=== PATIENT | male | born 1955 | race Caucasian/White ===

== ENCOUNTER 2017-04-13 13:30 | Outpatient (RCR) | payer OTHER, SELFPAY ==
[2017-03-16 01:30] VITALS: BP 126/90; PULSE 105; RESP 18; TEMP 37.1; BMI 24.7
[2017-03-17 09:24] VITALS: BP 142/83; PULSE 69; RESP 18; TEMP 36.8; BMI 24.7
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
[2017-03-19 14:55] VITALS: BP 149/91; PULSE 93; RESP 18; TEMP 36.6; BMI 24.7
[2017-03-24 13:54] VITALS: BP 156/94; PULSE 89; RESP 16; TEMP 37.4; BMI 24.7
[2017-03-30 11:43] VITALS: BP 133/72; PULSE 80; RESP 18; TEMP 36.8; BMI 24.7
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
[2017-04-01 11:43] VITALS: BP 140/84; PULSE 87; RESP 18; TEMP 36.9; BMI 24.7
[2017-04-03 10:06] VITALS: BP 131/81; PULSE 79; TEMP 37; BMI 24.7
[2017-04-06 12:53] VITALS: BP 140/107; PULSE 98; RESP 16; TEMP 37.1; BMI 24.7
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
[2017-04-13 13:57] VITALS: BP 136/89; PULSE 107; RESP 18; TEMP 37.6; BMI 24.7
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
== END 2017-04-15 23:59 ==
LOC: WC 13:30
PROVIDERS: Visit Provider Surgery
DX: T81.30XA Disruption of wound, unspecified, initial encounter (principal); C18.7 Malignant neoplasm of sigmoid colon; Z93.2 Ileostomy status; Z87.891 Personal history of nicotine dependence
CPT/HCPCS: 97605; 97607; 99211; 99212; 99213; G0463

== ENCOUNTER 2017-05-11 15:00 | Outpatient (RCR) | payer OTHER, SELFPAY ==
[2017-04-13 13:57] VITALS: BP 136/89
[2017-04-16 00:50] VITALS: PULSE 107; RESP 18; TEMP 37.6
[2017-04-17 11:30] VITALS: BP 130/80; PULSE 62; RESP 16; TEMP 36.8; BMI 24.7
[2017-04-20 12:32] VITALS: BP 133/87; PULSE 88; RESP 20; TEMP 37.7; BMI 24.7
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
[2017-04-28 08:24] VITALS: BP 126/80; PULSE 106; RESP 18; TEMP 36.7; BMI 24.7
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
[2017-05-01 12:33] VITALS: BP 130/82; PULSE 96; RESP 18; TEMP 35.8; BMI 24.7
[2017-05-04 14:44] VITALS: BP 119/73; PULSE 93; RESP 18; TEMP 37.4; BMI 24.7
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
[2017-05-08 10:28] VITALS: BP 124/92; PULSE 81; RESP 16; TEMP 37.4; BMI 24.7
[2017-05-11 15:13] VITALS: BP 126/76; PULSE 93; RESP 18; TEMP 37; BMI 24.7
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
== END 2017-05-13 23:59 ==
LOC: WC 15:00
PROVIDERS: Visit Provider Surgery
DX: T81.30XA Disruption of wound, unspecified, initial encounter (principal); Y83.8 Other surgical procedures as the cause of abnormal reaction of the patient, or of later complication, without mention of misadventure at the time of the procedure; Z90.49 Acquired absence of other specified parts of digestive tract; Z85.038 Personal history of other malignant neoplasm of large intestine; Z93.2 Ileostomy status; Z87.891 Personal history of nicotine dependence; Z79.899 Other long term (current) drug therapy
CPT/HCPCS: 11042; 97607; 99211; 99212; 99213; G0463

== ENCOUNTER 2017-06-01 13:00 | Outpatient (RCR) | payer OTHER, SELFPAY ==
[2017-05-14 00:40] VITALS: BP 133/87; PULSE 93; RESP 18; TEMP 37; BMI 24.7
[2017-05-18 14:19] VITALS: BP 140/110; PULSE 105; RESP 16; TEMP 37; BMI 24.7
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
[2017-05-25 12:39] VITALS: BP 155/90; PULSE 78; RESP 16; TEMP 36.6; BMI 24.7
[2017-05-28 14:11] VITALS: BP 129/74; PULSE 83; RESP 16; BMI 24.7
[2017-06-01 13:00] VITALS: BP 130/86; PULSE 95; RESP 16; TEMP 37; BMI 24.7
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
[2017-06-08 08:13] VITALS: BP 129/74; PULSE 89; RESP 16; TEMP 37.5; BMI 24.7
== END 2017-06-13 23:59 ==
LOC: WC 13:00
PROVIDERS: Visit Provider Surgery
DX: T81.31XA Disruption of external operation (surgical) wound, not elsewhere classified, initial encounter (principal); Z93.2 Ileostomy status; Z90.49 Acquired absence of other specified parts of digestive tract; Z87.891 Personal history of nicotine dependence; Y83.8 Other surgical procedures as the cause of abnormal reaction of the patient, or of later complication, without mention of misadventure at the time of the procedure; C18.7 Malignant neoplasm of sigmoid colon
CPT/HCPCS: 97607; 99212; 99213; G0463

== ENCOUNTER 2017-07-13 12:30 | Outpatient (RCR) | payer OTHER, SELFPAY ==
[2017-06-14 00:36] VITALS: BP 133/87; PULSE 89; RESP 16; TEMP 37.5; BMI 24.7
[2017-06-16 13:00] VITALS: BP 118/72; PULSE 86; RESP 18; TEMP 36.9; BMI 24.7
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
[2017-06-23 08:08] VITALS: BP 127/59; PULSE 87; RESP 18; TEMP 36.6; BMI 24.7
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
[2017-06-29 14:53] VITALS: BP 126/80; PULSE 93; RESP 18; TEMP 36.7; BMI 24.7
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
[2017-07-06 12:28] VITALS: BP 120/85; PULSE 86; RESP 16; TEMP 36.8; BMI 24.7
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
[2017-07-09 16:49] VITALS: BP 143/96; PULSE 91; RESP 16; TEMP 37.2; BMI 24.7
[2017-07-13 12:31] VITALS: BP 120/80; PULSE 94; RESP 18; TEMP 37.2; BMI 24.7
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
== END 2017-07-13 23:59 ==
LOC: WC 12:30
PROVIDERS: Visit Provider Surgery
DX: T81.31XA Disruption of external operation (surgical) wound, not elsewhere classified, initial encounter (principal); Y83.9 Surgical procedure, unspecified as the cause of abnormal reaction of the patient, or of later complication, without mention of misadventure at the time of the procedure; Z90.49 Acquired absence of other specified parts of digestive tract; Z93.2 Ileostomy status; C18.7 Malignant neoplasm of sigmoid colon; Z87.891 Personal history of nicotine dependence
CPT/HCPCS: 11042; 87070; 87075; 87077; 87186; 87205; 97605; 97607; 99212; 99213; G0463

== ENCOUNTER 2017-08-03 12:30 | Outpatient (RCR) | payer OTHER, SELFPAY ==
[2017-07-14 00:33] VITALS: BP 133/87; PULSE 94; RESP 18; TEMP 37.2; BMI 24.7
[2017-07-27 13:06] VITALS: BP 115/62; PULSE 89; RESP 18; TEMP 37; BMI 24.7
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
[2017-08-03 12:38] VITALS: BP 121/69; PULSE 82; RESP 16; TEMP 37.2; BMI 24.7
--- NOTE | 2017-08-04 09:31 | PN_ITS ---
DATE OF SERVICE: 08/03/2017 The patient presents today in routine followup relative to his abdominal surgical wound dehiscence. He is currently using Collagen Hydrogel topically. He has no new complaints. The size of the patient's surgical wound dehiscence is smaller than that noted previously. The wound dimensions are documented elsewhere, as well as vital signs and other measurements. The appearance of the surgical wound dehiscence is improved. Not only is smaller in size, but the base of the wound is pink and healthy in appearance, with active granulation tissue. There is evidence of peripheral epithelialization. There is no sign of infection or cellulitis. The patient's abdominal stoma is pink and healthy in appearance, and functional. The patient is to continue with the use of collagen Hydrogel topically. All other measures are also to be continued, including enhanced nutritional intake, etc. The patient will be undergoing ____ and chemotherapy this week, and one more course 2 weeks from now. He is scheduled to interact with his oncologist in the near future, and has been encouraged to ask as to the length of effect of his chemotherapy agents, as it is the chemotherapeutic agents, which are thought to be impairing wound healing at this time. The patient will return in 2 weeks for reassessment. The patient is not a smoker. Influenza vaccine was not administered today. The patient weighs 175 pounds. He stands 5 feet 10 inches tall. His BMI is 25.1, which is normal. Jordan Cleveland MD T: NTS JOB: [id number]
--- NOTE | 2017-08-04 09:45 | PN_ITS ---
DATE OF SERVICE: 08/03/2017 The patient's abdominal surgical wound dehiscence was debrided today. Debridement was performed in standard fashion by sterile 5-mm curette. An excisional debridement was performed, through all layers of the dermis and into the subcutaneous tissue. In this manner, the nonviable material and bioburden was removed. A moderate amount of bleeding was encountered, which was easily controlled with manual pressure. The procedure was performed after the application of 4% lidocaine gel. Manual pressure was used to achieve hemostasis. The patient tolerated the procedure well. Jordan Cleveland MD T: NTS JOB: [id number]
== END 2017-08-13 23:59 ==
LOC: WC 12:30
PROVIDERS: Visit Provider Surgery
DX: T81.30XA Disruption of wound, unspecified, initial encounter (principal); S31.109A Unspecified open wound of abdominal wall, unspecified quadrant without penetration into peritoneal cavity, initial encounter; C18.7 Malignant neoplasm of sigmoid colon; Y83.8 Other surgical procedures as the cause of abnormal reaction of the patient, or of later complication, without mention of misadventure at the time of the procedure; K63.2 Fistula of intestine; Z90.49 Acquired absence of other specified parts of digestive tract; Z93.2 Ileostomy status; Z86.19 Personal history of other infectious and parasitic diseases; Z87.891 Personal history of nicotine dependence
CPT/HCPCS: 11042

== ENCOUNTER 2017-09-07 17:10 | Outpatient (RCR) | payer OTHER, SELFPAY ==
[2017-08-14 00:32] VITALS: BP 121/69; PULSE 82; RESP 16; TEMP 37.2; BMI 24.7
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
[2017-09-07 15:01] VITALS: RESP 18; TEMP 37; BMI 24.7
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
== END 2017-09-12 23:59 ==
LOC: WC 17:10
PROVIDERS: Visit Provider Surgery
DX: T81.30XA Disruption of wound, unspecified, initial encounter (principal); Y83.8 Other surgical procedures as the cause of abnormal reaction of the patient, or of later complication, without mention of misadventure at the time of the procedure; C18.7 Malignant neoplasm of sigmoid colon; Z87.891 Personal history of nicotine dependence; Z79.899 Other long term (current) drug therapy
CPT/HCPCS: 11042; 99211; G0463

== ENCOUNTER 2017-10-12 15:15 | Outpatient (RCR) | payer OTHER, SELFPAY ==
[2017-09-13 00:32] VITALS: BP 121/69; PULSE 82; RESP 18; TEMP 37; BMI 24.7
[2017-09-21 13:31] VITALS: BP 125/87; PULSE 79; RESP 18; TEMP 37; BMI 24.7
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
[2017-10-12 15:09] VITALS: BP 145/81; PULSE 80; RESP 20; TEMP 37.5; BMI 24.7
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
== END 2017-10-13 23:59 ==
LOC: WC 15:15
PROVIDERS: Visit Provider Surgery
DX: T81.31XA Disruption of external operation (surgical) wound, not elsewhere classified, initial encounter (principal); C18.7 Malignant neoplasm of sigmoid colon; Y83.8 Other surgical procedures as the cause of abnormal reaction of the patient, or of later complication, without mention of misadventure at the time of the procedure; Z90.49 Acquired absence of other specified parts of digestive tract; Z93.2 Ileostomy status; Z86.19 Personal history of other infectious and parasitic diseases; Z87.891 Personal history of nicotine dependence
CPT/HCPCS: 11042; 99213; G0463

== ENCOUNTER → 2019-06-09 12:56 | Outpatient (CLI) | payer MEDICARE, SELFPAY ==
[2017-10-14 00:35] VITALS: BMI 24.7
[2019-06-09 13:32] LABS: Absolute Lymphocyte Count 2.98 X10^3/uL (0.83-4.51); Basophil# 0.07 X10^3/uL; Basophil% 0.9 % (0-1); Eosinophil# 0.24 X10^3/uL; Eosinophils% 2.9 % (0-5); Hematocrit 45.9 % (40-54); Hemoglobin 15.4 g/dL (13.0-16.5); Lymphocyte # 2.98 X10^3/ul (4.0); Lymphocyte % 36.6 % (19-41); Mean Corp Hgb Conc 33.6 g/dL (32-36); Mean Corpuscular Hgb 31.3 pg (27.0-32.0); Mean Corpuscular Volume 93.3 fL (80-94); Mean Platelet Vol. 9.9 fl (6.2-12.0); Monocyte# 0.84 X10^3/uL; Monocyte% 10.3 % (0-10); NRBC Flagged by Analyzer 0 % (0-5); Neutrophil # 3.99 X10^3/uL (2.7-7.7); Neutrophil % 49.1 % (47-70); Platelet Count 200 K/mm3 (150-450); RBC Distribution Width CV 12.6 % (11.6-14.6); Red Blood Count 4.92 M/mm3 (4.6-6.2); White Blood Count 8.1 K/mm3 (4.4-11.0)
[2019-06-09 13:51] LABS: AST(SGOT) 29 U/L (15-37); Alanine Aminotransfer ALT/SGPT 50 U/L (16-61); Alkaline Phosphatase 78 U/L (45-117); Anion Gap 7 (5-15); BUN 23 mg/dL (7-18); BUN/Creat Ratio 19.3 RATIO (10-20); Chloride 105 mmol/L (98-107); Creatinine, Serum 1.19 mg/dL (0.70-1.30); EST Glomerular Filtration Rate 65 mL/min (>60); Est Glom Filt Rate - Afr Amer 79 mL/min (>60); Globulin 4.1 g/dL (2.2-4.2); Glucose 88 mg/dL (74-106); Potassium 4.2 mmol/L (3.5-5.1); Protein, Total 8.1 g/dL (6.4-8.2); Sodium Level 138 mmol/L (136-145)
[2019-06-10 12:49] LABS: Carcinoembryonic Antigen 4.1 ng/mL (0.0-4.7)
== END ==
DX: Z85.038 Personal history of other malignant neoplasm of large intestine (principal)
CPT/HCPCS: 36415; 80053; 82378; 85025

== ENCOUNTER → 2019-09-14 13:16 | Outpatient (CLI) | payer MEDICARE, SELFPAY ==
[2017-10-14 00:35] VITALS: BMI 24.7
[2019-09-14 13:53] LABS: Absolute Lymphocyte Count 2.35 X10^3/uL (0.83-4.51); Absolute Neutrophil Count 3.7 X10^3/uL (2.0-7.7); Basophil# 0.06 X10^3/uL; Basophil% 0.9 % (0-1); Eosinophils% 1.5 % (0-5); Hematocrit 42.8 % (40-54); Hemoglobin 14.6 g/dL (13.0-16.5); Lymphocyte # 2.35 X10^3/ul (4.0); Lymphocyte % 34.6 % (19-41); Mean Corp Hgb Conc 34.1 g/dL (32-36); Mean Corpuscular Hgb 32.3 pg (27.0-32.0); Mean Corpuscular Volume 94.7 fL (80-94); Mean Platelet Vol. 9.6 fl (6.2-12.0); Monocyte# 0.56 X10^3/uL; Monocyte% 8.2 % (0-10); NRBC Flagged by Analyzer 0 % (0-5); Neutrophil % 54.5 % (47-70); Platelet Count 200 K/mm3 (150-450); RBC Distribution Width CV 12.6 % (11.6-14.6); RBC Distribution Width SD 43.6 fl (35.1-43.9); Red Blood Count 4.52 M/mm3 (4.6-6.2); White Blood Count 6.8 K/mm3 (4.4-11.0)
[2019-09-14 14:10] LABS: ALB/GLOB Ratio 1.1 RATIO (0.9-2.4); AST(SGOT) 28 U/L (15-37); Alanine Aminotransfer ALT/SGPT 45 U/L (16-61); Albumin, Serum 3.9 g/dL (3.2-5.0); Alkaline Phosphatase 64 U/L (45-117); Anion Gap 5 (5-15); BUN 19 mg/dL (7-18); BUN/Creat Ratio 12.8 RATIO (10-20); Calcium,Total 8.8 mg/dL (8.5-10.1); Chloride 109 mmol/L (98-107); Creatinine, Serum 1.48 mg/dL (0.70-1.30); EST Glomerular Filtration Rate 51 mL/min (>60); Est Glom Filt Rate - Afr Amer 61 mL/min (>60); Globulin 3.7 g/dL (2.2-4.2); Glucose 112 mg/dL (74-106); Potassium 3.8 mmol/L (3.5-5.1); Protein, Total 7.6 g/dL (6.4-8.2); Sodium Level 139 mmol/L (136-145)
[2019-09-17 16:10] LABS: Carcinoembryonic Antigen 4.9 ng/mL (0.0-4.7)
== END ==
PROVIDERS: Referring Provider Internal Medicine Medical Oncology; Visit Provider Internal Medicine Medical Oncology
DX: C18.6 Malignant neoplasm of descending colon (principal)
CPT/HCPCS: 36415; 80053; 82378; 85025

== ENCOUNTER 2021-12-07 17:30 | Emergency (ER) | payer MEDICARE, BC, SELFPAY ==
[2021-12-07 17:31] VITALS: BP 139/99; PULSE 89; RESP 16; TEMP 37.4; O2SAT 95; BMI 28.4
[2021-12-07 17:33] VITALS: BP 139/99; PULSE 89; RESP 16; TEMP 37.4; O2SAT 95
--- NOTE | 2021-12-07 18:04 | RAD_ITS ---
STUDY: X-RAY - RIGHT HAND, ATTENTION 3 FINGER REASON FOR EXAM: Male, 66 years old. Injury/Pain -- Right long finger TECHNIQUE: 3 view(s) of the finger were obtained. COMPARISON: None. FINDINGS: Normal metacarpal head. Normal metacarpophalangeal joint. Normal proximal phalanx. Normal middle phalanx. Normal distal phalanx. Normal proximal interphalangeal joint. Normal distal interphalangeal joint. RAD/Finger(s) Min 2 Views IMPRESSION: Normal x-ray examination of the finger. Electronically Signed: Brayden Soliz MD at 18:38 EDT ,
--- NOTE | 2021-12-07 18:33 | EX.ED.UPPERE ---
HPI History of Present Illness Chief Complaint: Wound Detail of Chief Complaint: Pain and swelling radial side right long finger Informant: patient Onset/Context/Timing Onset: Weeks (Wound concern of splinter foreign body right long finger 1 week ago) Context: Sudden Onset Timing: Continuous Quality of Pain: Dull and Aching Location: Soft tissue swelling Current Severity: Mild Maximum Severity: Moderate Worsened by: Pain to palpation Relieved by: Remaining still Associated Symptoms Associated Symptoms: Negative for Parasthesia, Weakness or Loss of Funtion Narrative Tetanus Immunization: 5-10 years Prior similar symptoms: No Recent Illness/Hospitalization: No PFSH PFSH Medical History Colon cancer Home Medications NK 12/07/21 [History Last Taken Unknown] Allergy/AdvReac Type Severity Reaction Status Date / Time No Known Allergies Allergy Verified 01/30/17 19:34 Social History (Updated 12/07/21 @ 18:[address] Adrian Hyman MD) Smoking Status: Former smoker substance use type: does not use ROS ROS ED Constitutional Constitutional ED: Denies chills, fever(s), subjective, sweats or weight loss Eyes Eyes: Denies blurry vision, change in vision or diplopia Integumentary Reports abscess; Denies Abrasions or rash Neurologic Neurologic: Denies paresthesias or weakness Endocrine Endocrinology: Denies cold intolerance or heat intolerance Hematologic/Lymphatic Hematologic/Lymphatic: Denies easy bleeding or easy bruising EXAM Physical Exam Const Vital Signs: 12/07/21 17:31 12/07/21 17:33 12/07/21 17:33 Temperature 99.3 F H 99.3 F H 99.3 F H Temperature Source Temporal Temporal Temporal Pulse Rate 89 89 89 Respiratory Rate 16 16 16 Blood Pressure 139/99 H 139/99 H 139/99 H Blood Pressure Mean 112 112 112 Pulse Ox 95 95 95 Oxygen Delivery Method Room Air Room Air Room Air Positive well nourished and well developed General Appearance ED: well developed and NAD; Negative for cyanotic or diaphoretic HEENT Reports moist mucous membranes normocephalic and atraumatic Eyes PERRL and EOMs intact bilaterally Resp normal respiratory effort and clear to auscultation bilaterally Cardio regular rate, regular rhythm, S1 normal heart sound, S2 normal heart sound and no murmurs Extremity Extremity Narrative: There is tenderness and fluctuance radial side of the right long finger near the cuticle. Wound. Patient states he attempted to open the wound with a knife. Neuro oriented x3 and CN's II-XII intact bilaterally Psych mental status grossly normal Skin General Skin Exam: Negative for petechiae Lesions: No no lesions Rashes: No no rashes Trauma: laceration MDM MDM MDM Narrative Medical decision making narrative: X-ray was obtained. X-ray reveals no foreign body. There is no evidence of osteomyelitis. Plan will be to anesthetize finger and do a formal I&D. Lab Data Attestation: I reviewed the patient's lab results. Radiography Diagnostic Testin views of the right long finger obtained with no evidence of foreign body, osteomyelitis or any bony abnormality. This was interpreted by me at 1837 Procedures Other Procedures Procedure(s): It was Nestabs 5 metacarpal nerve block using 1% lidocaine. Total of 3 cc was infiltrated. After 15 minutes incision was made. There was significant mount of purulent material. There is approximately 2 cc of green thick Material noted. There was no foreign body. Patient was discharged home with appropriate home-going instructions. Discharge Plan Triage Chief Complaint: Wound ED Provider: Adrian Hyman Dx/Rx/DC Orders Clinical Impression: Paronychia of finger Prescriptions: No Action NK Primary Care Provider: Zacarias Madrigal Referrals: Zacarias Madrigal MD [Primary Care Provider] - 3-5 Days if not improving Activity Restrictions/Additional Instructions: Soak your right long finger in warm soapy water 6 times a day for the next 2 to 3 days Disposition Disposition: Home, Self Care
[2021-12-07 19:35] VITALS: BP 127/81; RESP 18
[2021-12-07] MEDS: Lidocaine 1% (20 ml mdv) 20 ML Vial INFILT (19:38)
== END 2021-12-07 20:18 | disposition home or self-care (01) ==
PROVIDERS: Emergency Provider Emergency Medicine; PCP Family Medicine; Visit Provider Emergency Medicine
DX: L03.011 Cellulitis of right finger (principal); Z87.891 Personal history of nicotine dependence
CPT/HCPCS: 26010; 10060; 73140; 99282

== ENCOUNTER → 2022-03-27 | Outpatient (CLI) | payer MEDICARE, BC, SELFPAY | END | disposition home or self-care (01) | LOC: LAB 10:10 | PROVIDERS: PCP Family Medicine; Visit Provider Internal Medicine Medical Oncology | DX: C18.6 Malignant neoplasm of descending colon (principal) | CPT/HCPCS: 36415; 82378 ==

== ENCOUNTER 2023-04-18 10:02 | Emergency (ER) | payer MEDICARE, BC, SELFPAY ==
[2023-04-18 10:03] VITALS: BP 136/78; PULSE 64; RESP 16; TEMP 36.4; O2SAT 97; BMI 26.3
--- NOTE | 2023-04-18 10:20 | CT_ITS ---
EXAM: CT ABDOMEN AND PELVIS WITH INTRAVENOUS CONTRAST CLINICAL INDICATION: postop abd pain/discharge, eval for abscess/seroma TECHNIQUE: Helically acquired images were obtained of the abdomen and pelvis with intravenous contrast. This CT exam was performed using one or more of the following dose reduction techniques: automated exposure control, adjustment of the mA and/or kV according to patient size, and/or use of iterative reconstruction technique. CONTRAST: IV 100mL [id number]-370 COMPARISON: CT Abdomen Pelvis dated 12/27/2016 FINDINGS: LOWER THORAX: Mild centrilobular emphysematous changes of the lung bases again seen. ABDOMEN: LIVER: Normal. Homogeneous. No focal mass. CT/Abdomen/Pelvis W IV Cont ONLY IMPRESSION: 1. Postoperative changes of anterior abdominal wall surgical mesh and near total colectomy. Fluid collections along the incision site which may represent seroma or abscess formation. 2. Cholelithiasis. Electronically Signed: Suresh Grubbs MD at 11:30 EST ,
--- NOTE | 2023-04-18 10:20 | EDS_ITS ---
HPI HPI - GI History of Present Illness Chief Complaint: Wound Informant: patient Narrative Narrative: Patient had a left ventral herniorrhaphy along with colostomy reversal a little less than 1 month ago on 03/24 at [facility]. He states everything has been going very well. He has been eating and having bowel movements normally. He has an open wound that he is packing himself twice daily with moist strip gauze. In the past week, there has been more blood on the gauze than he had initially, occasionally saturating the packing but not the gauze that he puts over top of that. This has been going on for the past week. Discussed with his surgeon who advised that he be evaluated in the ER since it is the weekend. Patient states that there is erythema radiating cranially from that wound that is new in the past week, he states it is a little sore but not extremely painful and he denies any fevers, chills, other systemic symptoms. [facility] Medical History (Updated 04/18/23 @ 12:[address] Curly Guardado MD) Colon cancer Home Medications NK 12/07/21 [History Last Taken Unknown] cephalexin 500 mg capsule 500 mg PO Q6 #40 CAPSULES 04/18/23 [Rx Last Taken Unknown] sulfamethoxazole 800 mg-trimethoprim 160 mg tablet 1 tab PO BID #20 TABLETS 04/18/23 [Rx Last Taken Unknown] Allergy/AdvReac Type Severity Reaction Status Date / Time No Known Allergies Allergy Verified 04/18/23 10:02 Surgical History (Updated 04/18/23 @ 10:[address] Curly Guardado MD) History of colostomy reversal History of hernia repair Social History Smoking Status: Former smoker substance use type: does not use ROS ROS ED Constitutional Constitutional ED: Denies chills or fever(s) Eyes Eyes: Denies change in vision or diplopia ENT ENT ED: Denies rhinorrhea or sore throat Cardiovascular Cardiovascular: Denies chest pain or palpitations Respiratory/Chest Respiratory/Chest: Denies cough or dyspnea Gastrointestinal Gastrointestinal: Denies abdominal pain, diarrhea, nausea or vomiting Genitourinary Genitourinary ED: Denies dysuria or hematuria Musculoskeletal Musculoskeletal: Denies back pain or neck pain Integumentary Reports as per HPI, erythema and wounds; Denies abscess or rash Neurologic Neurologic: Denies headache(s), paresthesias or weakness Psychiatric Psychiatric: Denies anxiety or suicidal thoughts EXAM Physical Exam Const Vital Signs: 04/18/23 10:03 Temperature 97.6 F L Temperature Source Temporal Pulse Rate 64 Respiratory Rate 16 Blood Pressure 136/78 H Blood Pressure Mean 97 Pulse Ox 97 Oxygen Delivery Method Room Air Positive well nourished and well developed Constitutional Narrative: Well-appearing General Appearance ED: well developed and NAD HEENT Reports moist mucous membranes normocephalic and atraumatic Eyes PERRL and EOMs intact bilaterally Neck full ROM and supple Resp normal respiratory effort and clear to auscultation bilaterally Cardio regular rate, regular rhythm and no murmurs GI non-tender and non-distended GI Narrative: Large midline abdominal surgical incision without dehiscence. There is an open wound that is about 2.5-3 cm deep with strip gauze packing in it, there is no active bleeding or discharge. There is a scant amount of serous discharge on the gauze covering this, and in pulling out the packing, there is minimal amount of serosanguineous discharge on it no gross blood, no active bleeding, the inside is basically consistent with mucosa/abdominal wall without signs of necrotic tissue or obvious infection. However there is mildly tender erythema with induration extending from here cranially about 6 cm. There is no fluctuance or palpable abscess and the rest of the abdomen is extremely benign. Auscultation: normoactive bowel sounds Palpation: soft Back/Spine no CVA tenderness General Back: other FROM Extremity normal to inspection General Extremety ED: Negative for edema, pulses abnormal or tenderness General Extremity: Negative for edema or pulses abnormal Neuro oriented x3, CN's II-XII intact bilaterally and no sensory deficits noted Sensorium / Orientation: awake and alert Motor Exam: strength 5/5 throughout Psych mental status grossly normal and thought process normal Skin no rashes or lesions noted and no wounds MDM MDM MDM Narrative Medical decision making narrative: This looks like a relatively mild abdominal wall cellulitis. However since it is emanating from the open wound and he is having more bloody discharge from the wound itself, I think it would be indicated to perform a CT to evaluate for a possible infected seroma or abscess. This was performed I reviewed the images of the CT as well as the result which I agree with, the 1 fluid collection that appears to be easily drainable is directly beneath the erythematous area I was concerned would be cellulitis. See the procedure note, I recommended that we aspirate this area to help differentiate whether it is a seroma or an abscess. After aspirating 9.5 cc of what appears to be purulent thick pus, it clearly is an abscess which correlates with the overlying erythema and swelling. It deflated with aspiration of the contents. There is not appear to be christopher communication with the wound that he has packing, therefore aspiration was indicated. Given that it is pus, MRSA is a consideration, and he has a history of a multidrug-resistant organism infection of some kind, so I am covering him for now with broad-spectrum coverage for MRSA as well as strep and nonresistant staph, with a dose of IV Zosyn as well as placing him on cephalexin and Bactrim going forward. He will follow-up with his surgeon this coming week, I had the CT images sent to the [facility] warrant server and he is directed to sign into the hospital portal so he can access to culture when he follows up. Lab Data Attestation: I reviewed the patient's lab results. Labs: Laboratory Results - last 24 hr 04/18/23 10:28 WBC 8.7 RBC 3.95 L Hgb 11.8 L Hct 35.6 L MCV 90.1 MCH 29.9 MCHC 33.1 RDW Std Deviation 42.5 RDW Coeff of Sofie 12.7 Plt Count 236 MPV 8.4 Immature Gran % (Auto) 0.300 Neut % (Auto) 62.7 Lymph % (Auto) 21.6 [place] % (Auto) 11.8 H Eos % (Auto) 3.0 Baso % (Auto) 0.6 Absolute Neuts (auto) 5.5 Absolute Lymphs (auto) 1.88 Nucleated RBC % 0 Sodium 133 L Potassium 4.2 Chloride 102 Carbon Dioxide 27.0 Anion Gap 4 L BUN 11 Creatinine 1.02 Estim Creat Clear Calc 70.57 Est GFR (MDRD) Af Amer 93 Est GFR (MDRD) Non-Af 77 BUN/Creatinine Ratio 10.8 Glucose 101 Calcium 9.2 Radiography Diagnostic Testing: Clinical Impression(s) from Imaging Studies Abdomen/Pelvis CT 04/18/23 10:20 IMPRESSION: 1. Postoperative changes of anterior abdominal wall surgical mesh and near total colectomy. Fluid collections along the incision site which may represent seroma or abscess formation. 2. Cholelithiasis. Electronically Signed: Suresh Grubbs MD at 11:30 EST , Procedures Other Procedures Procedure(s): Simple abscess incision/drainage: After informed consent, the area of the abdominal wall with overlying erythema that correlates with the abdominal wall abscess on the CT was prepped with isopropanol, subcutaneously locally anesthetized with 1 cc of plain 1% lidocaine, again prepped with Betadine swab, and punctured with an 18-gauge needle on a 10 cc syringe, with gentle redirection of the needle and palpation of the surrounding area I was able to aspirate 9.5 cc of pus. Dressed with gauze subsequently, tolerated well no pain with the procedure, therefore very low likelihood of peritoneum penetration. Discharge Plan Triage Chief Complaint: Wound ED Provider: Curly Guardado Dx/Rx/DC Orders Clinical Impression: Abscess of postoperative wound of abdominal wall Instructions: ED Abscess Incision And Drainage Prescriptions: New sulfamethoxazole-trimethoprim [sulfamethoxazole-trimethoprim] 800-160 mg tablet 1 tab PO BID Qty: 20 0RF cephalexin [cephalexin] 500 mg capsule 500 mg PO Q6 Qty: 40 0RF No Action NK Primary Care Provider: Zacarias Madrigal Referrals: [facility] Surgeon, your [Other] - 3-5 Days Zacarias Madrigal MD [Primary Care Provider] - Activity Restrictions/Additional Instructions: CT was sent to [facility] servers, so your surgeon should be able to view the images which were pre-aspiration of the abscess. We sent a culture of the contents that was aspirated, which should return results within 2 or 3 days, make sure you follow-up as soon as possible so that your antibiotic coverage can be adjusted appropriately. You have a higher chance of having diarrhea and/or C. difficile infection being on 2 antibiotics. To help mitigate this risk, take either a twice daily probiotic or eat yogurt every day while you are on the antibiotics. Disposition Disposition: Home, Self Care
[2023-04-18 10:34] LABS: Absolute Lymphocyte Count 1.88 X10^3/uL (0.83-4.51); Absolute Neutrophil Count 5.5 X10^3/uL (2.0-7.7); Basophil# 0.05 X10^3/uL; Basophil% 0.6 % (0-1); Eosinophil# 0.26 X10^3/uL; Hematocrit 35.6 % (40-54); Hemoglobin 11.8 g/dL (13.0-16.5); Lymphocyte # 1.88 X10^3/ul (0.83-4.51); Lymphocyte % 21.6 % (19-41); Mean Corp Hgb Conc 33.1 g/dL (32-36); Mean Corpuscular Hgb 29.9 pg (27.0-32.0); Mean Corpuscular Volume 90.1 fL (80-94); Mean Platelet Vol. 8.4 fl (6.2-12.0); Monocyte# 1.03 X10^3/uL; Monocyte% 11.8 % (0-10); NRBC Flagged by Analyzer 0 % (0-5); Neutrophil # 5.45 X10^3/uL (2.7-7.7); Neutrophil % 62.7 % (47-70); Platelet Count 236 K/mm3 (150-450); RBC Distribution Width CV 12.7 % (11.6-14.6); RBC Distribution Width SD 42.5 fl (35.1-43.9); Red Blood Count 3.95 M/mm3 (4.6-6.2); White Blood Count 8.7 K/mm3 (4.4-11.0)
[2023-04-18 10:50] LABS: Anion Gap 4 (5-15); BUN 11 mg/dL (7-18); BUN/Creat Ratio 10.8 RATIO (10-20); Calcium,Total 9.2 mg/dL (8.5-10.1); Chloride 102 mmol/L (98-107); Creatinine, Serum 1.02 mg/dL (0.70-1.30); EST Glomerular Filtration Rate 77 mL/min (>60); Est Glom Filt Rate - Afr Amer 93 mL/min (>60); Estimated Creatinine Clearance 70.57 ml/min; Glucose 101 mg/dL (74-106); Potassium 4.2 mmol/L (3.5-5.1); Sodium Level 133 mmol/L (136-145)
--- OUTSIDE RECORDS SUMMARY | 2023-04-18 11:18 | XMS RPT_ITS | CCD ---
Author Name Unknown Address [address] [place] [address] Organization [facility] Care Team Providers Care Tool And Die Technician Name Role Phone Kaylie Madrigal MD Primary Care Provider ALYCIA RICHARDSON Attending Unavailable SUZE TRIPP Referring Unavailable KAYLIE MADRIGAL Primary Care UnavailALYCIA López Referring Unavailable RTICIA MAXWELL Attending Unavailable KAYLIE MADRIGAL Primary Care UnavailSUZE Jones Attending Unavailable KAYLIE MADRIGAL Primary Care KAYLIE Garcia Referring ALYCIA Rodriguez Admitting Unavailable ALYCIA RICHARDSON Attending Unavailable KAYLIE MADRIGAL Primary Care UnavailSUZE Jones Attending Unavailable KAYLIE MADRIGAL Primary Care UnavailKAYLIE Sterling Referring Kaylie Garcia MD Primary Care Provider Matthew COLE, Claritza Unavailable Unavailable Medications Current Medications Medication Drug Class(es) Dates Sig (Normalized) Sig (Original) acetaminophen 325 mg oral tablet (3 sources) Start: 03-31-2023 End: 04-10-2023 take 3 tablets by mouth every eight hours Acetaminophen 325 MG tablet Take 3 tablets by mouth every 8 hours for 10 days. 90 tablet 0 03/31/2023 04/10/2023 Active Completed/Discontinued Medications Medication Drug Class(es) Dates Sig (Normalized) Sig (Original) albuterol 0.833 mg/ml / ipratropium bromide 0.167 mg/ml inhalation solution (3 sources) Anticholinergic, beta2-Adrenergic Agonist Start: 03-26-2023 End: 03-31-2023 take 3 mL by inhalation every six hours Ipratropium-albut rocky (DUONEB) 0.5-2.5 (3) MG/3ML nebulizer solution 3 mL Problems Active Problems Problem Classification Problem Date Documented Da te Episodic/Chronic Abdominal hernia (5 sources) Hernia of anterior abdominal wall; Translations: [Ventral hernia without obstruction or gangrene] Onset: 03-24-2023 10-16-2022 Episodic Cancer of colon (18 sources) Malignant tumor of descending colon; Translations: [Malignant neoplasm of descending colon] Onset: 02-16-2017 Resolved: 03-23-2020 Chronic Cancer of colon (5 sources) History of malignant neoplasm of colon; Translations: [Personal history of other malignant neoplasm of large intestine] Onset: 03-24-2023 09-21-2022 Episodic Other gastrointestinal disorders (5 sources) Ileostomy present; Translations: [Ileostomy status] Onset: 03-24-2023 10-16-2022 Chronic Other gastrointestinal disorders (2 sources) Ileostomy status; Translations: [Ileostomy status] Onset: 03-24-2023 Chronic Respiratory failure; insufficiency; arrest (adult) (1 source) Acute respiratory failure; Translations: [Acute respiratory failure with hypoxia] 03-31-2023 Episodic Past or Other Problems Problem Classification Problem Date Documented Da te Episodic/Chronic Intestinal obstruction without hernia (7 sources) Small bowel obstruction; Translations: [Unspecified intestinal obstruction, unspecified as to partial versus complete obstruction] Onset: 12-31-2016 12-31-2016 Episodic Mood disorders (7 sources) Mood disorders Onset: 05-24-2021 Resolved: 01-07-2022 05-24-2021 Open wounds of head; neck; and trunk (7 sources) Open wound of abdomen; Translations: [Unspecified open wound of abdominal wall, unspecified quadrant without penetration into peritoneal cavity, initial encounter] Onset: 02-05-2017 Resolved: 03-23-2020 03-23-2020 Episodic Other gastrointestinal disorders (7 sources) Disorder of colon; Translations: [Disease of intestine, unspecified] Onset: 01-13-2017 01-13-2017 Episodic Other gastrointestinal disorders (7 sources) Mass of colon; Translations: [Other specified diseases of intestine] Onset: 01-13-2017 Resolved: 03-23-2020 03-23-2020 Episodic Other screening for suspected conditions (not mental disorders or infectious disease) (3 sources) Patient encounter status; Translations: [Encounter for screening for malignant neoplasm of prostate] Onset: 09-19-2022 09-19-2022 Episodic Residual codes; unclassified (3 sources) History of flexible sigmoidoscopy; Translations: [Other specified postprocedural states] Onset: 07-11-2021 10-16-2022 Episodic Results Test Name Value Interpretation Reference Range Facil ity Vital Signs Date Time Vital Sign Value Performing Clinician Alondra de la torre 03-31-2023 13:43-0500 Body temperature 98.1 [degF] Alycia Richardson MD Work Phone: [facility] 03-31-2023 13:43-0500 Diastolic blood pressure 90 mm[Hg] Alycia Richardson MD Work Phone: [facility] 03-31-2023 13:43-0500 Heart rate 94 /min Alycia Richardson MD Work Phone: [facility] 03-31-2023 13:43-0500 Respiratory rate 18 /min Alycia Richardson MD Work Phone: [facility] 03-31-2023 13:43-0500 SaO2% (BldA) [Mass fraction] 93 % Alycia Richardson MD Work Phone: [facility] 03-31-2023 13:43-0500 Systolic blood pressure 147 mm[Hg] Alycia Richardson MD Work Phone: [facility] 03-30-2023 15:40-0500 Body mass index (BMI) [Ratio] 28.9 kg/m2 Alycia Richardson MD Work Phone: [facility] 03-30-2023 15:40-0500 Body weight 91.35 kg Alycia Richardson MD Work Phone: [facility] 03-24-2023 09:05-0500 Body height 177.8 cm Alycia Richardson MD Work Phone: [facility] 11-11-2022 13:11-0400 Body height 175.3 cm Tricia Maxwell MD Work Phone: [facility] 11-11-2022 13:11-0400 Body mass index (BMI) [Ratio] 29.68 kg/m2 Tricia Maxwell MD Work Phone: [facility] 11-11-2022 13:11-0400 Body weight 91.17 kg Tricia Maxwell MD Work Phone: [facility] 11-11-2022 13:11-0400 Diastolic blood pressure 96 mm[Hg] Tricia Maxwell MD Work Phone: [facility] 11-11-2022 13:11-0400 Heart rate 71 /min Tricia Maxwell MD Work Phone: [facility] 11-11-2022 13:11-0400 Systolic blood pressure 133 mm[Hg] Tricia Maxwell MD Work Phone: [facility] 10-16-2022 13:37-0400 Body height 176 cm Alycia Richardson MD Work Phone: [facility] 10-16-2022 13:37-0400 Body mass index (BMI) [Ratio] 29.7 kg/m2 Alycia Richardson MD Work Phone: [facility] 10-16-2022 13:37-0400 Body temperature 97.2 [degF] Alycia Richardson MD Work Phone: [facility] 10-16-2022 13:37-0400 Body weight 91.99 kg Alycia Richardson MD Work Phone: [facility] Encounters Encounter Date Encounter Type Care Provider Facility Start: 03-24-2023 End: 03-31-2023 Evaluation and management of inpatient ALYCIA RICHARDSON Facility:[facility] Procedures Date Procedure Procedure Detail Performing Clinician Start: 03-31-2023 Assay of magnesium Sim Fortune MD Work Phone: Start: 03-30-2023 Oscillating positive expiratory pressure (flutter) physiotherapy Alycia Richardson MD Work Phone: Start: 03-30-2023 Assay of magnesium Sim Fortune MD Work Phone: Start: 03-30-2023 FELIPA AURIS SCREEN BY PCR Marlene Kellogg REMOTE SENSING ADVISOR-BRAND MARKETING COORDINATOR Work Phone: Start: 03-30-2023 Oscillating positive expiratory pressure (flutter) physiotherapy Harry Cruz MD Work Phone: Start: 03-29-2023 Assay of magnesium Sim Fortune MD Work Phone: Start: 03-28-2023 Assay of magnesium Sim Fortune MD Work Phone: Start: 03-28-2023 Oscillating positive expiratory pressure (flutter) physiotherapy Harry Cruz MD Work Phone: Start: 03-28-2023 Physiotherapy of chest Harry Cruz MD Work Phone: Start: 03-27-2023 Radiologic exam ches t single view Harry Cruz MD Work Phone: Start: 03-27-2023 Oscillating positive expiratory pressure (flutter) physiotherapy Harry Cruz MD Work Phone: Start: 03-27-2023 Physiotherapy of chest Harry Cruz MD Work Phone: Start: 03-27-2023 Assay of magnesium Sim Fortune MD Work Phone: Start: 03-26-2023 Radiologic exam ches t single view Sriram Banks REMOTE SENSING ADVISOR-[facility] Work Phone: Start: 03-26-2023 Blood gases any comb ination ph pco2 po2 co2 hco3 Sriram Banks REMOTE SENSING ADVISOR-BRAND MARKETING COORDINATOR Work Phone: Start: 03-26-2023 Assay of magnesium Sim Fortune MD Work Phone: Start: 03-25-2023 Creatinine blood Sourav Tee MD Work Phone: Start: 03-25-2023 Assay of magnesium Sim Fortune MD Work Phone: Start: 03-24-2023 CARDIAC RHYTHM Other Ot her Start: 03-24-2023 Glucose measurement, blood Alycia Richardson MD Work Phone: Start: 03-24-2023 Antibody screen Alycia ventura MD Work Phone: Start: 03-24-2023 End: 03-24-2023 Laps clsr ntrstm lg/sm int w/rescj & anastomosis Alycia Richardson MD Work Phone: Start: 03-24-2023 End: 03-24-2023 Musc myocutaneous/fasciocutaneou s flap trunk Tricia Maxwell MD Work Phone: Start: 03-24-2023 End: 03-24-2023 REPAIR HERNIA ABDOMINAL INITIAL REDUCIBLE GREATER THAN 10 CM LAPAROSCOPIC Tricia Maxwell MD Work Phone: Start: 03-24-2023 Blood typing serologic abo Alycia Richardson MD Work Phone: Start: 03-24-2023 CBC AND ELECTRONIC DIFF Alycia Richardson MD Work Phone: Start: 03-24-2023 Complete blood count with white cell differential, automated Alycia Richardson MD Work Phone: Start: 03-24-2023 Creatinine blood Alycia Richardson MD Work Phone: Start: 09-19-2022 PSA screening ALYCIA SILVERMAN Plan of Treatment Date Care Activity Detail Author Start: 09-20-2023 Prostate specific antigen measurement PROSTATE CANCER SCREENING DISCUSSION [facility] Start: 04-30-2023 End: 04-30-2023 Patient encounter procedure 04/30/2023 2:15 PM EST Office Visit General and Gastrointestinal Surgery [address] [place] [address] Tricia Maxwell MD [address] [place] [address] General and Gastrointestinal Surgery [facility] Start: 04-30-2023 End: 04-30-2023 Patient encounter procedure 04/30/2023 12:15 PM EST Office Visit Division of Colon & Rectal Surgery [address] [place] [address] [place] [address] Alycia Richardson MD [address] [place] [address] Division of Colon & Rectal Surgery Start: 11-14-2022 Influenza vaccination INFLUENZA VACCINE (#1) [facility] Start: 11-11-2022 End: 11-11-2022 Patient encounter procedure 11/11/2022 12:45 PM EDT Office Visit General and Gastrointestinal Surgery [facility] [place] [address] [facility] [address] [place] [address] Tricia Maxwell MD [address] [place] [address] [address] [place] [address] General and Gastrointestinal Surgery [facility] [place] Start: 01-07-2022 End: 01-07-2022 Telemedicine consultation with patient 01/07/2022 Telemedicine Oncology Suze Tripp MD [address] [place] [address] Division of Medical Oncology Start: 01-06-2022 End: 11-22-2022 CEA CEA Lab Routine Malignant neoplasm of descending colon Expected: 01/06/2022, Expires: 11/22/2022 [facility] Immunizations Immunization Date Immunization Notes Care Provider Fa cility 12-06-2018 influenza virus vaccine, unspecified formulation Suze Tripp MD Work Phone: [facility] 10-04-2018 zoster vaccine, unspecified formulation Kristofer Guerra REMOTE SENSING ADVISOR-BRAND MARKETING COORDINATOR Work Phone: [facility] Payers Date Payer Category Payer Medicare MEDICARE MEDICAR E A AND B [id number] 2018-Present [address] [place] [address] [id number] 2018 Medicare [id number] 2018 Medicare [id number] 2018 Unknown GENERIC PAYOR ME DICARE SUPPLEMENT [id number] 2018-Present [phone] [address] [place] [address] [id number] 1953 Unknown [id number] 1953 Unknown [id number] 1953 Unknown [id number] 1953 Unknown [id number] 1953 Unknown [id number] Social History Date Type Detail Facility Start: 01-01-2017 End: 10-16-2022 Tobacco smoking status NHIS Ex-smoker [facility] End: 03-16-1986 History of tobacco use Current smoker [facility] End: 03-16-1986 History of tobacco use Cigarette Smoker [facility] Start: 01-01-2017 End: 01-07-2022 Cigarettes smoked current (pack per day) - Reported 1 [facility] Start: 01-01-2017 End: 10-16-2022 Tobacco use and exposure Smokeless tobacco non-user [facility] Start: 11-15-2021 End: 03-26-2023 Alcohol intake Current drinker of alcohol (finding) [facility] Start: 01-01-2017 History SDOH Alcohol Comment limited, social only [facility] Start: 1955 Sex Assigned At Not on file O WILLIS [facility] Start: 01-07-2022 End: 09-19-2022 Tobacco use panel [facility] Adolescent depressio n screening assessment 0 [facility] Start: 12-31-2016 Gender identity Identifies as male gender (finding) [facility] Has the electric, [facility], oil, or water company threatened to shut off services in your home in past 12Mo No [facility] How often to you hav e a drink containing alcohol? 2-3 time sa week [facility] How many standard drinks containing alcohol do you have on a typical day? 1 or 2 [facility] How often do you hav e 6 or more drinks on 1 occasion? Never [facility] (I/We) worried wheth er (my/our) food would run out before (I/we) got money to buy more. Never true [facility] Medical Equipment Procedure Code Equipment Code Equipment Origin al Text Equipment Identifier Dates Mesh [id number] Fla t Vicryl Knit Woven Surgical Hernia Repair - [id number] Start: 03-24-2023 Clinical Notes 11-22-2021 to 03-31-2023 Nursing Notes - Karma Perales RN - 03/31/2023 2:24 PM ESTNursing Notes - Karma Perales RN - 03/31/2023 2:24 PM ESTPlan of Care - GRETEL Suárez - 03/31/2023 10:04 AM ESTMedications Note Date & Type Note Facility 03-31-2023 Nurse Note Patient discharged. After visit summary reviewed with patient. All questions answered and addressed. Wound care and dressing change instructions and supplies provided. Patient verbalized understanding. VS stable, IV removed. [facility] 03-31-2023 Miscellaneous Notes Patient discharged. After visit summary reviewed with patient. All questions answered and addressed. Wound care and dressing change instructions and supplies provided. Patient verbalized understanding. VS stable, IV removed. Problem: OT - Balance Goal: Balance - Standing - Patient will perform 10+ minutes of functional task in standing with independence and good balance to promote safety and improved balance required for self-care activities. Outcome: Ongoing Problem: OT - Other Goal: Energy Conservation with ADL's - Patient will independently utilize 2-3 energy conservation/pacing strategies during ADL completion to promote success and safety during daily routine. Outcome: Ongoing This RN completed a walk test on this patient per request from Veronika Echavarria RN. This RN completed walk test at 1000. Pt oxygen saturation at rest on room air is: 88% Placed 2L oxygen via nasal cannula on patient at rest. Oxygen saturation improved to: 92% Pt oxygen saturation with exertion on 2L of oxygen dropped to: 87% Increased oxygen to 5L oxygen via nasal cannula on patient during exertion. Oxygen saturation improved to: 89%. Problem: Patient Care Overview Goal: Plan of Care Review Outcome: Ongoing Waldemar rested well overnight in between care and denied having pain. He is ambulating with minimal assistance while wearing the non-slip socks. He is using the incentive spirometer with encouragement and practices coughing and deep breathing. He is tolerating a regular diet and is free of nausea and vomiting. He is voiding spontaneously and had two bowel movements overnight. He was turned frequently to prevent skin breakdown. Incisions are c/d/I and his old ostomy site is a daily WTD dressing change. He is still requiring 2L NC at this time with rest and ambulation. Pt ambulated in the geiger beginning at 2L/NC, O2 sat-87%, increased oxygen to 3L/NC, O2 sat-91%. Ambulation on room air, O2 sat-84%, replaced 3L/NC, pt recovered to 88% while ambulating. Problem: Patient Care Overview Goal: Plan of Care Review Outcome: Ongoing Waldemar rested well overnight in between care and denied having pain. He is ambulating with minimal assistance while wearing the non-slip socks. He is using the incentive spirometer with encouragement and practices coughing and deep breathing. He is tolerating a regular diet and is free of nausea and vomiting. He is voiding spontaneously and had multiple loose bowel movements overnight. He was turned frequently to prevent skin breakdown. Incisions are c/d/I and his old ostomy site is a once a daily WTD packing. He is currently weaned to 2L NC while sleeping. Pt ambulated on room air, O2 sat 78%, place oxygen 4L/NC, pt recovered to 92% while walking, recovered to 95% on 4L at rest. Patient doing well this shift. O2 sats currently 95% on 6L NC. Denies CP/SOB. Encouraged deep breathing. BP stable. Minimal c/o pain at surgical site managed with scheduled meds and rest. Patient educated to use call light when needing assistance ambulating. Refusing gait belt despite encouragement. RN will continue to monitor. Problem: Patient Care Overview Goal: Plan of Care Review Outcome: Ongoing Goal: Individualization & Mutuality Outcome: Ongoing Goal: Discharge Needs Assessment Outcome: Ongoing Goal: Interdisciplinary Rounds/Family Conf Outcome: Ongoing Blood pressure 161/112, prn hydralazine given at this time. Will continue to monitor. Paged international affairs vice president MD Yahaira Barber [phone] Waldemar Jensen does not have any PRN pain meds. got scheduled Tylenol and gabapentin. pt. asks for PRN med for abd pain at incision at this time. thanks. Alycia COLE [phone] call box wirer MD Hudson made aware of patient's VS this shift and elevated BPs. NNO at this time. Patient resting in bed comfortably respirations even unlabored Denies CP/SOB. RN will continue to monitor O2 sats WNL on 6L NC currently. Denies SOB/CP. PEP at bedside. Encouraged deep breathing. Problem: Breathing Pattern Ineffective (Adult) Goal: Identify Related Risk Factors and Signs and Symptoms Description: Related risk factors and signs and symptoms are identified upon initiation of Human Response Clinical Practice Guideline (CPG) Outcome: Ongoing Goal: Effective Oxygenation/Ventilation Description: Patient will demonstrate the desired outcomes by discharge/transition of care. Outcome: Ongoing 03/27/23 1303 Referral Information Arrived From operating room Final Discharge Planning Discharge Disposition Home Services at Discharge DME Final DME Oxygen (currently requiring oxygen) CM/SW AVS Portion Completed Yes Plan Plan Home once oxygenation improved, having bowel function and toleration of diet adequate Patient/Family In Agreement With Plan yes Transport Request Mode of Transfer Private Vehicle [facility] Discharge Note Patient discussed in medical rounds for discharge to home, unlikely this weekend due to respiratory issues. Ideally, team would like patient off oxygen prior to discharge. Services for Discharge Discussed [facility] services with patient, however he declined. He does live alone but his sister lives next door and nephew can provide assistance as well. Consults with Final Discharge Recommendations Gen Surg (Dr. Maxwell)- follow up made per her request Lines/Tubes/Drains/Wounds/Supplie s Old ostomy site- small packing, per team will not need additional supplies. Bedside RN to send out with kerlix, abd pad and tape. Ventral Hernia- wearing abdominal binder Medications No barriers anticipated in obtaining discharge medications. No prior authorizations anticipated. Reconciliation of medications to be completed by the medical team. Per team, no lovenox at discharge. Durable Medical Equipment Bedside RN to send patient out with wound packing supplies. Currently weaning off oxygen; want to make sure respiratory status is more stable prior to discharge. Choice Was Patient Choice Provided: N/A Transportation [facility] will [facility] by [facility]. Education Discharge education provided by the medical team and updated in the After Visit Summary. Follow Up(s) Any follow up requested by the medical team arranged. Appointments in the After Visit Summary. Future Appointments Provider Department [place] 04/30/2023 12:15 PM Alycia Richardson Division of Colon & Rectal Surgery Arrive at: Arrive to [facility] First Floor Registration MUSE 04/30/2023 2:15 PM Tricia Maxwell General and Gastrointestinal Surgery [facility] Arrive at: Arrive to 1st Floor Lobby Registration Desk [facility] Was Ambulatory PCRM added to the Care Team? Yes- Handoff criteria met Was a handoff made to an Ambulatory PCRM? Yes Referral completed and sent to Claritza Castro [phone]. The PCRM has updated the patient's nurse regarding the final discharge plan. Risk of Readmission: 2 Category Reference: Low: 0% - 5% Medium - Low: 5.1% - 10% Medium - High: 10.1% - 16% High: 16.1% - 100% Readmission Risk Interventions Documented: Yes No other discharge needs have been identified at this time. This plan was developed in collaboration with the patient and caregiver/preferred decision maker. Patient and family are in agreement with final discharge plan. Please refer to AVS and medical record for additional information. Patient instructed to call with questions. PCRM will continue to follow with medical team for any additional discharge planning needs. HERMINIO Gallagher [phone] If any changes to this individualized plan of care during evening and weekend hours and assistance is needed, please page the international affairs vice president PCRM at [phone]. Problem: Nutrition, Imbalanced: Inadequate Oral Intake (Adult) Goal: Identify Related Risk Factors and Signs and Symptoms Description: Related risk factors and signs and symptoms are identified upon initiation of Human Response Clinical Practice Guideline (CPG) Outcome: Ongoing Nutrition Recommendations and Plan of Care: 1. Advance diet as medically able per team 2. Oral Nutrition Supplements: While on CLD, will provide Ensure Clear or Boost Breeze TID (provides 240-250 kcal, 8-9 g pro per serv) Once advanced to FLD/reg diet, Will provide chocolate Ensure Plus BID (provides 350 kcal, 16 g pro per serv) 3. Monitor PO intake, weights, labs, GI function 4. Nutrition to follow Problem: OT - Balance Goal: Balance - Standing - Patient will perform 10+ minutes of functional task in standing with independence and good balance to promote safety and improved balance required for self-care activities. Outcome: Ongoing Problem: OT - Endurance Goal: Endurance Functional Mobility - Patient will complete distance needed for common household mobility with no greater than 1 rest break for improved tolerance to safely complete I/ADL's Outcome: Ongoing Problem: OT - Other Goal: Energy Conservation with ADL's - Patient will independently utilize 2-3 energy conservation/pacing strategies during ADL completion to promote success and safety during daily routine. Outcome: Ongoing international affairs vice president Gricel Veliz made aware of pt. Continued need for oxygen highflow NC 6-7 liters to keep sats WNL. Some dyspnea upon exertion noted after activity. Deep breathing encouraged patient uses spirometer at bedside. Denies CP/SOB. HOB elevated. aware . RN will continue to monitor. BP 183/98 MAP 132 Pulse 99 call box wirer Gricel Veliz MD notified via page. PRN labetalol given as ordered made aware.. Patient asymptomatic S/p digital associate media director VS obtained. BP improved 144/97 MAP 116 HR 89. Paged international affairs vice president [phone] Gricel Veliz [facility] bp 167/102 [id number] pulse 102 after ambulating to bed. asymptomatic. does not meet parameters for PRN labetalol at this time. bp has been running higher but just wanted to make you aware. thanks Alycia [phone] Images from the original note were not included. [facility] Attending Addendum: I saw and examined the patient today. I discussed the patient with the resident team and agree with their history, examination, and medical decision making. In addition: Pain well controlled; denies nausea. Having some shortness of breath/respiratory restriction. Vitals: 03/26/23 1833 BP: (!) 150/95 Pulse: 101 Resp: (!) 27 Temp: SpO2: 90% Abdomen soft, appropriately tender, c/d/I Assessment/Plan: POD#2 after VHR at time of stoma takedown Shortness of breath - Some component of this is the expected respiratory restriction after repair of a large incisional hernia. This may take 2-3 weeks to improve. Continue binder use-doesn't have to be very tight. Will defer to primary team regarding workup for other etiologies. Diet per CRS. Aldo Lee MD Patient with worsened respiratory requirement to 6L this afternoon Appears somewhat uncomfortable due to acid reflux States he is not having any nausea, having BM, passed gas. Abdomen soft, incision CDI with minimal bruising on inferior aspect I did not take down old ostomy site as this was changed by CRS team this AM -Recommend aggressive pulmonary toilet (PEP, scheduled nebs which primary team is doing) -CXR reviewed, read pending, no obvious aspiration, PNA, effusion on my read. Some pulmonary edema present. Will FU read. -Recommend pepcid and protonix for reflux which are bothering patient (already ordered) -If any nausea, can consider backing down diet (Will defer to CRS) -Gen GI will continue to follow patient closely Harry Cruz MD Patient c/o dyspnea upon ambulation to bathroom. Respiration rate 32, expiratory wheezing heard. Oxygen increased to 5L. Respiratory gave treatment. Patient stated helped. Patient resting comfortably in chair, RR 26. Colorectal team updated. Will continue to monitor. 1320-Patient still c/o shortness of breath at rest. Pt increased to 6L o2, RR 28-30. ABG's and EKG ordered per Colorectal service. Patient has met the majority of his post op milestones he ambulated 4 times he passed gas with small BM and has tolerated regular diet. The area that he has strugled is repiratory. He has been unable to wean off his oxygen and even requiring 6 liters during ambulation to maintain his saturation. Patient continues to use his IS up to 1000 and has been coughing, breathing treatments were added and positioning but still requiring oxygen at rest he needs 1 liter to stay above 90%. Pain has been controlled with 5 of oxy 03/25/23 1106 Referral Information Arrived From operating room Readmission Information Was patient readmitted within 30 Days? No Information Source Information Source patient ;review of medical record Information Source Name Waldemar Jensen Information Source Number see demographic sheet Outpatient Providers Outpatient Providers Updated In [facility] Yes Contact Information Molder Offbearer/SW Added to Care Team Yes This Business Process Analyst is Primary Molder Offbearer/SW Yes Molder Offbearer Name Nya Pena Molder Offbearer's Social Work Contact Name Alicia Kelly Stamp Pad Maker's Living Environment Lives With alone (1 story house; has sister that lives next door and nephew close by) Living Arrangements house Provides Primary Care For no one Primary Care Provided By self Support System Immediate family Able to Return to Prior Arrangements yes Functional Status Patient's Functional Status Prior To This Admission? Independent Are There Status Changes This Admission? Yes Changes Observed Since Admission? Physical Concerns With Patient Being Able To Care For Themselves At Discharge? Has Assistance (Friend, Family, Skilled Provider) Who Is Patient's Primary Contact For Discharge Planning, Education And Care For Discharge? Sister and nephew, friends Can Support Person Meet The Care Needs Of The Patient? Yes Employment/Financial Employed? 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 Employment/Financial Concerns no Source Of Income salary/wages;social security Financial Concerns none Insurance Medical Insurance Verified Yes Prescription Coverage Yes Pharmacy updated in [facility] Yes Initial Discharge Planning Home Care Services (BOILER CONTROL ROOM OPERATOR) No Home Therapies (BOILER CONTROL ROOM OPERATOR) None DME (BOILER CONTROL ROOM OPERATOR) None Medical Supplies (BOILER CONTROL ROOM OPERATOR) Ostomy Supplies (was ordering through [employer]) Patient Goal for Discharge Get better Anticipated discharge disposition Home Anticipated Services at Discharge Wound/drain/line/ostomy-supplies; Half-Way Anticipated Changes Related to Illness inability to care for self Current Discharge Risk high risk diagnoses (i.e., CHF, Stroke, DM, chronic pain, abdominal pain, nausea and vomiting);>65 years of age;lives alone Transportation Available car;family or friend will provide Assessment/Concerns to be Addressed Concerns To Be Addressed denies needs/concerns at this time PCRM Initial Assessment Met with patient to complete the initial assessment. Explained role and function of PCRM in multidisciplinary team. Contact number provided for questions. Demographic information reviewed with patient/family and confirmed as correct. Reason for Admission: s/p ex lap, JESSENIA, ileostomy reversal with primary ileorectal anastomosis (Bruno) and ventral hernia repair (Hans) on 03/24/23 Estimated length of stay: 2-3 days Advanced directives Patient does not have Advanced Directives on File Lines/Drains/Tubes Talley- due to CHELO and accurate I&O Old ostomy site- wet to dry wound packing Dermabond over incisions Currently wearing oxygen, hx of COPD/emphysema; attempting to wean. Did not wear oxygen at home prior Initial PCRM Discharge Planning Pt was ordering his ostomy supplies through [employer]. Will check with team about need for ordering wet to dry wound care supplies (pending wound size). Pt was agreeable to DME supplier for this if needed. Shared OT recs for [facility], pt declined. Pt has sister who lives next door available for support. Final plan will be determined closer to discharge, pending therapy and medical team recommendations. Patient/family verbalized understanding and agreement with the plan of care. Patient/family have no questions at this time. PCRM will continue to follow patient with multidisciplinary team for ongoing assessment of needs and for discharge planning. Medical team updated. HERMINIO Gallagher [phone] Problem: PT - General Goals Goal: Standing Endurance/Balance - Patient will perform standing balance tasks for 10 min with independence and without an assistive device while maintaining an RPE of less than 3/10 and maintain SpO2 > 90% to improve endurance and safety with standing tasks. Outcome: Progressing Toward Goal Goal: Ambulation - Patient will ambulate 300 feet with supervision and without an assistive device and maintain SpO2 >90% to improve ability to safely navigate home and community. Outcome: Progressing Toward Goal Problem: PT - Outcome Measure Goals Goal: [facility] - Patient will demonstrate an improvement in AM-PAC Inpatient Mobility Short Form of at least 4.5 points (MDC), in order to demonstrate an improvement in functional mobility. Outcome: Progressing Toward Goal Silke Esquivel PT, DPT [place] License #[id number] Problem: OT - ADLs Goal: Bathing - Patient will perform full body bathing routine with independence while seated/standing for improved ability to complete self-care activities Outcome: Ongoing Problem: OT - Balance Goal: Balance - Standing - Patient will perform 10+ minutes of functional task in standing with independence and good balance to promote safety and improved balance required for self-care activities. Outcome: Ongoing Problem: OT - Endurance Goal: Endurance Functional Mobility - Patient will complete distance needed for common household mobility with no greater than 1 rest break for improved tolerance to safely complete I/ADL's Outcome: Ongoing Problem: OT - Other Goal: Energy Conservation with ADL's - Patient will independently utilize 2-3 energy conservation/pacing strategies during ADL completion to promote success and safety during daily routine. Outcome: Ongoing Surgery Post-Op Check Note Agustin Jensen is a 67 y.o. yr old male, who is now POD#0 s/p exploratory laparotomy, JESSENIA, ileostomy takedown with ileorectal anastomosis (Dr. Richardson) and ventral hernia repair (Dr. Maxwell). There were no complications to the procedure, and the patient tolerated it well. Arrived to the floor in stable condition. Subjective: Resting in bed. Patient reports he is feeling great. Tolerating liquids without nausea. Pain is controlled. Talley in place. Tachycardic on monitor, reports feeling a little anxious in relation to the surgery but otherwise asymptomatic. No questions or concerns at this time. Exam: BP (!) 134/98 (BP Location: Left arm, BP Position: Lying) Pulse 123 Temp 98.6 F (37 C) (Infrared) Resp 19 Ht 1.778 m (5' 10 ) Wt 92.5 kg (204 lb) SpO2 90% BMI 29.27 kg/m Smoking Status Former GEN: NAD, laying comfortably in bed CV: RRR, HDS Pulm: No respiratory distress Abd: Soft, appropriately tender, mildly-distended. Incision clean, dry, and intact with dermabond. Old ostomy site packed with telfa gauze. Abdominal binder in place. Talley in place. Ext: No LE swelling/edema Neuro: No focal deficits Assessment: 67 y.o. yr old male now POD 0 s/p exploratory laparotomy, JESSENIA, ileostomy takedown with ileorectal anastomosis (Dr. Richardson) and ventral hernia repair (Dr. Maxwell). Currently stable on the floor. Plan: - DIET CLEAR LIQUID - Pain control: multimodal - Talley: continue overnight - CTM HR and UOP, may need additional fluid resuscitation - Patient advised to call with any concerns - Will continue to monitor Gricel Veliz MD General Surgery Pager [phone] Patient arrived to unit via cart. Patient oriented to room and provided call light. Pt denied any pain or nausea. Assessment and vitals complete. Patient has placed on continuous pulse oximetry. Educated about Falls Prevention Plan. On admission to [facility], from PACU a dual RN initial assessment of skin condition was performed by Tre Mcdowell RN and Suzi Van RN. Skin Assessment: Skin within defined limits:Yes Joe Score: 20 LDA Added:No Agustin Jensen ([id number]) PRE OPERATIVE DIAGNOSIS History of colon cancer [Z85.038] Ileostomy in place [Z93.2] Ventral hernia without obstruction or gangrene [K43.9] POST OPERATIVE DIAGNOSIS Post-Op Diagnosis Codes: * History of colon cancer [Z85.038] * Ileostomy in place [Z93.2] * Ventral hernia without obstruction or gangrene [K43.9] PROCEDURE PERFORMED REPAIR HERNIA ABDOMINAL INITIAL REDUCIBLE GREATER THAN 10 CM PRIMARY CLOSURE Yes INTRAOPERATIVE FINDINGS Large ventral hernia primarily closed. Hernia sac and excess skin excised prior to skin closure. Ileostomy takedown site immediately lateral to right of midline incision, packed with Telfa gauze. SURGEON Surgeon(s) and Role: Panel 1: * Alycia Richardson MD - Primary Panel 2: * Tricia Maxwell MD - Primary ANESTHESIOLOGIST Anesthesiologist: Yefri Rosa MD; Seun Delgado MD; Juan M Orozco III, MD; Thu Cosme DO ACCOUNT MANAGER SALES REPRESENTATIVE: Tres Pinto APRN-ACCOUNT MANAGER SALES REPRESENTATIVE Hospitality Host: LAQUITA Cooper; LAQUITA Pritchett Local Owner Operator Truck Driver Assisting: Macario Lyles DO SURGICAL STAFF Sql Dba: Danielle Mario RN; Billie Shannon RN; Yolie Matson RN Relief Sql Dba: Beverly Guerra RN Relief Scrub: Mansi Fraire Scrub Person: Blaise Aguilar Resident Assisting: Catherine Pastor MD; Donna Redding MD Fellow: Luana Fortune MD COMPLICATIONS None ESTIMATED BLOOD LOSS Minimal SPECIMENS ID Type Source Tests Collected by Time Destination 1 : Ileostomy Permanent SURG PATH SURG PATH REQUEST Alycia Richardson MD 03/24/2023 1308 Catherine Pastor MD March 24, 2023 5:29 PM Colorectal Surgery Operative Report Date: 03/24/23 Preoperative Diagnosis: Ileostomy present Postoperative Diagnosis: History of ileostomy Procedure: Exploratory laparotomy Lysis of adhesions 45min Ileostomy reversal with primary ileorectal anastomosis On-table fexible endoscopy for evaluation of anastomosis Surgeon: Alycia Richardson MD Personalized Living Manager: Luana Fortune MD (Fellow) Donna Redding MD (R3) Clinical Note: 67 y.o. man with history of obstructing sigmoid colon cancer, prior open total colectomy and end ileostomy. He developed a large ventral hernia at his incision site. After completion of recovery and adjuvant therapy, he presents for ileostomy reversal. Findings: Ileostomy and small bowel healthy Long rectal stump, healthy Large ventral hernia with skin overlying hernia sac Procedure Note: After verification of consent in preop, the patient was taken to the OR and moved to the operating table. Anesthesia w GETA was induced, the patient positioned in low lithotomy with all pressure points padded, and a surgical time out completed. A talley catheter was placed and IV antibiotics administered prior to incision. The abdomen was prepped and draped in the usual sterile fashion. We entered the abdomen via a long midline laparotomy incision, to one side of the hernia sac. We lysed anterior abdominal adhesions, then mobilized the bowel away from the anterior abdominal wall bilaterally, with a combination of sharp and protected electrocautery dissection. The ileostomy was taken down at the mucocutaneous junction using electrocautery and freed from the surrounding subcutaneous tissue with a combination of sharp dissection and protected electrocautery dissection, until it was free from the skin and fascia. The end of the ileum was stapled off to close it with a MARY stapler, then the ileum returned to the abdomen; the old ileostomy bowel was handed off the table for Pathology. The bowel was completely freed and mobile from any intraabdominal adhesions. We lysed adhesions between the rectal stump and pelvic fat, and noted the bowel to be healthy and straight. The anvil of a 28mm EEA stapler was inserted into the ileum through an enterotomy, then the end of the bowel stapled off. The anvil spike was exteriorized at the antimesenteric border then the anvil purse-stringed with 3-0 silk. EEA sizers were inserted transanally to size the rectal stump. The EEA stapler handle was then advanced to the tip of the stump and a stapled side-to-end ileorectal anastomosis created in the standard fashion with return of two healthy rings of tissue. Flexible endoscopy and underwater insufflation demonstrated a healthy circular anastomosis without air leak. One small area of serosal tearing on the anterior surface of the rectum was oversewn with 4 Lembert sutures of 3-0 silk. The entire anastomosis was oversewn in a Lembert fashion with 3-0 silk. The procedure was handed over to the care of Dr. Maxwell and her team for abdominal closure. Cavity search was performed and an instrument and sponge count were correct at the time of team change. Blood Loss: Minimal Complications: None Specimens: ID Type Source Tests Collected by Time Destination 1 : Ileostomy Permanent SURG PATH SURG PATH REQUEST Alycia Richardson MD 03/24/2023 1308 Agustin Mikey ([id number]) PRE OPERATIVE DIAGNOSIS History of colon cancer [Z85.038] Ileostomy in place [Z93.2] Ventral hernia without obstruction or gangrene [K43.9] POST OPERATIVE DIAGNOSIS Post-Op Diagnosis Codes: * History of colon cancer [Z85.038] * Ileostomy in place [Z93.2] * Ventral hernia without obstruction or gangrene [K43.9] Procedure: Exploratory laparotomy JESSENIA Takedown ileostomy Ileorectal anastomosis PRIMARY CLOSURE Yes INTRAOPERATIVE FINDINGS Anastomosis without leak, no twisting, patent on endoscopy SURGEON Surgeon(s) and Role: Panel 1: * Alycia Richardson MD - Primary Panel 2: * Tricia Maxwell MD - Primary ANESTHESIOLOGIST Anesthesiologist: Yefri Rosa MD; Seun Delgado MD; Thu Cosme DO ACCOUNT MANAGER SALES REPRESENTATIVE: Tres Pinto APRN-ACCOUNT MANAGER SALES REPRESENTATIVE Hospitality Host: LAQUITA Pritchett Local Owner Operator Truck Driver Assisting: Macario Lyles DO SURGICAL STAFF Sql Dba: Danielle Mario RN; Billie Shannon RN Relief Sql Dba: Beverly Guerra RN Relief Scrub: Mansi Fraire Scrub Person: Blaise Aguilar Resident Assisting: Catherine Pastor MD; Donna Redding MD Fellow: Luana Fortune MD COMPLICATIONS None ESTIMATED BLOOD LOSS Minimal ID Type Source Tests Collected by Time Destination 1 : Ileostomy Permanent SURG PATH SURG PATH REQUEST Alycia Richardson MD 03/24/2023 1308 Luana oFrtune MD March 24, 2023 2:04 PM [facility] Post-Op Note/Post-Procedure Note Patient: Agustin Jensen : 1955 Sex: male Operation/Procedure Date: 03/24/2023 Surgeon(s) and Role: Panel 1: * Alycia Richardson MD - Primary Panel 2: * Tricia Maxwell MD - Primary Pre-operative Diagnoses: Recurrent ventral hernia Postoperative Diagnoses: Same Procedure performed: 1. Incisional hernia repair using primary closure buttressed by intraperitoneal sublay mesh. 2. Enterolysis. Anesthesia: General Indications: Agustin Jensen is a 67 y.o. year old male who presents with a larger ventral hernia in the setting of an ileostomy. The patient presents for ileostomy reversal and our assistance was requested for abdominal closure. Preoperatively, I discussed in detail the risks, benefits, alternatives, and potential complications. The patient understands and requests to proceed. Operative Findings: Incisional hernia with fascial defect of 25 cm (craniocaudal) x 16 cm (transverse) Technique: The patient was positively identified and was taken to the operating room and placed supine on the operating room table. After successful induction of general endotracheal anesthesia, a time out was performed confirming correct patient and procedure. The arms were tucked and padded. We also confirmed initiation of deep venous thrombosis prophylaxis and wound prophylaxis. A talley catheter and orogastric tube were placed. We took over the case after the ileostomy reversal. We then performed enterolysis, these structures from the anterior abdominal wall. This was done using a combination of sharp dissection and judicious use of electrosurgical current. The midline fascial defect measured 16 cm x 25 cm in total extent by EHS criteria. We confirmed hemostasis within the abdominal cavity. The rectus was very retracted and there was concern that we may not be able to successfully close it meaning he may need a heavyweight bridge. Even if we were able to close the entirety of the incision he would likely need a heavyweight mesh which we would not be able to place in the setting of a stoma reversal. We decided to repair the hernia primarily and buttress it with an intraperitoneal sublay mesh. A piece of 30 cm x 30 cm vicryl mesh was placed as an intraperitoneal sublay and fixated to the anterior abdominal wall using running 0 PDS Halsted suture. We ensured no gaps existed for bowel to intervene between the mesh and the anterior abdominal wall. The fascia was closed with #1 Stratafix in a running fashion. The closure was tested with multiple valsalva maneuvers by anesthesia and appeared intact. Additionally the patient's peak pressures did not change. We irrigated the subcutaneous tissues with saline and confirmed hemostasis. The skin was closed using monocryl. The ileostomy site was packed. The patient tolerated the procedure well. All sponge, needle, and instrument counts were reported correct at the end of the case. I was present for the entire duration of the case. Estimated Blood Loss: * No blood loss amount entered * Specimens: ID Type Source Tests Collected by Time Destination 1 : Ileostomy Permanent SURG PATH SURG PATH REQUEST Alycia Richardson MD 03/24/2023 1308 Implants: Implant Name Type Inv. Item Serial No. Retail Sales Professional Lot No. LRB No. Used Action MESH [id number] FLAT VICRYL KNIT WOVEN SURGICAL HERNIA REPAIR - [id number] MESH [id number] FLAT VICRYL KNIT WOVEN SURGICAL HERNIA REPAIR CirilodJ/ETHICON ENDO [id number] N/A 1 Implanted Drains: None. Complications: * No complications entered in OR log * Condition of the patient: Good, extubated Disposition: PACU Tricia Maxwell MD MS Anesthesia notified of blood sugar 69, pt asymptomatic Block completed Dr Maxwell here to see patient, Block team at beside to start procedure documented in this encounter [facility] 03-31-2023 History of Presen t illness Narrative Agustin Jensen's POC discussed this morning in multidisciplinary rounds. Patient is medically stable for discharge to home today. With new oxygen requirement, 2L at rest, 5L with exertion. PCRM met with patient at the bedside to discuss. Per patient choice, oxygen will be provided by [facility]. Aware that tank will need brought to the bedside and instructed on need to call them once he arrives home to get his home oxygen equipment delivered. Patient interested in pulse oximeter for home. CERTIFIED PROFESSIONAL MIDWIFE provided prescription to local [facility]. PCRM called local pharmacy and spoke with Abdullahi, who stated they received 6 prescriptions, but do not have any insurance information on file. Per Abdullahi, discount cards were able to be applied to his prescriptions (aside from the pulse oximeter, which is $29.99 over the counter), bringing the total (including the pulse oximeter) to $107.78. PCRM met with patient at the bedside to discuss. Patient confirmed he doesn't have prescription drug covered and was agreeable to pay the $107. Pharmacy aware of hospital discharge today. No additional needs identified at this time. Patient declined need for any additional therapy (HHC or outpatient) and also declined need for recommended two wheeled walker. No other DME needs identified. Sandra Napoles to pick patient up this afternoon. RN Devi to provide patient with extra dressing supplies for old ostomy site. Patient reports he has had thorough education and is comfortable doing his dressing changes at home on his own. Please refer to final discharge note completed by Nya Colin, primary PCRM on 03/27/2023 for additional discharge details. PCRM will continue to follow and provide support. Veronika DAVIS, RN, PCR Phone #: [phone] For evening and weekend discharge assistance please page the international affairs vice president PCRM at [phone]. Addendum at 1250: Oxygen approved by insurance. Per jaden Mueller delivered to the bedside. Acute Occupational Therapy Treatment Prior to Admission AM-PAC Score: PRIOR LEVEL AM-PAC Activity Raw Score: 24 Current AM-PAC score(s): CURRENT AM-PAC Activity Raw Score: 21 Based on the above AM-PAC score(s), and OT clinical judgment, discharge destination recommendation is: Home with Outpatient Rehab Services (vs home with home health) Mobility equipment available at home: grab bars ADL equipment available at home: grab bars, shower chair, hand held shower hose Equipment recommendations for discharge: 2 wheeled walker Current therapy frequency recommendation(s) in acute: 3 times a week Activity Recommendations for outside of rehab session: up with supervision 03/31 Precautions and Weightbearing Status: OT Existing Precautions/Restrictions: abdominal, supplemental oxygen Telemetry Patient Safety Communication Prior to Visit: Nursing Subjective: Pt upright in armchair and agreeable to therapy with no complaints of pain this date Pain: General Pain Documentation (Adult, OB, Peds) Presence of Pain: denies pain/discomfort Presence of Pain Score (Auto-calculated): 0 Objective/Observation: Vitals/Vitals Responses to Treatment: Pt with stable vitals throughout session. Pt OOB upon arrival. O2 Device: nasal cannula Flow (L/min): 2 (increased to 5 with activity) Cognition Overall Cognitive Status: Within Functional Limits Arousal/Alertness: Appropriate responses to stimuli Orientation Level: Oriented X4 Following Commands: Follows all commands and directions without difficulty ADL Assessment/Intervention: ADLs: Eating Assistance: Grooming Assistance: Bathing Assistance: UE Dressing Assistance: LE Dressing Assistance: Modified independent LE Dressing Location: seated in chair LE Dressing Intervention/Details: pt stating he is still having difficulty with LB dressing tasks. Pt educated with demonstrations and receiving air traffic control equipment repairer, long handled shoe horn, long handled bath sponge and sock aid. pt with good understanding Toilet Assistance: Extremity Assessments: See OT Evaluation flowsheet for Extremity Measurement updates. Balance: Sitting Balance Static Sitting-Level of Assistance: Independent Dynamic Sitting-Level of Assistance: Independent Standing Balance Static Standing-Level of Assistance: Supervision Dynamic Standing-Level of Assistance: Supervision Skin and Edema: Edema Edema: none noted Mobility Assessment/Intervention: Transfer Assessment/Intervention: Sit to Stand Transfer [place] Level: Sit->Stand: supervision Assistive Device: Sit->Stand: armed chair Skilled Rationale: Cues for increased safety Skilled Intervention/Details: Sit->Stand: x1 from chair Stand to Sit Transfer [place] Level: Stand->Sit: supervision Assistive Device: Stand->Sit: armed chair Skilled Rationale: Cues for increased safety Skilled Intervention/Details: Stand->Sit: x1 to chair Functional Mobility: Functional Mobility [place] Level: Functional Mobility/Gait: supervision Functional Mobility Distance: Distance needed for common household mobility Functional Mobility Deficits: Shortness of breath Functional Mobility Skilled Rationale: Energy conservation, Breathing strategies Skilled Intervention/Details - Functional Mobility/Gait: pt cues on return to home strategies for SOB and use of his home O2 with activity. Outcome Score(s): CURRENT [facility] Daily Activity Inpatient Short Form Putting on/Taking Off Lower Body Clothin - A Little Assistance Bathin - A Little Assistance Toiletin - A Little Assistance Putting on/Taking Off Upper Body Clothin - No Assistance Groomin - No Assistance Eatin - No Assistance CURRENT [facility] Activity Raw Score: 21 CURRENT [facility] Activity Functional Limitation/Modifier: 32.79% Currently Impaired in Daily Activity - CJ Interventions: Assessment & Plan: Pt demonstrates progress towards goals of standing endurance and energy conservation . Pt would continue to benefit from OT services due to decreased strength and endurance to reduce the risk of falls and injury and return to prior level of (I). Patient Instruction/Education this session: Min to occasional verbal cues for technique to increase (I) and safety during ADL's, functional transfers and functional mobility Energy conservation and work simplification techniques education with Saving Energy and Making Work Simple handout with good understanding. Adaptive equipment training for activities of daily living tasks a Plan for next session: Continue OT services per OT plan of care, continuing to advance to set goals with focus on increased (I) with activities of daily living tasks and energy conservation Acute OT Goals Plan of Care by GRETEL Suárez at 03/31/2023 10:04 AM Version 1 of 1 Problem: OT - Balance Goal: Balance - Standing - Patient will perform 10+ minutes of functional task in standing with independence and good balance to promote safety and improved balance required for self-care activities. Outcome: Ongoing Problem: OT - Other Goal: Energy Conservation with ADL's - Patient will independently utilize 2-3 energy conservation/pacing strategies during ADL completion to promote success and safety during daily routine. Outcome: Ongoing OT treatment consisted of the following to work and progress towards the above goal(s): OT Evaluation and Treatment Time Self Care/Home Management (ADLs) Time Entry: 24 Treating Therapist: GRETEL Suárez Additional Details: OT Co-Eval/Treatment Information Co-evaluation/co-treatment performed?: No simultaneous skilled care performed PPE used during patient interaction: facemask, gloves Patient location at end of session: chair Alarms on at end of session: RN aware, none altered Needs in reach. Time In: 1004 Time Out: 1028 Total Visit Time: 24 minutes Total Treatment Time (skilled, billable minutes): 24 minutes Upon discontinuation of Acute Care Occupational Therapy Services or patient discharge from the hospital this note represents the current Occupational Therapy Discharge Summary. Colorectal Surgery Daily Progress Note Attending: Alycia Richardson MD Length of Stay: 7 Surgery: Exploratory laparotomy, JESSENIA, Ileostomy reversal with primary ileorectal anastomosis (Bruno) ventral hernia repair (Hans) 03/24/23 Team: Anabela (Solomon Richardson Traugott) Pager: Shahid [phone] Subjective/Interval events: no acute events. Continues to have oxygen requirements. Breathing becoming slightly easier. Eating is going ok but slow. Having bowel movements and passing stools. Denies incontinence. O:BP 131/89 (BP Location: Right arm, BP Position: Lying) Pulse 88 Temp 97.9 F (36.6 C) (Oral) Resp 16 Ht 1.778 m (5' 10 ) Wt 91.4 kg (201 lb 6.4 oz) SpO2 92% BMI 28.90 kg/m Smoking Status Former 03/30 0700 - 03/31 0659 In: 757 [P.O.:757] Out: 300 [Urine:300] PE: General: NAD, lying in bed Pulm: Respirations shallow breathing, little labored Abd: Soft, non distended, approprietly tender, midline incision cd/I with liquid adhesive, mild ecchymosis to superior portion of incision, just right of midline old stoma site packed with guaze, ABD replaced Labs: WBC/Hgb/Hct/Plts: 7.57/12.2/36.6/249 (03/31 341) Bun/Creat/Cl/CO2/Glucose: 20/0.87/102/27/109 (03/31 341) Na/K+/Phos/Mg/Ca: 138/3.6/3.4/1.8/8.2 (03/31 341) A/P: Agustin Jensen is a 67 y.o. 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 I expect that this will improve with oxygen therapy. This patient is mobile within the home. Patient's oxygen saturation at rest on room air is 88% Pt oxygen saturation at rest on room air is: 88% Placed 2L oxygen via nasal cannula on patient at rest. Oxygen saturation improved to: 92% Pt oxygen saturation with exertion on 2L of oxygen dropped to: 87% Increased oxygen to 5L oxygen via nasal cannula on patient during exertion. Oxygen saturation improved to: 89%. CHELO (Resolved) Baseline appears to be ~ .99 Acute pain Continue multimodal pain regimen. Ibuprofen stopped due to CHELO Oxycodone prn At moderate risk for DVT Daily SQH. Ambulate daily, SCD's. Health Education Plan of care discussed with patient. Answered questions, agrees with plan of care Complexity. Any conditions listed below are present on admission unless otherwise specified. . Emphysema -denies being on any inhalers, prn albuterol. Not a current smoker. Seen on CT Chest. RT consulted, continue breathing treatments. Diet: DIET REGULAR Oral Supplement; No Carbonated Beverages DVT prophylaxis: Lovenox Talley: No Lines: PIV Code status: Full Level of care: Med Surg Planned Discharge date: dc today pending oxygen set-up Dispo- inpatient Patient seen with colorectal team, plan of care discussed, and they are in agreement. VIKRAM Cordon 03/30/23 9666 Assessment Type ## Assessment-Evaluation re-evaluation RT Intervention Assessment-Evaluation Assessment Type RT eval program Reason for Assessment RT Protocol Scoring Tool and Orders for Airway Clearance Therapy Plan of Care: Based on the patient's score of 5, pep therapy will be ordered with a frequency of kenneth. Patient will be reassessed every 24 hours to determine score and if any changes to therapy and/or frequency are required. Asad Henriquez RCP 03/30/2023 4:24 PM 0 1 2 3 4 Points Pulmonary Status no smoking/pulmonary history smoking - < 1pk/day pulmonary disease (stable) and/or Smoking - ? 1pk/day or > 15 PY mild exacerbation moderate/severe exacerbation 2 Surgery (this admission) no surgery surgery of extremities lower abdominal thoracic or upper abdominal thoracic w/ history of pulmonary disease 2 Chest x-ray (within 24 hours of assessment) clear/not indicated/not available chronic changes or x-ray pending infiltrates, atelectasis, or pleural effusions infiltrates in more than 1 lobe infiltrate + atelectasis and/or plueral effusion 0 Respiratory Pattern eupneic increased dyspnea w/ exertion use of accessory muscles, prolonged expiration severe SOB, use of accessory muscles 0 RR 8-20 RR 21-25 RR 26-30 RR > 30 RR > 40 Mental Status alert, oriented, and cooperative alert and following commands but disoriented confused and not following commands obtunded/lethargic comatose 0 Breath Sounds clear diminished unilaterally Diminished bilaterally crackles in bases wheezing and/or rhonchi 0 Cough Effectiveness strong, spontaneous, non-productive strong, productive weak, productive weak, non-productive w/ rhonchi no spontaneous cough and/or requires suction 0 Level of Activity ambulatory ambulatory w/ assistance not ambulatory, transfer w/ assist bed rest, able to position self bed rest, unable to position self 0 O2 for sats ? 88% no oxygen 1 - 3 Lpm 4 - 6 Lpm 35-50% > 50% 1 TOTAL 5 Points Therapy Frequency 0 - 7 PEP DC or KENNETH 8 - 16 VIBRATORY PEP TID 17 - 24 METANEB, VEST, IPV, PDP Q6 25 - 32 METANEB, VEST, IPV, PDP Q4 >32 NOTIFY TEAM NOTIFY TEAM 03/30/23 5433 Assessment Type ## Assessment-Evaluation re-evaluation RT Intervention Assessment-Evaluation Assessment Type RT eval program Reason for Assessment RT Protocol Vitals, Reports, and Results Pulse (Heart Rate) 93 RT Acuity Assessment Tool RT Protocol Assessment 24 hour reassessment mMRC Dyspnea Score 0 RT Modified Cristal Score 1 Combined Dyspnea Score 1 RT Acuity Level 4 Surgery Progress Note S: No acute events. Looks well. Oxygen requirement down to 2L NC overnight. Patient curious about being discharged with an inhaler. . Otherwise afvss. Tolerating a regular diet. O: Blood pressure 133/86, pulse 91, temperature 97.8 F (36.6 C), temperature source Oral, resp. rate 18, height 1.778 m (5' 10 ), weight 92.5 kg (204 lb), SpO2 92 %. I/O last 3 completed shifts: In: 1150 [P.O.:1150] Out: 1110 [Urine:1110] PE: General: Awake, alert, in NAD. Resting comfortably in bed. Cardiovascular: Hemodynamically stable. Regular rate as evaluated by palpation of pulse. Pulmonary: Normal respiratory effort. Equal chest rise. Abdomen: Soft, appropriately tender, non-distended, surgical incision is c/d/I with minimal drainage on abdominal binder. Extremities: Warm and well perfused with gross sensation and motor intact Labs: WBC/Hgb/Hct/Plts: 9.06/13.8/42.7/284 (03/30 215) Na/K+/Phos/Mg/Ca: 138/3.9/3.2/2.0/9.0 (03/30 215) Bun/Creat/Cl/CO2/Glucose: 22/0.84/101/26/89 (03/30 215) A/P: 67 yo M with hx of CRC s/p TAC EI now s/p ex lap, ileostomy takedown and ileorectal anastomosis (Bruno) and primary closure of large ventral hernia (Hans) on 03/24. -Respiratory issues likely a restrictive process from the hernia repair -Continue aggressive pulmonary toilet, IS, walking around -Wean O2 as able -Will reach out to respiratory about possible inhaler -OK to keep abdominal binder loose for comfort -Regular diet -Would consider starting to work on home oxygen as patient may need at discharge if unable to wean off John Thompson MD Surgery Resident, PGY-1 03/30/23, 8:54 AM Pager # [phone] Colorectal Surgery Daily Progress Note Attending: Alycia Richardson MD Length of Stay: 6 Surgery: Exploratory laparotomy, JESSENIA, Ileostomy reversal with primary ileorectal anastomosis (Bruno) ventral hernia repair (Hans) 03/24/23 Team: Anabela (Solomon Richardson Traugott) Pager: Shahid [phone] Subjective/Interval events: On 2L from 6L O2, still having difficulty breathing but states it is improving, Denies n/v, tolerated regular diet, +BM, +FLATUS. States he is still having very loose BM and multiple. O:BP 133/86 (BP Location: Right arm, BP Position: Sitting) Pulse 91 Temp 97.8 F (36.6 C) (Oral) Resp 18 Ht 1.778 m (5' 10 ) Wt 92.5 kg (204 lb) SpO2 92% BMI 29.27 kg/m Smoking Status Former 03/29 0700 - 03/30 0659 In: 1150 [P.O.:1150] Out: 1110 [Urine:1110] PE: General: NAD, lying in bed Pulm: Respirations shallow breathing, little labored Abd: Soft, non distended, approprietly tender, midline incision cd/I with liquid adhesive, mild ecchymosis to superior portion of incision, just right of midline old stoma site packed with guaze, ABD replaced Labs: WBC/Hgb/Hct/Plts: 9.06/13.8/42.7/284 (03/30 215) Bun/Creat/Cl/CO2/Glucose: 22/0.84/101/26/89 (03/30 215) Na/K+/Phos/Mg/Ca: 138/3.9/3.2/2.0/9.0 (03/30 215) A/P: Agustin Jensen is a 67 y.o. 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 Ibuprofen stopped due to CHELO Oxycodone prn At moderate risk for DVT Daily SQH. Ambulate daily, SCD's. Health Education Plan of care discussed with patient. Answered questions, agrees with plan of care Complexity. Any conditions listed below are present on admission unless otherwise specified. . Emphysema -denies being on any inhalers, prn albuterol. Not a current smoker. Seen on CT Chest. RT consulted, continue breathing treatments. Diet: DIET REGULAR Oral Supplement; No Carbonated Beverages DVT prophylaxis: Lovenox Talley: No Lines: PIV Code status: Full Level of care: Med Surg Planned Discharge date: pending surgical recovery Dispo- inpatient Patient seen with colorectal team, plan of care discussed, and they are in agreement. Yahaira Barber MD Scoring Tool and Orders for Airway Clearance Therapy Plan of Care: Based on the patient's score of 11, PEP therapy will be ordered with a frequency of TID. Patient will be reassessed every 24 hours to determine score and if any changes to therapy and/or frequency are required. Raul Gillis RCP 03/29/2023 3:00 PM 0 1 2 3 4 Points Pulmonary Status no smoking/pulmonary history smoking - < 1pk/day pulmonary disease (stable) and/or Smoking - ? 1pk/day or > 15 PY mild exacerbation moderate/severe exacerbation 2 Surgery (this admission) no surgery surgery of extremities lower abdominal thoracic or upper abdominal thoracic w/ history of pulmonary disease 2 Chest x-ray (within 24 hours of assessment) clear/not indicated/not available chronic changes or x-ray pending infiltrates, atelectasis, or pleural effusions infiltrates in more than 1 lobe infiltrate + atelectasis and/or plueral effusion 2 Respiratory Pattern eupneic increased dyspnea w/ exertion use of accessory muscles, prolonged expiration severe SOB, use of accessory muscles 1 RR 8-20 RR 21-25 RR 26-30 RR > 30 RR > 40 Mental Status alert, oriented, and cooperative alert and following commands but disoriented confused and not following commands obtunded/lethargic comatose 0 Breath Sounds clear diminished unilaterally Diminished bilaterally crackles in bases wheezing and/or rhonchi 2 Cough Effectiveness strong, spontaneous, non-productive strong, productive weak, productive weak, non-productive w/ rhonchi no spontaneous cough and/or requires suction 0 Level of Activity ambulatory ambulatory w/ assistance not ambulatory, transfer w/ assist bed rest, able to position self bed rest, unable to position self 0 O2 for sats ? 88% no oxygen 1 - 3 Lpm 4 - 6 Lpm 35-50% > 50% 2 TOTAL 11 Points Therapy Frequency 0 - 7 PEP DC or KENNETH 8 - 16 VIBRATORY PEP TID 17 - 24 METANEB, VEST, IPV, PDP Q6 25 - 32 METANEB, VEST, IPV, PDP Q4 >32 NOTIFY TEAM NOTIFY TEAM Current Orders: Duoneb Q4 Tx Indication: Per Respiratory Therapy Directed Asthma and COPD Inhaler Protocol: acuity level 4 Respiratory Plan of Care: Patient has been on Q4 for 24hrs. Patient is diminished bilaterally, but not SOB unless exerting himself. Change patient to Duonebs Q6 with PEP TID. Patient states he's been doing PEP on his own more often then TID and will continue to do so. The patient's respiratory plan of care was updated by Raul Gillis RCP 03/29/2023 3:03 PM Surgery Progress Note S: No acute events. Looks well. Subjectively less SOB, still on 6L. Otherwise afvss Having some heart burn No N/V Tolerating some PO but hoping to eat more today Having bms Labs stable O: Blood pressure 133/89, pulse 96, temperature 97.7 F (36.5 C), resp. rate 20, height 1.778 m (5' 10 ), weight 92.5 kg (204 lb), SpO2 91 %. I/O last 3 completed shifts: In: 745.5 [P.O.:685; IV Piggyback:60.5] Out: 1375 [Urine:1375] PE: Gen: Does have some sob with talking Lungs: slightly decreased WOB, on 6L NC Abd: soft, appropriately tender, ND, incision is c/d/I. Ext: warm, no edema Labs: WBC/Hgb/Hct/Plts: 9.40/12.9/40.2/254 (03/29 139) Na/K+/Phos/Mg/Ca: 139/3.9/3.7/2.1/9.0 (03/29 139) Bun/Creat/Cl/CO2/Glucose: 24/0.92/103/25/93 (03/29 139) A/P: 67 yo M with hx of CRC s/p TAC EI now s/p ex lap, ileostomy takedown and ileorectal anastomosis (Bruno) and primary closure of large ventral hernia (Hans) on 03/24. -Respiratory issues likely a restrictive process from the hernia repair -Continue aggressive pulmonary toilet, IS, walking around -Wean O2 as able -OK to keep abdominal binder loose for comfort -Regular diet -Would consider starting to work on home oxygen as patient may need at discharge if unable to wean off Harry Cruz MD Associated attestation - Tania Carter MD - 03/29/2023 9:56 AM EST I saw and independently examined Agustin Jensen today. I discussed my findings and the therapeutic plan with the resident. I agree with the resident's history, physical examination, and medical decisions as outlined. Recovering appropriately without complaint with exception of continued oxygen requirement though subjectively less sob today. Planning to discharge with O2 for continued weaning at home. Tania Carter MD Minimally Invasive Surgery/ Bariatric Fellow Clinical Instructor, General Surgery Colorectal Surgery Daily Progress Note Attending: Alycia Richardson MD Length of Stay: 5 Surgery: Exploratory laparotomy, JESSENIA, Ileostomy reversal with primary ileorectal anastomosis (Bruno) ventral hernia repair (Hans) 03/24/23 Team: Anabela (Solomon Richardson Traugott) Pager: Shahid [phone] Subjective/Interval events: On 6L from 8L O2, still having difficulty breathing, Denies n/v, tolerated regular diet, +BM, +FLATUS. States he has multiple BM and states its loose. Encouraged protein intake. O:BP (!) 145/95 (BP Location: Left arm, BP Position: Lying) Pulse 88 Temp 98.2 F (36.8 C) (Oral) Resp 20 Ht 1.778 m (5' 10 ) Wt 92.5 kg (204 lb) SpO2 94% BMI 29.27 kg/m Smoking Status Former 03/28 0700 - 03/29 0659 In: 745.5 [P.O.:685] Out: 1175 [Urine:1175] PE: General: NAD, lying in bed Pulm: Respirations shallow breathing, little labored Abd: Soft, non distended, approprietly tender, midline incision cd/I with liquid adhesive, mild ecchymosis to superior portion of incision, just right of midline old stoma site packed with guaze, ABD replaced Labs: WBC/Hgb/Hct/Plts: 9.40/12.9/40.2/254 (03/29 139) Bun/Creat/Cl/CO2/Glucose: 24/0.92/103/25/93 (03/29 139) Na/K+/Phos/Mg/Ca: 139/3.9/3.7/2.1/9.0 (03/29 139) A/P: Agustin Jensen is a 67 y.o. 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 Ibuprofen stopped due to CHELO Oxycodone prn At moderate risk for DVT Daily SQH. Ambulate daily, SCD's. Health Education Plan of care discussed with patient. Answered questions, agrees with plan of care Complexity. Any conditions listed below are present on admission unless otherwise specified. . Emphysema -denies being on any inhalers, prn albuterol. Not a current smoker. Seen on CT Chest. RT consulted, continue breathing treatments. Diet: DIET REGULAR Oral Supplement; No Carbonated Beverages DVT prophylaxis: Lovenox Talley: No Lines: PIV Code status: Full Level of care: Med Surg Planned Discharge date: pending surgical recovery Dispo- inpatient Patient seen with colorectal team, plan of care discussed, and they are in agreement. Yahaira Barber MD Colorectal Surgery Daily Progress Note Attending: Alycia Richardson MD Length of Stay: 4 Surgery: Exploratory laparotomy, JESSENIA, Ileostomy reversal with primary ileorectal anastomosis (Bruno) ventral hernia repair (Hans) 03/24/23 Team: Anabela (Solomon Richardson Traugott) Pager: Hcpof [phone] Subjective/Interval events: On 8L O2, reports lying in best is when he feels the most SOB. The breathing treatments are helpful. Denies nausea or vomiting, states has bad pain when coughing. +BM, +FLATUS O:BP (!) 148/102 (BP Location: Right arm, BP Position: Lying) Pulse 92 Temp 97.6 F (36.4 C) (Oral) Resp 20 Ht 1.778 m (5' 10 ) Wt 92.5 kg (204 lb) SpO2 91% BMI 29.27 kg/m Smoking Status Former 03/27 0700 - 03/28 0659 In: 711 [P.O.:540] Out: 300 [Urine:300] PE: General: NAD, lying in bed Pulm: Respirations shallow breathing, little labored Abd: Soft, non distended, approprietly tender, midline incision cd/I with liquid adhesive, mild ecchymosis to superior portion of incision, just right of midline old stoma site packed with guaze, ABD replaced Labs: WBC/Hgb/Hct/Plts: 11.79/12.5/39.5/228 (01/13 0155) Bun/Creat/Cl/CO2/Glucose: 20/0.83/101/28/98 (03/28 154) Na/K+/Phos/Mg/Ca: 139/4.2/2.5/2.1/9.2 (03/28 154) A/P: Agustin Jensen is a 67 y.o. 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 Ibuprofen stopped due to CHELO Oxycodone prn At moderate risk for DVT Daily SQH. Ambulate daily, SCD's. Health Education Plan of care discussed with patient. Answered questions, agrees with plan of care Complexity. Any conditions listed below are present on admission unless otherwise specified. . Emphysema -denies being on any inhalers, prn albuterol. Not a current smoker. Seen on CT Chest. RT consulted, continue breathing treatments. Diet: DIET REGULAR Oral Supplement; No Carbonated Beverages DVT prophylaxis: Lovenox Talley: No Lines: PIV Code status: Full Level of care: Med Surg Planned Discharge date: pending surgical recovery Dispo- inpatient Patient seen with colorectal team, plan of care discussed, and they are in agreement. Yahaira Barber MD Surgery Progress Note S: No acute events. Still on 6 L. Went up to 11L yesterday after walking but now down again to 6L. VSS Labs improving, WBC down to 11.79 from 14.76 and hb 12.5 stable CXR yesterday with no changes O: Blood pressure (!) 148/102, pulse 92, temperature 97.6 F (36.4 C), temperature source Oral, resp. rate 20, height 1.778 m (5' 10 ), weight 92.5 kg (204 lb), SpO2 91 %. I/O last 3 completed shifts: In: 711 [P.O.:540; IV Piggyback:171] Out: 300 [Urine:300] PE: Gen: Does have some sob with talking Lungs: slightly increased WOB, on 6L NC Abd: soft, appropriately tender, ND, incision is c/d/I. Ext: warm, no edema Labs: WBC/Hgb/Hct/Plts: 11.79/12.5/39.5/228 (03/28 154) Na/K+/Phos/Mg/Ca: 139/4.2/2.5/2.1/9.2 (03/28 154) Bun/Creat/Cl/CO2/Glucose: 20/0.83/101/28/98 (03/28 154) A/P: 67 yo M with hx of CRC s/p TAC EI now s/p ex lap, ileostomy takedown and ileorectal anastomosis (Bruno) and primary closure of large ventral hernia (Hans) on 03/24. -Respiratory issues likely a restrictive process from the hernia repair -Continue aggressive pulmonary toilet, IS, walking around -Wean O2 as able -Loosen abdominal binder today and place fresh binder.There is some dried drainage on the inferior aspect of binder, have asked nursing to place a new binder so we can monitor -Regular diet -Would consider starting to work on home oxygen as patient may need at discharge if unable to wean off Harry Cruz MD Associated attestation - Tania Carter MD - 03/28/2023 3:17 PM EST I saw and independently examined Agustin Jensen today. I discussed my findings and the therapeutic plan with the resident. I agree with the resident's history, physical examination, and medical decisions as outlined. Continued stable oxygen req, otherwise without complaints. Cont care per primary team. 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 right of midline old stoma site packed with guaze, ABD replaced Labs: WBC/Hgb/Hct/Plts: 14.76/12.4/37.7/206 (03/27 316) Bun/Creat/Cl/CO2/Glucose: 17/0.79/103/26/113 (03/27 316) Na/K+/Phos/Mg/Ca: 137/4.4/2.3/1.9/8.8 (03/27 316) A/P: Agustin Jensen is a 67 y.o. 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 Ibuprofen stopped due to CHELO Oxycodone prn At moderate risk for DVT Daily SQH. Ambulate daily, SCD's. Health Education Plan of care discussed with patient. Answered questions, agrees with plan of care Complexity. Any conditions listed below are present on admission unless otherwise specified. . Emphysema -denies being on any inhalers, prn albuterol. Not a current smoker. Seen on CT Chest. RT consulted, continue breathing treatments. Diet: DIET CLEAR LIQUID Oral Supplement; No Carbonated Beverages DVT prophylaxis: Lovenox Talley: No Lines: PIV Code status: Full Level of care: Med Surg Planned Discharge date: pending surgical recovery Dispo- inpatient Patient seen with colorectal team, plan of care discussed, and they are in agreement. VIKRAM Villar SW attempted twice to meet with patient to complete psychosocial assessment, distress screening, and offer to obtain/complete advanced care planning documents; however, patient was found to be working with RENEA Blair and the second time in the restroom at this time. Environmental services staff also in room. SW will revisit patient as able and remain available, as needed. PARRISH Erickson, MANAGER METROLOGY COL//ACS Stamp Pad Maker For evening (after 4:30 PM - 8 AM) and weekend assistance, please call international affairs vice president St[employer] Pad Maker at [phone] or page [phone]. Gen/GI Surgery Progress Note S: Increased oxygen requirements overnight. Tolerating DIET REGULAR No Carbonated Beverages; Oral Supplement without nausea, emesis. Ambulating and voiding without issue. Patient resting in chair appears uncomfortable. O: Blood pressure (!) 169/103, pulse 97, temperature 97.7 F (36.5 C), temperature source Oral, resp. rate (!) 26, height 1.778 m (5' 10 ), weight 92.5 kg (204 lb), SpO2 95 %. I/O last 3 completed shifts: In: 3086.1 [P.O.:1620; I.V.:1466.1] Out: 1150 [Urine:1150] Physical Exam: Physical Exam: General: Comfortable, Not in acute distress HEENT: Normocephalic, atraumatic. EOM and vision grossly intact. No icterus, Mucous membranes are moist. Cardiovascular: Warm and well perfused Pulmonary: No labored breathing or accessory muscle use. Abdominal: Soft, Non-Distended, Non-tender to palpation in all 4 quadrants. No involuntary guarding or rebound tenderness. Midline incision C/D/I, non-erythematous, closed with dermabond Extremities: No peripheral edema, or evidence of rash, wound, or bruising Psychologic: Affect congruent to stated mood. Behavior appropriate. Labs: Lab Results Component Value Date SODIUM 136 03/26/2023 POTASSIUM 4.5 03/26/2023 CHLORIDE 102 03/26/2023 CO2 25 03/26/2023 BUN 24 03/26/2023 CREATSERUM 1.06 03/26/2023 GLUCOSE 129 (H) 03/26/2023 Lab Results Component Value Date WBC 13.48 (H) 03/26/2023 HGB 13.3 (L) 03/26/2023 HCT 40.5 03/26/2023 PLATELET 205 03/26/2023 MCV 93.8 03/26/2023 Lab Results Component Value Date PTT 25.9 03/24/2023 PT 12.7 03/24/2023 INR 1.0 03/24/2023 Lab Results Component Value Date ALT 24 09/19/2022 AST 22 09/19/2022 ALKPHOS 44 09/19/2022 BILITOTAL 0.6 09/19/2022 BILIDIRECT 0.1 08/05/2017 Imaging: No orders to display A/P: gAustin Jensen is a 67 y.o. male who is 2 Days Post-Op following Procedure(s) (LRB): takedown enterostomy with resection and anastomosis laparoscopic to be scheduled as combined case with Dr. Tricia Maxwell open ventral hernia repair bilateral TAR (N/A) REPAIR HERNIA ABDOMINAL INITIAL REDUCIBLE GREATER THAN 10 CM LAPAROSCOPIC (N/A) FLAP MUSCLE/MYOCUTANEOUS/FASCIOCUTANEO US TRUNK (N/A). He is recovering well post-operatively. Aggressive pulmonary toilet Recommend CXR due respiratory status General Surgery will continue to follow Complexity. .Acute Kidney Injury 03/25- Cr 2.05, BUN 31 Any conditions listed below are present on admission unless otherwise specified. . Ernie Tee MD General Surgery PGY1 Pager [phone] Colorectal Surgery Daily Progress Note Attending: Alycia Richardson MD Length of Stay: 2 Surgery: Exploratory laparotomy, JESSENIA, Ileostomy reversal with primary ileorectal anastomosis (Bruno) ventral hernia repair (Hans) 03/24/23 Team: Anabela (Solomon Richardson Traugott) Pager: Shahid [phone] Subjective/Interval events: Reports having a rough day yesterday due to trouble breathing. Remains on 4L currently. No pain. No nausea, but having some reflux. Passing a little flatus and had a small BM this AM. O:BP (!) 180/102 (BP Location: Right arm, BP Position: Sitting) Pulse 105 Temp 98 F (36.7 C) (Oral) Resp 20 Ht 1.778 m (5' 10 ) Wt 92.5 kg (204 lb) SpO2 95% BMI 29.27 kg/m Smoking Status Former 03/25 0700 - 03/26 0659 In: 3086.1 [P.O.:1620; I.V.:1466.1] Out: 1150 [Urine:1150] PE: General: NAD, lying in bed Pulm: Respirations easy and non labored Abd: soft, nd, appropretly tender, midline incision cd/I with liquid adhesive, mild ecchymosis to superior incision, just right of midline old stoma site packed with guaze, ABD replaced Labs: WBC/Hgb/Hct/Plts: 13.48/13.3/40.5/205 (03/26 247) Bun/Creat/Cl/CO2/Glucose: 24/1.06/102/25/129 (03/26 247) Na/K+/Phos/Mg/Ca: 136/4.5/3.2/1.9/8.6 (03/26 247) A/P: Agustin Jensen is a 67 y.o. 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 Ibuprofen stopped due to CHELO Oxycodone prn At moderate risk for DVT Daily SQH. Ambulate daily, SCD's. Health Education Plan of care discussed with patient. Answered questions, agrees with plan of care Complexity. Any conditions listed below are present on admission unless otherwise specified. . Emphysema -denies being on any inhalers, prn albuterol. Not a current smoker. Seen on CT Chest Diet: DIET REGULAR No Carbonated Beverages; Oral Supplement DVT prophylaxis: SQH, will switch to lovenox tomorrow if creatinine still down Talley: yes Lines: PIV Code status: Full Level of care: Med Surg Planned Discharge date: pending surgical recovery Dispo- inpatient Patient seen with colorectal team, plan of care discussed, and they are in agreement. VIKRAM Villar Colorectal Surgery Daily Progress Note Attending: Alycia Richardson MD Length of Stay: 1 Surgery: Exploratory laparotomy, JESSENIA, Ileostomy reversal with primary ileorectal anastomosis (Bruno) ventral hernia repair (Hans) 03/24/23 Team: Anabela (Solomon Richardson Traugott) Pager: [phone] Subjective/Interval events: Tachycardic with increased oxygen needs briefly when arriving from PACU and changing to inpatient bed. Tachycardia improved this morning, sitting in the chair. On 2L nc. Wheezing. No bowel function, Urine improving. Afebrile. O:BP 163/89 (BP Location: Right arm, BP Position: Sitting) Pulse 93 Temp 97.5 F (36.4 C) (Oral) Resp 16 Ht 1.778 m (5' 10 ) Wt 92.5 kg (204 lb) SpO2 94% BMI 29.27 kg/m Smoking Status Former 03/24 0700 - 03/25 0659 In: 3418.9 [I.V.:3418.9] Out: 1025 [Urine:1025] PE: General: NAD, lying in bed Pulm: Respirations easy and non labored Abd: soft, nd, appropretly tender, midline incision cd/I with liquid adhesive, mild ecchymosis to superior incision, just right of midline odl stoma site packed with guaze, ABD in place : talley in place with yellow urine Labs: WBC/Hgb/Hct/Plts: 14.70/14.4/43.3/232 (03/25 557) Bun/Creat/Cl/CO2/Glucose: 31/2.05/106/18/144 (03/25 557) Na/K+/Phos/Mg/Ca: 137/5.2/4.6/1.7/7.5 (03/25 310-03/25 557) A/P: Agustin Jensen is a 67 y.o. 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 Ibuprofen stopped due to CHELO Oxycodone prn At moderate risk for DVT Daily SQH. Ambulate daily, SCD's. Health Education Plan of care discussed with patient. Answered questions, agrees with plan of care Complexity. Any conditions listed below are present on admission unless otherwise specified. . Emphysema -denies being on any inhalers, prn albuterol. Not a current smoker. Seen on CT Chest Diet: DIET REGULAR No Carbonated Beverages; Oral Supplement DVT prophylaxis: SQH Talley: yes Lines: PIV Code status: Full Level of care: Med Surg Planned Discharge date: pending surgical recovery Dispo- inpatient Patient seen with colorectal team, plan of care discussed, and they are in agreement. VIKRAM Cordon Acute Physical Therapy Evaluation Prior to Admission [facility] score(s): Current AM-PAC score(s): CURRENT AM-PAC Mobility Raw Score: 19 Based on the above AM-PAC score(s) and PT clinical judgment, patient is a good candidate for discharge to Home with Outpatient Rehab Services (consider pelvic floor physical therapy referral) Barriers to discharge home: None Mobility equipment available at home: grab bars ADL equipment available at home: grab bars, shower chair, hand held shower hose Equipment needed for discharge: none Current therapy frequency recommendation in acute: Therapy Frequency: 3 times a week Activity Recommendations for outside of rehab session: 03/25: x1 assist with gait belt Precautions and Weightbearing Status: Existing Precautions/Restrictions: fall, supplemental oxygen Urinary catheter, Telemetry Patient Safety Communication Prior to Visit: Nursing Subjective: Pt up in chair on arrival, reports he recently walked the length of the hallway with nursing staff. Pt agreeable to PT/OT evaluation. Pain: General Pain Documentation (Adult, OB, Peds) Presence of Pain: complains of pain/discomfort Pain Location: abdomen DVPRS (Defense and Veterans Pain Rating Scale) DVPRS: Rest: 2- mild pain DVPRS: Activity: 2- mild pain Home Setting Residence: House (1 story) Lives With: alone (friends and nephew able to assist PRN upon discharge) First floor setup: bedroom, walk-in shower Number of stairs to enter home: 0 Number of stairs in home: 0 Mobility Equipment Available: grab bars ADL Equipment Available: grab bars, shower chair, hand held shower hose Previous Level of Function Prior level ADL Overview: Independent with all ADLs Bed Mobility/Transfers: independent Ambulation Skills: independent Assistive Device: none used Level of Ambulation: community Prior Level of Function Details: Patient denies hx of recent falls Objective/Observation: Vitals/Vitals Responses to Treatment: desaturation with ambulation O2 sats On 1L via NC on arrival - 92% SpO2 After 75' ambulation and seated in chair - 70% SpO2 on 1L via NC, cyanosis of lips, increased breathing rate and effort of breathing Recovered on 4L via NC for ~1 min - 93% SpO2 Returned to 2L via NC - 93% SpO2 O2 Device: nasal cannula Flow (L/min): 1 Cognition Overall Cognitive Status: Within Functional Limits Arousal/Alertness: Appropriate responses to stimuli Orientation Level: Oriented X4 Following Commands: Follows all commands and directions without difficulty Vision Screen Currently wearing corrective lenses: Yes Visual Impairments Observed?: No Speech Speech: no gross deficits noted Successful Methods (Communication Strategies): verbal speech Hearing Hearing: decreased left Extremity Assessments: See OT evaluation for UE assessment RLE Assessment RLE Assessment: Within Functional Limits LLE Assessment LLE Assessment: Within Functional Limits Sensation Overall Sensation: Intact Sensation Comments: denies n/t Mobility Assessment: not assessed this visit, pt in chair on arrival Balance: Sitting Balance Static Sitting-Level of Assistance: Independent Dynamic Sitting-Level of Assistance: Independent Sitting Balance Skilled Intervention/Details: Pt sitting on armed chair and was able to sit on toilet with no UE support and no LOB. Standing Balance Static Standing-Level of Assistance: Supervision Dynamic Standing-Level of Assistance: Stand-by assist Standing-Balance Support: Gait belt (occasional use of UE on IV pole) Skilled Rationale: Cues for increased safety, Verbal cues Transfer Assessment: Sit to Stand Transfer [place] Level: Sit->Stand: supervision Assistive Device: Sit->Stand: gait belt Skilled Rationale: Verbal cues Skilled Intervention/Details: Sit->Stand: x1 from armed chair, x1 from toilet, no LOB noted Stand to Sit Transfer [place] Level: Stand->Sit: supervision Assistive Device: Stand->Sit: gait belt Skilled Rationale: Verbal cues, Controlled descent for sitting Skilled Intervention/Details: Stand->Sit: x1 armed chair, x1 toilet, use of UE support to control descent, no LOB noted Gait/Functional Mobility: Gait Assessment [place] Level: Gait: stand-by assist Assistive Device: Gait: gait belt (intermittent use of IV pole with RUE) Ambulation Distance (Feet): 75 Gait Deviations Identified: wide base of support, lateral trunk flexion, increased postural sway, decreased gait speed Gait Skilled Rationale: verbal Skilled Intervention/Details - Gait: Pt with waddle-like gait pattern, with no LOB and occasional use of IV pole for support. Pt requested to end the ambulation trial due to previously walking. During gait pt demo'd cyanosis of lips and audible increased effort of breathing, pt cued for pursed lip breathing. Wheelchair Assessment Patient currently uses wheelchair?: No Stairs: Stairs Assessment [place] Level: Stair Negotiation: not tested (pt does not have stairs at home) CURRENT AM-PAC Basic Mobility Inpatient Short Form Turning over in bed: 4 - No Assistance Sitting/standing from chair: 3 - A Little Assistance Moving from lying on back to sittin - A Little Assistance Moving to and from bed to chair: 3 - A Little Assistance Walk in hospital room: 3 - A Little Assistance Climbing 3-5 steps with a railin - A Little Assistance CURRENT AM-PAC Mobility Raw Score: 19 CURRENT [facility] Mobility Functional Limitation/Modifier: 41.77% Currently Impaired in Basic Mobility - CK Interventions: Assessment & Plan: Patient was admitted for Pt is a 67 y/o M with history of sigmoid cancer with subtotal colectomy with ileostomy and is now POD#1 from exploratory laparoscopy, JESSENIA, ileostomy takedown with ileorectal anastomosis and ventral hernia repair. and seen for therapy evaluation related to Discharge recommendations. Exam findings include impairments in: Gait/Locomotion, Aerobic capacity/endurance, Ventilation and respiration/gas exchange. These impairments contribute to functional limitations including Decreased ambulation distance/endurance, Increased fall risk. Pt adhered to abdominal precautions and has safe functional mobility, however is significantly limited by endurance and had significant drop in O2 saturation (low 70's) following 75' of ambulation. Pt will continue to benefit from skilled physical therapy services to improve activity tolerance, endurance and breathing strategies. Current clinical presentation is Evolving - changing/inconsistent clinical characteristics (Moderate). Patient history factors impacting Plan Of Care include history of sigmoid cancer. Patient will benefit from skilled physical therapy to address these impairments, functional limitations, and participation restrictions and has good rehab potential to achieve therapy goals. Planned Therapy Interventions: endurance, functional activity tolerance, other (see comments), balance training, gait training (breathing strategies) Patient Instruction/Education this session: energy conservation, benefits of physical therapy for pelvic floor dysfunction in outpatient setting Plan for next session: endurance training, breathing strategies for activity Acute PT Goals Plan of Care by Silke Michelle PT at 03/25/2023 8:22 AM Version 1 of 1 Problem: PT - General Goals Goal: Standing Endurance/Balance - Patient will perform standing balance tasks for 10 min with independence and without an assistive device while maintaining an RPE of less than 3/10 and maintain SpO2 > 90% to improve endurance and safety with standing tasks. Outcome: Progressing Toward Goal Goal: Ambulation - Patient will ambulate 300 feet with supervision and without an assistive device and maintain SpO2 >90% to improve ability to safely navigate home and community. Outcome: Progressing Toward Goal Problem: PT - Outcome Measure Goals Goal: [facility] - Patient will demonstrate an improvement in AM-[facility] Inpatient Mobility Short Form of at least 4.5 points (MDC), in order to demonstrate an improvement in functional mobility. Outcome: Progressing Toward Goal Silke Esquivel PT, DPT [place] License #[id number] PT treatment consisted of the following to progress towards the above goal(s): Evaluating Therapist: Silke Michelle PT Additional Details: PT Co-Eval/Treatment Information Co-evaluation/co-treatment performed?: Yes, simultaneous billable skilled care was necessary due to medical complexity and functional deficits Other discipline: OT Rationale for need to co-eval/treat: (unknown activity tolerance) Co-treatment goal focus: mobility, endurance, transfer Evaluation Complexity Components History: Moderate (1-2 personal factors and/or comorbidities) Body Systems Review: Moderate (Addressing a total of 3 or more elements) Clinical Presentation: Evolving - changing/inconsistent clinical characteristics (Moderate) Clinical Decision Making: Moderate Time In: 805 Time Out: 821 Total Visit Time: 16 minutes Total Treatment Time (skilled, billable minutes): 16 minutes Assisted by during session: Millie Doran OT PPE used during patient interaction: gloves, facemask Patient location at end of session: chair Alarms on at end of session: none, RN aware Needs in reach. Upon discontinuation of Acute Care Physical Therapy Services or patient discharge from the hospital this note represents the current Physical Therapy Discharge Summary. Silke Esquivel PT, DPT [place] License #[id number] Patient seen and examined at bedside. No acute events overnight. Pain well-controlled with current regimen. Patient denies headache, SOB, nausea, emesis, pruritus, and paresthesias. Vitals: 03/24/23 1946 03/24/23 2325 03/25/23 0300 03/25/23 0728 BP: (!) 139/98 130/59 163/89 Pulse: 123 117 99 93 Resp: 16 18 16 Temp: 98 degrees F (36.7 degrees C) 98 degrees F (36.7 degrees C) 97.5 degrees F (36.4 degrees C) TempSrc: Oral Oral Oral SpO2: 90% 90% 95% 94% Weight: Height: Physical Examination: GEN: Reclining in bed, NAD CHEST: Equal chest rise bilaterally, no labored breathing HEART: RRR EXTREMITIES: No edema SKIN: Intact, no rashes NEURO: Alert and oriented, no gross focal deficit Assessment and Plan: 67 y.o. male s/p Procedure(s) (LRB): takedown enterostomy with resection and anastomosis laparoscopic to be scheduled as combined case with Dr. Tricia Maxwell open ventral hernia repair bilateral TAR (N/A) REPAIR HERNIA ABDOMINAL INITIAL REDUCIBLE GREATER THAN 10 CM LAPAROSCOPIC (N/A) FLAP MUSCLE/MYOCUTANEOUS/FASCIOCUTANEO US TRUNK (N/A) on 03/24 with juliano-op ITM. Patient doing well with minimal adverse effects. APS will sign off at this time. Please call [phone] or page [phone] with any questions or concerns. Macario Ulloa, DO Anesthesia PGY1 [facility] Acute Pain Service Attending Addendum I personally examined and evaluated the patient. I reviewed the case and medical record with the resident. Based on the ROS, History, and Exam, I agree with the medical decision making. Mario Clement M.D. Acute Occupational Therapy Evaluation Prior to Admission AM-PAC Score: PRIOR LEVEL AM-PAC Activity Raw Score: 24 Current AM-PAC score(s): CURRENT AM-PAC Activity Raw Score: 22 Based on the above AM-PAC score(s) and OT clinical judgment, discharge destination recommendation is: Home with Outpatient Rehab Services Mobility equipment available at home: grab bars ADL equipment available at home: grab bars, shower chair, hand held shower hose Equipment recommendations for discharge: 2 wheeled walker Current therapy frequency recommendation(s) in acute: 3 times a week Activity Recommendations for outside of rehab session: 03/25: up with 1 person Precautions and Weightbearing Status: OT Existing Precautions/Restrictions: abdominal Urinary catheter, Telemetry Patient Safety Communication Prior to Visit: Nursing Subjective: Patient sitting in armed chair, agreeable to session Pain: General Pain Documentation (Adult, OB, Peds) Presence of Pain: complains of pain/discomfort Pain Location: abdomen DVPRS (Defense and Veterans Pain Rating Scale) DVPRS: Rest: 2- mild pain DVPRS: Activity: 2- mild pain Home Setting Residence: House (1 story) Lives With: alone (friends and nephew able to assist PRN upon discharge) First floor setup: bedroom, walk-in shower Number of stairs to enter home: 0 Number of stairs in home: 0 Mobility Equipment Available: grab bars ADL Equipment Available: grab bars, shower chair, hand held shower hose Previous Level of Function Prior level ADL Overview: Independent with all ADLs Bed Mobility/Transfers: independent Ambulation Skills: independent Assistive Device: none used Level of Ambulation: community Prior Level of Function Details: Patient denies hx of recent falls IADL History IADLs: independent Primary Language: Syrian Objective/Observation: Vitals/Vitals Responses to Treatment: Patient sating at 92% upon entrance on 2L. Patient ambulating into hallway desating to 70's - increased patient to 4L for ~1 minute seated recovery back to 93% on 2L. O2 Device: nasal cannula Flow (L/min): 2 Vision Screen Currently wearing corrective lenses: Yes Visual Impairments Observed?: No Speech Speech: no gross deficits noted Successful Methods (Communication Strategies): verbal speech Hearing Hearing: decreased left Cognition Overall Cognitive Status: Within Functional Limits Arousal/Alertness: Appropriate responses to stimuli Orientation Level: Oriented X4 Following Commands: Follows all commands and directions without difficulty Safety Judgment: Good awareness of safety precautions Awareness of Errors: Good awareness of errors made Deficits: Fully aware of deficits Attention Span: Appears intact Memory: Appears intact Problem Solving: Able to problem solve independently ADLs: ADL Assessment: Assessed All ADLs ADL Anticipated Performance (ADLs not directly observed this session): Eating, Grooming, Bathing, UE Dressing, Toileting Eating Assistance: Independent Grooming Assistance: Supervision Grooming Location: standing at sink Grooming Intervention/Details: Able to complete independently in sitting - decreased endurance and activitiy tolerance in standing Bathing Assistance: Supervision UE Dressing Assistance: Independent LE Dressing Assistance: Modified independent LE Dressing Location: seated in chair LE Dressing Skilled Rationale (Verbal/Tactile/Visual/Demonstrat ion): Facilitate positioning, Setup, Supervision LE Dressing Intervention/Details: Instructed patient on use of figure 4 method to gissell/doff socks - patient able to complete seated in chair unsupported Toilet Assistance: Supervision Extremity Assessments: RUE Assessment RUE Assessment: Within Functional Limits LUE Assessment LUE Assessment: Within Functional Limits Balance: Sitting Balance Static Sitting-Level of Assistance: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 to follow patient with multidisciplinary team for ongoing assessment of needs and for discharge planning. Medical team updated. HERMINIO Gallagher [phone] [facility] 03-25-2023 Plan of care note Problem: PT - General Goals Goal: Standing Endurance/Balance - Patient will perform standing balance tasks for 10 min with independence and without an assistive device while maintaining an RPE of less than 3/10 and maintain SpO2 > 90% to improve endurance and safety with standing tasks. Outcome: Progressing Toward Goal Goal: Ambulation - Patient will ambulate 300 feet with supervision and without an assistive device and maintain SpO2 >90% to improve ability to safely navigate home and community. Outcome: Progressing Toward Goal Problem: PT - Outcome Measure Goals Goal: [facility] - Patient will demonstrate an improvement in AM-PAC Inpatient Mobility Short Form of at least 4.5 points (MDC), in order to demonstrate an improvement in functional mobility. Outcome: Progressing Toward Goal Silke Esquivel PT, DPT [place] License #[id number] [facility] 03-25-2023 Plan of care note Problem: OT - ADLs Goal: Bathing - Patient will perform full body bathing routine with independence while seated/standing for improved ability to complete self-care activities Outcome: Ongoing Problem: OT - Balance Goal: Balance - Standing - Patient will perform 10+ minutes of functional task in standing with independence and good balance to promote safety and improved balance required for self-care activities. Outcome: Ongoing Problem: OT - Endurance Goal: Endurance Functional Mobility - Patient will complete distance needed for common household mobility with no greater than 1 rest break for improved tolerance to safely complete I/ADL's Outcome: Ongoing Problem: OT - Other Goal: Energy Conservation with ADL's - Patient will independently utilize 2-3 energy conservation/pacing strategies during ADL completion to promote success and safety during daily routine. Outcome: Ongoing [facility] 03-24-2023 Plan of care note Surgery Post-Op Check Note Agustin Jensen is a 67 y.o. yr old male, who is now POD#0 s/p exploratory laparotomy, JESSENIA, ileostomy takedown with ileorectal anastomosis (Dr. Richardson) and ventral hernia repair (Dr. Maxwell). There were no complications to the procedure, and the patient tolerated it well. Arrived to the floor in stable condition. Subjective: Resting in bed. Patient reports he is feeling great. Tolerating liquids without nausea. Pain is controlled. Talley in place. Tachycardic on monitor, reports feeling a little anxious in relation to the surgery but otherwise asymptomatic. No questions or concerns at this time. Exam: BP (!) 134/98 (BP Location: Left arm, BP Position: Lying) Pulse 123 Temp 98.6 F (37 C) (Infrared) Resp 19 Ht 1.778 m (5' 10 ) Wt 92.5 kg (204 lb) SpO2 90% BMI 29.27 kg/m Smoking Status Former GEN: NAD, laying comfortably in bed CV: RRR, HDS Pulm: No respiratory distress Abd: Soft, appropriately tender, mildly-distended. Incision clean, dry, and intact with dermabond. Old ostomy site packed with telfa gauze. Abdominal binder in place. Talley in place. Ext: No LE swelling/edema Neuro: No focal deficits Assessment: 67 y.o. yr old male now POD 0 s/p exploratory laparotomy, JESSENIA, ileostomy takedown with ileorectal anastomosis (Dr. Richardson) and ventral hernia repair (Dr. Maxwell). Currently stable on the floor. Plan: - DIET CLEAR LIQUID - Pain control: multimodal - Talley: continue overnight - CTM HR and UOP, may need additional fluid resuscitation - Patient advised to call with any concerns - Will continue to monitor Gricel Veliz MD General Surgery Pager [phone] [facility] Work Phone: 03-24-2023 Nurse Note Patient arrived to unit via cart. Patient oriented to room and provided call light. Pt denied any pain or nausea. Assessment and vitals complete. Patient has placed on continuous pulse oximetry. Educated about Falls Prevention Plan. On admission to [facility], from PACU a dual RN initial assessment of skin condition was performed by Tre Mcdowell RN and Suzi Van RN. Skin Assessment: Skin within defined limits:Yes Joe Score: 20 LDA Added:No [facility] 03-24-2023 Surgery Postoperative evaluation and management note Agustin Jensen ([id number]) PRE OPERATIVE DIAGNOSIS History of colon cancer [Z85.038] Ileostomy in place [Z93.2] Ventral hernia without obstruction or gangrene [K43.9] POST OPERATIVE DIAGNOSIS Post-Op Diagnosis Codes: * History of colon cancer [Z85.038] * Ileostomy in place [Z93.2] * Ventral hernia without obstruction or gangrene [K43.9] PROCEDURE PERFORMED REPAIR HERNIA ABDOMINAL INITIAL REDUCIBLE GREATER THAN 10 CM PRIMARY CLOSURE Yes INTRAOPERATIVE FINDINGS Large ventral hernia primarily closed. Hernia sac and excess skin excised prior to skin closure. Ileostomy takedown site immediately lateral to right of midline incision, packed with Telfa gauze. SURGEON Surgeon(s) and Role: Panel 1: * Alycia Richardson MD - Primary Panel 2: * Tricia Maxwell MD - Primary ANESTHESIOLOGIST Anesthesiologist: Yefri Rosa MD; Seun Delgado MD; Juan M Orozco III, MD; Thu Cosme DO ACCOUNT MANAGER SALES REPRESENTATIVE: Tres Pinto APRN-ACCOUNT MANAGER SALES REPRESENTATIVE Hospitality Host: LAQUITA Cooper; LAQUITA Pritchett Local Owner Operator Truck Driver Assisting: Macario Lyles DO SURGICAL STAFF Sql Dba: Danielle Mario RN; Billie Shannon RN; Yolie Matson RN Relief Sql Dba: Beverly Guerra RN Relief Scrub: Mansi Fraire Scrub Person: Blaise Aguilar Resident Assisting: Catherine Pastor MD; Donna Redding MD Fellow: Luana Fortune MD COMPLICATIONS None ESTIMATED BLOOD LOSS Minimal SPECIMENS ID Type Source Tests Collected by Time Destination 1 : Ileostomy Permanent SURG PATH SURG PATH REQUEST Alycia Richardson MD 03/24/2023 1308 Catherine Pastor MD March 24, 2023 5:29 PM [facility] Work Phone: 03-24-2023 Nurse Surgical operation note Handoff report given to HAMMERER TAB. Pt transported to PACU by anesthesia and group president. Pt's talley will remain in place per attending's orders. Family updated via [employer] messaging. [facility] 03-24-2023 Nurse Note Handoff report given to HAMMERER TAB. Pt transported to PACU by anesthesia and group president. Pt's talley will remain in place per attending's orders. Family updated via [employer] messaging. documented in this encounter [facility] 03-24-2023 Surgery Postoperative evaluation and management note Colorectal Surgery Operative Report Date: 03/24/23 Preoperative Diagnosis: Ileostomy present Postoperative Diagnosis: History of ileostomy Procedure: Exploratory laparotomy Lysis of adhesions 45min Ileostomy reversal with primary ileorectal anastomosis On-table fexible endoscopy for evaluation of anastomosis Surgeon: Alycia Richardson MD Personalized Living Manager: Luana Fortune MD (Fellow) Donna Redding MD (R3) Clinical Note: 67 y.o. man with history of obstructing sigmoid colon cancer, prior open total colectomy and end ileostomy. He developed a large ventral hernia at his incision site. After completion of recovery and adjuvant therapy, he presents for ileostomy reversal. Findings: Ileostomy and small bowel healthy Long rectal stump, healthy Large ventral hernia with skin overlying hernia sac Procedure Note: After verification of consent in preop, the patient was taken to the OR and moved to the operating table. Anesthesia w GETA was induced, the patient positioned in low lithotomy with all pressure points padded, and a surgical time out completed. A talley catheter was placed and IV antibiotics administered prior to incision. The abdomen was prepped and draped in the usual sterile fashion. We entered the abdomen via a long midline laparotomy incision, to one side of the hernia sac. We lysed anterior abdominal adhesions, then mobilized the bowel away from the anterior abdominal wall bilaterally, with a combination of sharp and protected electrocautery dissection. The ileostomy was taken down at the mucocutaneous junction using electrocautery and freed from the surrounding subcutaneous tissue with a combination of sharp dissection and protected electrocautery dissection, until it was free from the skin and fascia. The end of the ileum was stapled off to close it with a MARY stapler, then the ileum returned to the abdomen; the old ileostomy bowel was handed off the table for Pathology. The bowel was completely freed and mobile from any intraabdominal adhesions. We lysed adhesions between the rectal stump and pelvic fat, and noted the bowel to be healthy and straight. The anvil of a 28mm EEA stapler was inserted into the ileum through an enterotomy, then the end of the bowel stapled off. The anvil spike was exteriorized at the antimesenteric border then the anvil purse-stringed with 3-0 silk. EEA sizers were inserted transanally to size the rectal stump. The EEA stapler handle was then advanced to the tip of the stump and a stapled side-to-end ileorectal anastomosis created in the standard fashion with return of two healthy rings of tissue. Flexible endoscopy and underwater insufflation demonstrated a healthy circular anastomosis without air leak. One small area of serosal tearing on the anterior surface of the rectum was oversewn with 4 Lembert sutures of 3-0 silk. The entire anastomosis was oversewn in a Lembert fashion with 3-0 silk. The procedure was handed over to the care of Dr. Maxwell and her team for abdominal closure. Cavity search was performed and an instrument and sponge count were correct at the time of team change. Blood Loss: Minimal Complications: None Specimens: ID Type Source Tests Collected by Time Destination 1 : Ileostomy Permanent SURG PATH SURG PATH REQUEST Alycia Richardson MD 03/24/2023 1308 [facility] Work Phone: 03-24-2023 Surgery Postoperative evaluation and management note Agustin Jensen ([id number]) PRE OPERATIVE DIAGNOSIS History of colon cancer [Z85.038] Ileostomy in place [Z93.2] Ventral hernia without obstruction or gangrene [K43.9] POST OPERATIVE DIAGNOSIS Post-Op Diagnosis Codes: * History of colon cancer [Z85.038] * Ileostomy in place [Z93.2] * Ventral hernia without obstruction or gangrene [K43.9] Procedure: Exploratory laparotomy JESSENIA Takedown ileostomy Ileorectal anastomosis PRIMARY CLOSURE Yes INTRAOPERATIVE FINDINGS Anastomosis without leak, no twisting, patent on endoscopy SURGEON Surgeon(s) and Role: Panel 1: * Alycia Richardson MD - Primary Panel 2: * Tricia Maxwell MD - Primary ANESTHESIOLOGIST Anesthesiologist: Yefri Rosa MD; Seun Delgado MD; Thu Cosme DO ACCOUNT MANAGER SALES REPRESENTATIVE: Tres Pinto APRN-ACCOUNT MANAGER SALES REPRESENTATIVE Hospitality Host: LAQUITA Pritchett Local Owner Operator Truck Driver Assisting: Macario Lyles DO SURGICAL STAFF Sql Dba: Danielle Mario RN; Billie Shannon RN Relief Sql Dba: Beverly Guerra RN Relief Scrub: Mansi Fraire Scrub Person: Blaise Aguilar Resident Assisting: Catherine Pastor MD; Donna Redding MD Fellow: Luana Fortune MD COMPLICATIONS None ESTIMATED BLOOD LOSS Minimal ID Type Source Tests Collected by Time Destination 1 : Ileostomy Permanent SURG PATH SURG PATH REQUEST Alycia Richardson MD 03/24/2023 1308 Luana Fortune MD March 24, 2023 2:04 PM [facility] 03-24-2023 Surgery Postoperative evaluation and management note [facility] Post-Op Note/Post-Procedure Note Patient: Agustin Jensen : 1955 Sex: male Operation/Procedure Date: 03/24/2023 Surgeon(s) and Role: Panel 1: * Alycia Richardson MD - Primary Panel 2: * Tricia Maxwell MD - Primary Pre-operative Diagnoses: Recurrent ventral hernia Postoperative Diagnoses: Same Procedure performed: 1. Incisional hernia repair using primary closure buttressed by intraperitoneal sublay mesh. 2. Enterolysis. Anesthesia: General Indications: Agustin Jensen is a 67 y.o. year old male who presents with a larger ventral hernia in the setting of an ileostomy. The patient presents for ileostomy reversal and our assistance was requested for abdominal closure. Preoperatively, I discussed in detail the risks, benefits, alternatives, and potential complications. The patient understands and requests to proceed. Operative Findings: Incisional hernia with fascial defect of 25 cm (craniocaudal) x 16 cm (transverse) Technique: The patient was positively identified and was taken to the operating room and placed supine on the operating room table. After successful induction of general endotracheal anesthesia, a time out was performed confirming correct patient and procedure. The arms were tucked and padded. We also confirmed initiation of deep venous thrombosis prophylaxis and wound prophylaxis. A talley catheter and orogastric tube were placed. We took over the case after the ileostomy reversal. We then performed enterolysis, these structures from the anterior abdominal wall. This was done using a combination of sharp dissection and judicious use of electrosurgical current. The midline fascial defect measured 16 cm x 25 cm in total extent by EHS criteria. We confirmed hemostasis within the abdominal cavity. The rectus was very retracted and there was concern that we may not be able to successfully close it meaning he may need a heavyweight bridge. Even if we were able to close the entirety of the incision he would likely need a heavyweight mesh which we would not be able to place in the setting of a stoma reversal. We decided to repair the hernia primarily and buttress it with an intraperitoneal sublay mesh. A piece of 30 cm x 30 cm vicryl mesh was placed as an intraperitoneal sublay and fixated to the anterior abdominal wall using running 0 PDS Halsted suture. We ensured no gaps existed for bowel to intervene between the mesh and the anterior abdominal wall. The fascia was closed with #1 Stratafix in a running fashion. The closure was tested with multiple valsalva maneuvers by anesthesia and appeared intact. Additionally the patient's peak pressures did not change. We irrigated the subcutaneous tissues with saline and confirmed hemostasis. The skin was closed using monocryl. The ileostomy site was packed. The patient tolerated the procedure well. All sponge, needle, and instrument counts were reported correct at the end of the case. I was present for the entire duration of the case. Estimated Blood Loss: * No blood loss amount entered * Specimens: ID Type Source Tests Collected by Time Destination 1 : Ileostomy Permanent SURG PATH SURG PATH REQUEST Alycia Richardson MD 03/24/2023 [id number] Implants: Implant Name Type Inv. Item Serial No. Retail Sales Professional Lot No. LRB No. Used Action MESH [id number] FLAT VICRYL KNIT WOVEN SURGICAL HERNIA REPAIR - [id number] MESH [id number] FLAT VICRYL KNIT WOVEN SURGICAL HERNIA REPAIR Niraj/ETHICON ENDO [id number] N/A 1 Implanted Drains: None. Complications: * No complications entered in OR log * Condition of the patient: Good, extubated Disposition: PACU Tricia Maxwell MD MS [facility] Work Phone: 03-24-2023 Hospital Discharg e instructions Nya Pena RN - 03/24/2023 12:38 PM EST Images from the original note were not included. COLORECTAL ADDITIONAL CONTACTS For Concerns During Weekend or Evening Hours: -If you have questions or concerns call and ask the fill plant operator to page the group president international affairs vice president. Reminder: Verious messaging goes unmonitored during evenings and weekends. Any concerns or questions during this time, please call using instructions above. Clinic Office Main Number: [phone] Molder Offbearer: Nya Pena ([facility]) SW: Alicia Boudreaux ([facility]) ENTEROSTOMAL THERAPY RN + OSTOMY Clinic+ IMPORTANT: Automated Post Discharge Call Patient Information As part of your care, we will call you at the primary number we have on file, the day after you are discharged at 9:30 a.m. to check on you. Please expect a two-minute automated telephone call from the hospital. This call will come from [phone]. If you are unable to answer or do not receive the automated call, please call [phone] to complete this important evaluation. By answering the phone evaluation, a [facility] nurse will be notified if you have any questions or concerns and call you back. If you have an immediate medical need call your doctor s office, or if you have a medical emergency call [phone]. Marlene Kellogg APRN-BRAND MARKETING COORDINATOR - 03/24/2023 12:36 PM EST Pain Medication A prescription for pain medicine may be sent home with you. Do not drive while taking prescription pain medicine. Eat when taking pain medicines to avoid nausea. When your pain decreases switch to over the counter acetaminophen, like Tylenol. Follow the dose as label directs. YOU WILL NEED TO BUY A PULSE OXIMETER AT YOUR PHARMACY TO SE AT HOME.INSURANCE DOES NOT COVER NING Barr RN - 03/24/2023 12:36 PM EST Activity No Driving for two weeks. No Driving while on pain medications. No lifting over 10 pounds for 6 weeks. No pushing, pulling or straining of abdominal muscles for 6 weeks. Activity as tolerated. Walking is encouraged however no strenuous exercise. You may shower. Do not take a tub bath, go swimming, or use a hot tub until instructed to do so. NING Barr RN - 03/24/2023 12:38 PM EST For the next 6 weeks follow the below diet: Low Fiber Diet A diet low in fiber can help keep your stomach and bowels from being irritated. This diet provides foods that are non-irritating and easily digested. If carefully planned, this diet can provide you with most nutrients you need to be healthy. However, over a long period of time, you may find it hard to eat enough fruits and vegetables. Your diet may also be too low in calcium. Talk to your doctor or dietitian about taking a multivitamin or liquid nutritional supplement. Bread Choose breads without seeds or nuts. Foods allowed: Breads, rolls, pancakes, waffles, and crackers made with enriched, refined white flour Soda crackers [place] Toasts Foods to avoid: Bread containing bran or coarse whole grain Rolls, pancakes, waffles, and crackers made with whole grains Cereals, Pasta, Grains, and Potatoes Choose grain foods with less than 2 grams of dietary fiber per serving. Foods allowed: Refined cooked cereal, such as Cream of Rice, Cream of Wheat, grits, strained oatmeal, Malt-O-Meal Dry cereal, such as cornflakes, puffed rice, Rice Krispies, Honey Smacks, Special K White flour White potatoes, without skin, prepared any way, except fried Mashed sweet potatoes, without skin White rice White pasta Foods to avoid: Whole grain or bran cereal, such as shredded wheat, All Bran, Fiber One, Nutri-Grain, and granola Popcorn Fried potatoes or other substitutes not listed as allowed Brown and wild rice Potato skins Whole wheat pasta products Desserts / Sweets Foods allowed: Timoteo food and sponge cakes Plain cakes with simple frosting Plain cookies Ice cream, sherbet Fruit Whips Gelatin desserts Puddings Custard Sugar Syrup Honey Jelly Molasses Hard candy Foods to avoid: Rich pastries Cakes and puddings Desserts, which contain nuts, coconut, or fruits that are unapproved All fruit not listed as allowed Jams, preserves, and marmalade Candy with nuts, raisins, or fruits are not allowed Vegetables Foods allowed: Well cooked vegetables Vegetables without skin or seeds Pureed vegetables Vegetable juices Foods to avoid: All raw vegetables, including lettuce Cooked spinach or greens Fruits and Juices Foods allowed: Cooked fruits without skin or seeds Applesauce Pears, peaches Peeled apricots [place]nora Joy cherries Ripe banana Ripe avocado Fruit juice without pulp Pureed fruits Foods to avoid: Dried fruit Fruit skin and seeds Pineapple juice Meat and Other Protein Foods Foods allowed: Tender beef, lopez, veal, pork Poultry, fish Eggs prepared any way except fried Smooth nut butters (peanut, almond, sunflower seed, etc.) Foods to avoid: Pickled, spiced, smoked meat Shellfish Fried meats, fish, or eggs Tough meats or meats with gristle Sausage Nuts and seeds Beans, peas and lentils Cheese and Milk Products If you are lactose intolerant, avoid milk and foods made with milk. Foods allowed: Cottage cheese Cream cheese Any cheese that has no dried fruits and nuts Yogurt with active cultures Ice cream Note: Include all of these in milk allowance Foods to avoid: Cheese with dried fruits and nuts Yogurt or ice cream with berries, nuts or dried fruits Fats When possible, choose healthier oils like olive or canola oil. Foods allowed: Avocado Butter Cream Margarine Mild salad dressing Vegetable oils Foods to avoid: None Soups Foods allowed: Broth and strained soups made with allowed ingredients Foods to avoid: All other soups Beverages Most people need 8 to 10 cups of fluid each day. If you are lactose intolerant, avoid milk and foods made with milk. Foods allowed: Cow, soy, rice, and almond milk and milk products Choose low fat or fat free milks Coffee Decaffeinated coffee Tea [place] Carbonated beverages Fruit juice (except prune juice) Foods to avoid: All other beverages Miscellaneous Foods allowed: Salt used in moderation Mild spices Gravy Cream sauces Foods to avoid: Rich, highly spiced, or seasoned foods and sauces Fried foods Pickles Olives Relishes 1999 - September 08, 2019, [facility]. This handout is for informational purposes only. Talk with your doctor or healthcare team if you have any questions about your care. For more health information, call the [employer] for Health Information at [phone] or email: [email or web address]. Ruth Barr RN - 03/24/2023 12:38 PM EST For Concerns During Weekend or Evening Hours: -If you have questions or concerns call and ask the fill plant operator to have the general surgery chief resident paged. Reminder: Verious messaging goes unmonitored during evenings and weekends. Any concerns or questions during this time, please call using instructions above. Clinic Office Main Number: [phone] NOTIFY PHYSICIAN: SYMPTOMS WOUND INFECTION - Increase in pain in or around wound - Change in the amount of drainage - Change in the color of drainage - Change in the odor of drainage - Warmth in the tissues around the wound - Red streaks on the skin near the wound - Fever (temperature greater than 101 degrees F) - Incision separates or opens up UNRELIEVED PAIN + - Increased or unrelieved pain NAUSEA/VOMITING + - Nausea and vomiting that continues for more than 24 hours - Not able to keep medicine down - Not able to keep fluids down SYMPTOMS OF DVT + DVT = Deep Vein Thrombus, or Blood Clot -Any Tender, Swollen, or Reddened Areas from Your Groin to Your Heels -Numbness or Tingling In Groin or Calf -The Skin on Your Leg Looks Pale or Blue or It Feels Cold To Touch -Numbness or Tingling In Groin or Calf -Any Shortness of Breath -Chest Pain -Fever or Chills SYMPTOMS OF GI BLEED + Call your doctor or nurse if you have signs of slow blood loss such as: -Black tarry bowel movements -Cold hands and feet -Weakness -Dizzyness Call 911 if you suddenly have signs of blood loss such as: -Vomiting blood -Fast heart rate -Feeling faint or blacking out -Passing bright red blood from your rectum NING Pena RN - 03/24/2023 12:38 PM EST Old Ostomy Site: Pack with Normal Saline (Wet to dry)- twice per day Your wound has packing with normal saline and a gauze or pad covering over the packing. Change the entire dressing twice each day. Change the gauze or pad cover dressing anytime it is wet, soiled or loose. Remove your old dressing and the packing and shower, gently cleaning the wound. Pat the wound dry with a clean towel. Replace the wound dressing as instructed. Pack the wound space loosely with kerlix fluffs that are moistened with normal saline. Cover with dry sterile dressing secured with tape. Abdominal Binder You have been given an abdominal binder to wear after your surgery. Wear it every day for the next 30 days or until your doctor instructs you to stop wearing it. Use your abdominal binder while awake as much as possible. NING Echavarria RN - 03/31/2023 9:06 AM EST Images from the original note were not included. Using Oxygen at Home Your healthcare provider has prescribed oxygen to help make breathing easier for you. You will be shown how to use your oxygen unit. Below are some guidelines on using oxygen at home safely. Do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 reversal surgery, risks and benefits. Consent completed and his questions were answered. Will schedule a surgery date with General Surgery. Ruth Blair Colorectal Fellow Associated attestation - Alycia Richardson MD - 10/28/2022 2:24 PM EDT Attending Attestation I have seen and examined this patient with the resident. The above note has been reviewed and amended where appropriate, and I agree with the assessment and plan. Addendum findings and plan: 67 y.o. 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 He has now completed adjuvant chemotherapy without evidence of disease on surveillance, and would like to consider ileostomy reversal. I discussed with him the expectations around ileostomy reversal with an ileorectal anastomosis, including bowel function, which is typically looser / mushy, more frequent bowel movements compared to those prior to his colectomy; however, he should have good continence given good baseline sphincter / pelvic floor tone. We also discussed relative indications for a diverting ileostomy in the setting of ileorectal anastomosis (poor nutrition or baseline health status, wound healing disorder, pelvic outlet obstruction, pelvic infection)-- none of which apply. I think it reasonable to attempt MIS ileostomy reversal / anastomosis, and briefly discussed his ventral hernia with my ab wall expert colleague, Dr. Tricia Maxwell. We will coordinate an appointment with her, followed by combined scheduling for minimally invasive / possible open approach. We discussed thoroughly the preoperative preparation, technical conduct, risks/benefits/alternatives, expected hospital recovery, and expected postoperative course, of robotic/laparoscopic possible open ileostomy reversal. The patient had an opportunity to ask and have all questions answered. The patient wishes to proceed, signed consent in clinic, and will schedule in the near future. ERAS teaching about perioperative care was provided by our RN in clinic today. Alycia Richardson MD, MEd Spare Hand Colon and Rectal Surgery documented in this encounter [facility] 10-16-2022 Instructions Rena Dumont RN - 10/16/2022 2:00 PM EDT Referral to Tricia Maxwell-General Surgery re: Hernia Repair Surgery with Dr. Richardson Preparing for Surgery A nurse will call you by 4 p.m. the day before your surgery to check the time, type of surgery and to answer any questions you may have. If you do not receive a call by 4 p.m., please call the [facility] at . Follow these instructions before coming to the hospital: Do not eat or drink anything (including water, coffee, candy, gum or mints) after midnight before your surgery. Only take the medicine your surgeon or anesthesiologist told you to take by mouth the morning of your surgery and Ensure Pre-Surgery drink if directed to do so. You may brush your teeth, but do not swallow the water. It is important to have an empty stomach before your surgery. Do not smoke/use any sort of tobacco after 6 p.m. the night before your surgery. You may take a bath or shower the morning of your surgery. Wear casual, loose-fitting clothing to the hospital. Do not wear makeup, nail serbian or hair pins to the hospital. Please remove any body piercing's. Please leave jewelry and other valuables at home. Bring a storage case for contact lenses or glasses. They cannot be worn during surgery. If you take medicines on a routine basis, please bring an updated list of medications with you. Limit the number of people bringing you to the hospital. Adult patients should be escorted by one adult. Arrive at the hospital two hours before your surgery, or as directed by your surgeon s office, to allow time to get you ready for surgery. If you have a living will or durable power of consumer attorney, please bring a copy of the documents with you. IF YOU USE CPAP BRING YOUR MACHINE WITH YOU TO THE HOSPITAL ALONG WITH THE PRESCRIPTION FOR CPAP PRESSURE LEVELS If you develop any illness, such as a cold, sore throat, cough, or fever, before your surgery, call the [facility] at and our office at Diet You may have a regular diet the day before. Nothing to eat or drink (NPO) after midnight except for certain medications (See medication guidelines that were given to you during you pre-op visit) and the Ensure Pre-Surgery clear nutrition drink (see information below for directions on this drink before surgery). You will be provided with two bottles of Ensure Pre-Surgery Clear Carbohydrate drink. What is Ensure Pre-Surgery clear nutrition drink, and what does it do? Surgery creates unique nutrition needs for your body. Ensure Pre-Surgery Clear Carbohydrate drink is formulated for those needs with carbohydrates and antioxidants to help your body recover after surgery. What is the drink important? Your healthcare provider has recommended this specialized Ensure nutrition drink to help your body prepare for, and recover from, surgery. It's important that you follow your doctor's nutrition recommendations to help with recovery. Pre-Surgery Carbohydrate-Loading Drinks have been shown to help patient recovery: Reduced nausea and vomiting after surgery Reduced pain after surgery Reduced time in the hospital When should I drink Ensure Pre-Surgery? We recommend you drink 1 bottle the night before surgery and drink 1 bottle the morning of your surgery up to 2 hours before surgery. This should be consumed quickly (in less than 5 minutes, rather than sipped over time). You should not have anything to eat or drink after midnight before surgery except your doctor's approved medications with a sip of water and this Ensure Pre-Surgery clear nutrition drink that should be consumed in the morning of surgery and finish it no later than 2 hours prior to surgery time. You should have nothing to eat or drink at all 2 hours prior to your surgery. Nutritional Prehabilitation We found that patients who are nutritionally boosted prior to surgery and after surgery recover faster. Our recommendation is for you to use two nutritional supplements per day for 14 days before and 14 days after surgery to support a healthy diet. These supplements help rebuild muscle for strength and energy during recovery from surgery. Adding nutrition supplements to your diet prior to surgery has been clinically shown to help significantly improve health outcomes. Patient who drank Ensure Enlive, Ensure Plus High Protein, or similar comparable high protein/high calorie supplements, twice daily saw improvements in nutritional status, weight gain, and vitamin D levels. Please note: This is a general guideline. The time frame before surgery may be shorter if your surgery is scheduled sooner than 14 days. If available, we will provide you with a bottle of Ensure Plus High Protein (or Glucerna if you are diabetic) as a sample for you to use. You will need to purchase additional nutrition supplements. Some examples of nutrition supplements we recommend are Ensure Enlive and Ensure Plus High Protein (or Glucerna Hunger Smart or Protein Smart if diabetic). These can be found at all major retailers and on [employer]. If you are unable to find these supplements, then we recommend that you find a nutrition supplement that contain between 20-30 grams of protein and between 250-350 calories. Please be aware that the protein supplements, such as Ensure Enlive and Ensure Plus High Protein are different than the Ensure Pre-Surgery Clear Nutrition Drink. Protein Nutrition supplements, such as Ensure Enlive, Ensure Plus High Protein, or Glucerna should not be drank the day of surgery. The only nutrition drink that you should drink the morning of surgery is Ensure Pre-Surgery Clear Nutrition Drink. Exercise and Improve Your Strength Before Surgery Being in good physical shape can help you recover from surgery more quickly and with fewer problems. The stronger you are before surgery, the easier things will be for you after surgery. Exercise 30 minutes each day most days of the week. Walking in your neighborhood or on a treadmill, riding a bike, and strength training using light weights are all good options. Try to increase the amount of time or how hard you are exercising every few days to build up your strength and stamina. If you have a regular exercise routine most days of the week, stay with it until your surgery. Your surgeon may have you see a physical therapist (PT) before your surgery if you are not very active or you are weak. Stop Tobacco Use If you smoke or use other tobacco products you need to stop 4 weeks before the surgery. You also need to avoid tobacco use for up to 8 weeks after surgery to help your wound healing. Talk to your doctor about a smoking cessation program. You can also get help through: [facility], National Quit Line, [place] Lung Association, [place] [employer], Smokefree.gov website Stop Alcohol Use If you drink alcohol you will need to stop drinking 4 weeks before the surgery to reduce your risk of problems after surgery. Avoid alcohol up to 8 weeks after your surgery to help reduce your risk of infection and to help your wound heal more quickly. Talk to your doctor if you need help to stop alcohol use. You may also find these resources helpful:Alcoholics Anonymous (AA) http://www.aa.org/ Rethinking Drinking https://www.rethinkingdrinking.ni aaa.nih.gov/ National Sylvester of Alcohol Abuse and Alcoholism https://niaaa.nih.gov/ Jere Geiger 526-845-0696 -Inpatient, partial hospitalization and outpatient services for teens or adults and their families, as well as educational programs are offered. PREOPERATIVE PAIN MANAGEMENT Most people can have some pain after surgery. Good pain control helps you feel comfortable so you can take deep breaths, walk and sleep better. This can help lower the risk of complications such as pneumonia or blood clots after surgery. Pain control starts before surgery Your doctor may prescribe medicine to help control your pain. Medications that you may be given before surgery include: Acetaminophen (Tylenol) Oxycodone Gabapentin Other types of medications that you may be given include anti-anxiety and anti-nausea medicines. Taking your pain medicine as ordered by your doctor will bring you the most relief as your body heals. Pain Relief Procedures In addition to medications, your surgeon and/or anesthesiologist may recommend a pain relieving procedure that will be done before you go into the operating room. Spinal Spinal analgesia is a procedure that can provide substantial pain relief after surgery. After cleaning and numbing the skin, a needle is advanced to the intrathecal space (it does not go into your spinal cord). After the needle is in the correct place, pain relieving medication is injected and then the needle is removed. Rare side effects from intrathecal injection may include: headaches, numbness or tingling in the lower legs, back soreness, bleeding, allergic reaction or infection. Epidural Epidural analgesia is another way to give pain medicine after surgery. A very thin plastic tube called an epidural catheter is placed in your back just before surgery. A small pump that delivers numbing medication is attached to the epidural catheter. The catheter is taped to your back and you will be able to move around in bed or walk. The epidural can stay in until 24-48 hours before discharge from the hospital. Rare side effects from an epidural may include: headaches, bleeding, allergic reaction or infection. Alternative Pain Relief Options If the previously mentioned pain relief procedures are not best for you, do not worry, there are alternative options to provide pain relief after surgery. Patient Controlled Analgesia (also known as a BRAZER CONTROLLED ATMOSPHERIC FURNACE) A BRAZER CONTROLLED ATMOSPHERIC FURNACE is a pain pump that could be used to help control pain. The pain medicine is ordered by your doctor. The pump is connected to your IV line and you can push a button when you have pain. This will give a small amount of pain medicine into your blood stream. You should be the only person to push the button. Your nurse will give you further instructions about this pump. Pain control without medication Many patients find that using non-drug therapy for pain control brings them additional relief. Options include, but are not limited to: Relaxation Exercise or movement Distraction, such as reading, watching a movie or solange Aromatherapy Heat or cold therapy (limit time of use Talk to a staff member to learn more. Getting Your Skin Ready for Surgery You are scheduled to have a surgery that involves cutting through the skin. Because germs live on everyone's skin, there is a greater chance of getting an infection. To lessen your chance of getting an infection, you need to take special care of your skin before the surgery. Follow These Instructions: You may be given or you will need to buy a special soap called 4% chlorhexidine gluconate or CHG. Common brand names for this soap are Hex-A-Clens or Hibiclens. You will need 2 of the 4-ounce bottles or Hibiclens Foam wash. There may be a store brand that is less costly. Ask your pharmacist where to find it in the drug store. It is often with first aid supplies. You may want to call ahead to check that they have the CHG soap in the store. Do not shave near the site where your doctor will be making the cut for your surgery for at least 48 hours before surgery. You need to shower with the CHG soap two times before your surgery: _ The evening before your surgery. _ Again the morning of your surgery. Cleaning Your Skin with CHG * 1. Start by washing your hair as usual with your normal shampoo and wash your body with regular soap. Rinse your hair and body very well to remove any shampoo or soap that might be on your skin. 2. Wet a clean washcloth and turn off the shower. 3. Put the CHG soap on the wet clean washcloth. 4. Apply the CHG soap to your whole body from the neck down only. Do not use CHG soap on your face and be careful not to get the CHG in your eyes or ears. CHG soap does not lather well. Put more CHG on the cloth as you cover more of your body. You should use about 4 ounces or 1/2 cup of CHG with each shower. Note: If you are using the Hibiclens (chlorhexidine) Foam wash, then apply 3 pumps of wash directly onto your skin and lather your body from the neck down. 5. Wash your body gently for 5 minutes, paying special attention to the part on your body where the surgery will be done. Be sure to wash the back of your neck, under your arms, your belly button, private parts and your legs down to your toes. Do not scrub too hard. 6. Turn the shower back on and rinse well to get the CHG soap off your body. 7. Pat yourself dry with a clean, dry towel. 8. Do not use any lotions, moisturizer, make-up or other products on the skin near the part of your body that will be cut for surgery. 9. Put on clean clothes. Be sure to repeat the shower the morning of your surgery. *Special Notes If you are to have a cut made into your scalp, you need to wash your hair with CHG each time your shower with CHG. Wash your hair with regular shampoo and rinse it well with water. Put a large amount of the CHG into your palm and then work it through your hair and scalp. It will not lather like your shampoo. Be careful not to get CHG into your eyes or ears. Rinse with clean water. If you do not have a shower or you are not able to get into the shower, do a sponge bath each time. Do not wash your hair unless you are to have a cut into your scalp. First, bathe with a washcloth and regular soap. Rinse with clean water. Then get a clean washcloth and use the CHG to wash your body. Rinse with another clean washcloth and plain water. Dry with a clean towel. If you have any questions about cleaning your skin, call your doctor s office. Current Outpatient Medications Medication Sig ibuprofen 100 MG/5ML oral suspension Hold 5 days before surgery documented in this encounter [facility] 09-19-2022 History of Presen t illness Narrative GI Medical Oncology Clinic Note Attending: Dr. Tripp Visit Date: 09/19/2022 Chief Complaint Patient presents with Follow-up INTERVAL HISTORY Mr. Jensen presents today by himself for surveillance follow-up for history of colon cancer. He continues to do well with no new concerns. Energy good and remains active. 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 Appetite good and weight stable. Ileostomy functioning well. During his last sigmoidoscopy, his local counter hop recommended evaluation for Yogesh procedure reversal. Pt wants to meet with Dr. Bruce Mathis per a friend's strong recommendation. Denies fevers, chills, worsening dyspnea, chest pain, vision changes, headaches, mouth sores, nausea, vomiting, constipation, diarrhea, melena, hematochezia, urinary changes, new pain, peripheral neuropathy, or rashes. Denies changes in HPI, PMH, PSH, ROS, except as noted above. CURRENT THERAPY None; on surveillance CANCER HISTORY Agustin Jensen initially presented to [facility] on 12/31/16 as a transfer from [facility] for bowel obstruction secondary to presumed cecal mass. CT A/P did not show obvious cecal mass but demonstrated nonspecific thickening of the right colon, distal transverse colon, and proximal left colon of unclear etiology. Colonoscopy demonstrated near completely obstructing sigmoid mass. Pathology from colonoscopy returned adenocarcinoma. Patient underwent a subtotal colectomy and ileostomy on 01/07/17, due to significant distension and serosal tearing of cecum with impending perforation. 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 His post operative course was complicated by midline incisional wound infection, requiring extended wound care and TPN. 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 Pt has been on surveillance since then. Most recent flexible sigmoidoscopy on 07/11/21 showed no concerns, next recommended in 3 years. His most recent surveillance scan on 11/15/21 showed JENNIFER. MOST RECENT SCANS CT CHEST WITH CONTRAST, 11/15/2021 IMPRESSION: 1. No evidence for intrathoracic metastatic disease. 2. Incidental aberrant right subclavian artery. 3. Please see the CT of the abdomen and pelvis from the same date. CT ABDOMEN/PELVIS WITH CONTRAST, 11/15/2021 IMPRESSION: 1. Stable examination including postoperative changes from prior colectomy and Browne's pouch formation, without definite evidence of recurrent/metastatic disease or abdominopelvic lymphadenopathy. 2. Ancillary findings as described above. PHYSICAL EXAM BP 140/89 Pulse 80 Temp 97.6 F (36.4 C) (Oral) Resp 20 Wt 91.2 kg (201 lb 1.6 oz) SpO2 94% BMI 29.22 kg/m Smoking Status Former General Appearance: Alert and oriented x3, in no acute distress. Well appearing. HEENT: Head atraumatic, normocephalic. No scleral icterus. Wearing a mask. Neck: Supple. Lungs: Clear to auscultation bilaterally. No wheezes, rales or rhonchi. Heart: Rate and rhythm regular. No murmur, gallop or rub. Abdomen: soft, nontender, nondistended. Ileostomy noted to RUQ. Stable large incisional hernia noted. : No CVA tenderness. Neuro: Cranial nerves grossly intact. No focal motor or sensory deficits. Musculoskeletal: Gait steady Lymph: No cervical, supraclavicular, infraclavicular, axillary or inguinal adenopathy. Psych: Pleasant affect. No sign of agitation. Skin: No rash, bruising or petechiae. No jaundice noted. Good skin turgor. LABORATORY Results for orders placed or performed in visit on 09/19/22 CMPN WITHOUT GLUCOSE Result Value Ref Range Sodium 137 135 - 145 mmol/L Potassium 3.9 3.5 - 5.0 mmol/L Chloride 102 98 - 108 mmol/L BUN 19 7 - 25 mg/dL Creatinine 1.14 0.70 - 1.30 mg/dL Calcium 9.5 8.6 - 10.5 mg/dL ALP 44 32 - 126 U/L AST 22 10 - 39 U/L Total Protein 7.5 6.4 - 8.3 g/dL Albumin 4.5 3.5 - 5.0 g/dL Bilirubin Total 0.6 <1.5 mg/dL CO2 28 21 - 31 mmol/L ALT 24 10 - 52 U/L Bun/Crea Ratio 17 Anion Gap 11 7 - 17 mmol/L eGFR, CKD-EPI, Male 70 >=60 mL/min/1.73m2 CEA Result Value Ref Range Cea 4.6 <=5.0 ng/mL PSA, SCREENING Result Value Ref Range PSA (Prostate Sp Ag) 1.10 <=4.00 ng/mL CBC AND ELECTRONIC DIFF Result Value Ref Range WBC Count 6.65 3.73 - 10.10 K/uL RBC Count 4.90 4.38 - 5.83 M/uL Hemoglobin 15.6 13.4 - 16.8 g/dL Hematocrit 45.7 39.6 - 48.8 % Mean Cell Volume 93.3 79.0 - 94.5 fL Mean Cell Hgb 31.8 26.1 - 33.3 pg Mean Cell Hgb Conc 34.1 31.9 - 36.5 g/dL RBC Distribution 12.4 10.9 - 14.3 % Platelet Count 201 146 - 337 K/uL Mean Platelet Volume 9.6 8.7 - 12.3 fL DIFF STATUS Electronic Differential Segs + Bands Auto 58.5 % Immature Grans % 0.3 % Lymphocyte % Auto 28.1 % Monocyte % Auto 9.9 % Eosinophil % Auto 1.8 % Basophil % Auto 1.4 % Nucleated RBC 0.0 <=0.2 /100 WBC Segs + Bands,Absolute Auto 3.89 1.57 - 6.19 K/uL Immature Grans Absolute <0.04 <=0.07 K/uL Abs Lymph Auto 1.87 0.83 - 3.57 K/uL Abs Duval Auto 0.66 0.24 - 0.93 K/uL Abs Eos Auto 0.12 0.00 - 0.48 K/uL Abs Baso Auto 0.09 0.00 - 0.09 K/uL Assessment and Plan Agustin Jensen is a 66 y.o. male with a hx of a [id number] (CLAUDIA) sigmoid colon adenocarcinoma s/p subtotal colectomy and ileostomy in December 2016. He was treated with adjuvant FOLFOX from 03/12/17-08/19/17 - last C6D15 oxaliplatin dose held due to progressive neuropathy. Pt has been on surveillance since then. He had a flex sig in June 2021 with no polyps removed, next due in 3 years. Last surveillance scan in Nov 2021 showed no definite evidence of disease. Colon Cancer Surveillance: He continues doing well without new concerns. PS 0. VSS. Lab reviewed, WNL. CEA WNL. Per Dr. Tripp, there is no need to have another surveillance CT. Pt has no evidence of disease recurrence for the past 5 years. He may follow up with PCP for annual CEA check. He will continue flex sig with local provider. Will place a referral to Dr. Bruce Mathis to evaluate for possible Yogesh procedure reversal, per pt request. Prostate cancer screening: PSA WNL. Pt may return to us PRN. He will contact the office if any concern or question arises in the future. VIKRAM Linda documented in this encounter [facility] 09-19-2022 Instructions Franci Kee RN - 09/19/2022 11:40 AM EDT Return to us as needed. Marquise Guerra CNP will call you if there are any concerns with your labs. Referral: Dr. Mathis documented in this encounter [facility] 11-22-2021 History of Presen t illness Narrative GI Medical Oncology Clinic Note Attending: Dr. Tripp Visit Date: 11/22/2021 Chief Complaint Patient presents with Follow-up Under surveillance for Colon carcinoma INTERVAL HISTORY Mr. Jensen presents today by himself for surveillance follow-up for history of colon cancer. He continues to do well with no new concerns. Today delgado his 5 years of surveillance. Denies fevers, chills, worsening dyspnea, chest pain, nausea, vomiting, bowel habits changes, melena, hematochezia, urinary changes, new pain, or rashes. Denies changes in HPI, PMH, PSH, ROS, except as noted above. CURRENT THERAPY None; on surveillance CANCER HISTORY Agustin Jensen initially presented to [facility] on 12/[facility]/16 as a transfer from [facility] for bowel obstruction secondary to presumed cecal mass. CT A/P did not show obvious cecal mass but demonstrated nonspecific thickening of the right colon, distal transverse colon, and proximal left colon of unclear etiology. Colonoscopy demonstrated near completely obstructing sigmoid mass. Pathology from colonoscopy returned adenocarcinoma. Patient underwent a subtotal colectomy and ileostomy on 01/07/17, due to significant distension and serosal tearing of cecum with impending perforation. 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 His post operative course was complicated by midline incisional wound infection, requiring extended wound care and TPN. 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 Pt has been on surveillance since then. His last sigmoidoscopy was on 06/22/18 with multiple benign polyps removed, next due in [address] on 12/02/19 showed JENNIFER. Surveillance scan in Nov 2020 showed no definite evidence of disease. MOST RECENT SCANS CT ABDOMEN/PELVIS WITH CONTRAST, 11/15/2021 IMPRESSION: 1. Stable examination including postoperative changes from prior colectomy and Browne's pouch formation, without definite evidence of recurrent/metastatic disease or abdominopelvic lymphadenopathy. 2. Ancillary findings as described above. CT CHEST WITH CONTRAST, 11/15/2021 IMPRESSION: 1. No evidence for intrathoracic metastatic disease. 2. Incidental aberrant right subclavian artery. 3. Please see the CT of the abdomen and pelvis from the same date. PHYSICAL EXAM BP 140/87 Pulse 81 Temp 98.6 F (37 C) (Infrared) Resp 16 Ht 1.767 m (5' 9.57 ) Wt 92.6 kg (204 lb 1.6 oz) Comment: with shoes SpO2 96% Comment: room air BMI 29.65 kg/m Smoking Status Former Smoker General Appearance: Alert and oriented x3, in no acute distress. Well appearing. HEENT: Head atraumatic, normocephalic. No scleral icterus. Wearing a mask. Neck: Supple. Lungs: Clear to auscultation bilaterally. No wheezes, rales or rhonchi. Heart: Rate and rhythm regular. No murmur, gallop or rub. Abdomen: soft, nontender, nondistended. Ileostomy noted to RUQ. Stable large incisional hernia noted. : No CVA tenderness. Neuro: Cranial nerves grossly intact. No focal motor or sensory deficits. Musculoskeletal: Gait steady Lymph: No cervical, supraclavicular, infraclavicular, axillary or inguinal adenopathy. Psych: Pleasant affect. No sign of agitation. Skin: No rash, bruising or petechiae. No jaundice noted. Good skin turgor. LABORATORY Results for orders placed or performed in visit on 11/22/21 CMPN WITHOUT GLUCOSE Result Value Ref Range Sodium 137 135 - 145 mmol/L Potassium 4.1 3.5 - 5.0 mmol/L Chloride 105 98 - 108 mmol/L BUN 15 7 - 25 mg/dL Creatinine 1.17 0.70 - 1.30 mg/dL Calcium 9.1 8.6 - 10.5 mg/dL ALP 48 32 - 126 U/L AST 21 10 - 39 U/L Total Protein 7.5 6.4 - 8.3 g/dL Albumin 4.4 3.5 - 5.0 g/dL Bilirubin Total 0.5 <1.5 mg/dL CO2 25 21 - 31 mmol/L ALT 24 10 - 52 U/L Bun/Crea Ratio 13 Anion Gap 11 7 - 17 mmol/L eGFR, CKD-EPI, Male 66 >=60 mL/min/1.73m2 CBC AND ELECTRONIC DIFF Result Value Ref Range WBC Count 6.63 3.73 - 10.10 K/uL RBC Count 4.58 4.38 - 5.83 M/uL Hemoglobin 14.7 13.4 - 16.8 g/dL Hematocrit 42.1 39.6 - 48.8 % Mean Cell Volume 91.9 79.0 - 94.5 fL Mean Cell Hgb 32.1 26.1 - 33.3 pg Mean Cell Hgb Conc 34.9 31.9 - 36.5 g/dL RBC Distribution 12.7 10.9 - 14.3 % Platelet Count 221 146 - 337 K/uL Mean Platelet Volume 9.5 8.7 - 12.3 fL DIFF STATUS Electronic Differential Segs + Bands Auto 50.0 % Immature Grans % 0.3 % Lymphocyte % Auto 37.6 % Monocyte % Auto 9.0 % Eosinophil % Auto 2.0 % Basophil % Auto 1.1 % Nucleated RBC 0.0 <=0.2 /100 WBC Segs + Bands,Absolute Auto 3.32 1.57 - 6.19 K/uL Immature Grans Absolute <0.04 <=0.07 K/uL Abs Lymph Auto 2.49 0.83 - 3.57 K/uL Abs Duval Auto 0.60 0.24 - 0.93 K/uL Abs Eos Auto 0.13 0.00 - 0.48 K/uL Abs Baso Auto 0.07 0.00 - 0.09 K/uL Assessment and Plan Agustin Jensen is a 66 y.o. 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 Pt has been on surveillance since then. He had a flex sig in June 2018 with 5 hyperplastic polyps removed, next due in 3 years. Surveillance scan in Nov 2020 showed no definite evidence of disease. Today, he is doing well with no new concerns. Imaging reviewed; unremarkable. CEA has increased to 5.2, previously 3.7. Reordered labs to confirm CEA trend. Currently following up with his PCP for general management. PS 0. BP is 140/87 today. On physical examination, heart is regular rate and rhythm. Lungs are clear to auscultation bilaterally. Abdomen is soft, nontender, and nondistended. Patient was agreeable to plan of care discussed today, and will call our office if any symptoms or concerns arise in the interim. RTC: At the end of December via tele-health visit to follow up with CEA, due to mildly elevation of CEA today. Documented by Brayden De, for Dr. Tripp on 07/30/2021 at 3:00 PM All medical record entries made by the Scribe were at my direction and personally dictated by me, uSze Tripp. I have reviewed and edited the chart and agree that the record accurately reflects my personal performance of the history, physical exam, assessment and plan. I have also personally directed, reviewed, and agree with the discharge instructions. Suze Tripp MD MS [employer] [employer]-Clinical documented in this encounter [facility] 11-22-2021 Instructions Alexandra Osorio RN - 11/22/2021 1:20 PM EDT You will have a tele-health visit with Dr. Tripp at end of December to review CEA level. Have lab drawn locally prior to this tele-health visit. documented in this encounter [facility] Diagnosis Malignant neoplasm of descending colon [facility] Diagnosis Malignant neoplasm of descending colon- Primary [facility] Diagnosis History of colon cancer- Primary Personal history of malignant neoplasm of large intestine Encounter for preventive care Screening for prostate cancer Special screening for malignant neoplasm of prostate [facility] Diagnosis Ileostomy in place- Primary Ileostomy status History of colon cancer Personal history of malignant neoplasm of large intestine Ventral hernia without obstruction or gangrene Ventral hernia, unspecified, without mention of obstruction or gangrene [facility] Diagnosis Ventral hernia without obstruction or gangrene- Primary Ventral hernia, unspecified, without mention of obstruction or gangrene [facility]* Diagnosis Attention to ileostomy- Primary History of colon cancer Personal history of malignant neoplasm of large intestine Ileostomy in place Ileostomy status Ventral hernia without obstruction or gangrene Ventral hernia, unspecified, without mention of obstruction or gangrene Attention to ileostomy Malignant neoplasm of descending colon Acute respiratory failure with hypoxia Acute respiratory failure [facility] Consultation (Routine) - New Request Specialty Diagnoses / Procedures Referred By Silvio rojas Referred To Contact Surgical Oncology Diagnoses History of colon cancer Kristofer Guerra APRN-CNP [address] [place] [address] Referral ID Status Reason Start Date Expiration Date V isits Requested Visits Authorized [id number] New Request 09/21/2022 10/16/2023 1 1 [facility] Consultation (Routine) - New Request Specialty Diagnoses / Procedures Referred By Silvio rojas Referred To Contact General Surgery Diagnoses History of colon cancer Ileostomy in place Ventral hernia without obstruction or gangrene Alycia Richardson MD [address] [place] [address] Referral ID Status Reason Start Date Expiration Date V isits Requested Visits Authorized [id number] New Request 10/16/2022 11/10/2023 1 1 [facility] Reason for Referral Specialty Diagnoses / Procedures Referred By Contac t Referred To Contact Diagnoses Malignant neoplasm of descending colon Procedures CT ABDOMEN/PELVIS WITH CONTRAST CHG CT SCAN,ABDOMENT AND PELVIS,W CONTRAST Suze Tripp MD [address] [place] [address] Referral ID Status Reason Start Date Expiration Date V isits Requested Visits Authorized [id number] New Request 05/24/2021 06/18/2022 1 1 Specialty Diagnoses / Procedures Referred By Contac t Referred To Contact Procedures ECG Sriram Banks, REMOTE SENSING ADVISOR-BRAND MARKETING COORDINATOR [address] [address] Referral ID Status Reason Start Date Expiration Date V isits Requested Visits Authorized [id number] New Request 03/26/2023 04/19/2024 1 1 Specialty Diagnoses / Procedures Referred By Contac t Referred To Contact Social Work Diagnoses Ventral hernia without obstruction or gangrene Attention to ileostomy Malignant neoplasm of descending colon Marlene Kellogg, REMOTE SENSING ADVISOR-BRAND MARKETING COORDINATOR [address] [address] Referral ID Status Reason Start Date Expiration Date V isits Requested Visits Authorized [id number] New Request 03/25/2023 04/18/2024 1 1 Specialty Diagnoses / Procedures Referred By Contac t Referred To Contact Procedures Alcyia Nicholas MD [address] [place] [address] Referral ID Status Reason Start Date Expiration Date V isits Requested Visits Authorized [id number] New Request 03/25/2023 04/18/2024 1 1 Advance Directives Latest Code Status on File Code Status Date Activated Date Inactivated Comments Full Code 12/31/2016 10:56 PM 01/22/2017 7:30 PM Latest Code Status on File Code Status Date Activated Date Inactivated Comments Full Code 12/31/2016 10:56 PM 01/22/2017 7:30 PM Latest Code Status on File Code Status Date Activated Date Inactivated Comments Full Code 12/31/2016 10:56 PM 01/22/2017 7:30 PM Latest Code Status on File Code Status Date Activated Date Inactivated Comments Full Code 12/31/2016 10:56 PM 01/22/2017 7:30 PM Latest Code Status on File Code Status Date Activated Date Inactivated Comments Full Code 03/24/2023 7:35 PM Code Status History Code Status Date Activated Date Inactivated Comments Full Code 12/31/2016 10:56 PM 01/22/2017 7:30 PM Summary Purpose Family History No Family History Records Found Additional Source Comments Reason for Visit (unrecogniz ed section and content) Referral ID Status Reason Start Date Expiration Date V isits Requested Visits Authorized [id number] New Request 05/24/2021 06/18/2022 1 1 Reason Comments Labs Only Reason Comments Follow-up Under surveillance f or Colon carcinoma Reason Comments Follow-up Reason Comments New Patient Discussion of surger y to reconnect the bowel. Specialty Diagnoses / Procedures Referred By Silvio rojas Referred To Contact Surgical Oncology Diagnoses History of colon cancer Kristofer Guerra, REMOTE SENSING ADVISOR-BRAND MARKETING COORDINATOR [address] [place] [address] Referral ID Status Reason Start Date Expiration Date V isits Requested Visits Authorized [id number] New Request 09/21/2022 10/16/2023 1 1 Reason Comments Consult Here to discuss abdo juanito hernia repair at the same time as ostomy reversal. Hernia for past 3 years. Specialty Diagnoses / Procedures Referred By Silvio rojas Referred To Contact General Surgery Diagnoses History of colon cancer Ileostomy in place Ventral hernia without obstruction or gangrene Alycia Richardson MD [address] [place] [address] Referral ID Status Reason Start Date Expiration Date V isits Requested Visits Authorized [id number] New Request 10/16/2022 11/10/2023 1 1 Specialty Diagnoses / Procedures Referred By Silvio t Referred To Contact Diagnoses History of colon cancer Ileostomy in place Ventral hernia without obstruction or gangrene History of colon cancer [Z85.038] Ileostomy in place [Z93.2] Ventral hernia without obstruction or gangrene [K43.9] Procedures OK LAP, SURG CLOSE ENTEROSTOMY RESECT ANAST OK RPR AA HERNIA 1ST > 10 CM REDUCIBLE OK MUSCLE-SKIN FLAP,TRUNK TAKE-DOWN ENTEROSTOMY W/ RESECTION & ANASTOMOSIS LAPAROSCOPIC REPAIR HERNIA ABDOMINAL INITIAL REDUCIBLE GREATER THAN 10 CM LAPAROSCOPIC FLAP MUSCLE/MYOCUTANEOUS/FASCIOC UTANEOUS TRUNK Alycia Richardson MD [address] [place] [address] [facility] [address] [place] [address] Referral ID Status Reason Start Date Expiration Date Visits Re quested Visits Authorized [id number] 1 1 Care Teams (unrecognized sec tion and content) Tool And Die Technician Relationship Specialty Start Date End Date Kaylie Madrigal MD [address] [place], [place] [phone] PCP - General Family Medicine 08/19/17 Tool And Die Technician Relationship Specialty Start Date End Date Kaylie Madrigal MD [address] [place], [place] [phone] PCP - General Family Medicine 08/19/17 Tool And Die Technician Relationship Specialty Start Date End Date Kaylie Madrigal MD [address] [place], [place] [phone] PCP - General Family Medicine 08/19/17 Tool And Die Technician Relationship Specialty Start Date End Date Kaylie Madrigal MD [address] [place], [place] [phone] PCP - General Family Medicine 08/19/17 Tool And Die Technician Relationship Specialty Start Date End Date Kaylie Madrigal MD [address] [place] [address] PCP - General Family Medicine 08/19/17 Claritza Castro, gas stove servicer helper 03/27/23 (unrecognized sect ion and content) No Status Records Found INFORMATION SOURCE (unrecogn ized section and content) Scheduled Active and Recently Administ ered Medications (unrecognized section and content) PRN Medication Order 03/29/2023 03/30/2023 03/31/2023 Albuterol (PROVENTIL) (2.5 MG/3ML) 0.083% inhalation solution 2.5 mg 2.5 mg, Nebulization, EVERY 6 HOURS NEEDED, Starting on Thu03/25/23 at 0812, Until Thu03/31/23 at 1628, Wheezing hydrALAZINE (APRESOLINE) 10 mg in Sodium chloride 0.9%, with overfill 60.5 mL (total volume) IVPB 10 mg, Intravenous, at 242 mL/hr, Administer over 15 Minutes, EVERY 6 HOURS NEEDED, Starting on 03/28/23 at 0329, Until Thu03/31/23 at 1628, SBP > 160 mmHg Loperamide (IMODIUM) capsule 2 mg 2 mg, Oral, 4 TIMES DAILY NEEDED, Starting on 03/30/23 at 0838, Until Thu03/31/23 at 1628, Diarrhea Melatonin tablet 6 mg 6 mg, Oral, DAILY AT BEDTIME NEEDED, Starting on Thu03/24/23 at 1935, Until Thu03/31/23 at 1628, Insomnia, Post-op/Post-Proc 2229 (Given - Provider: Yolie Maxwell RN) Ondansetron 4mg/2ml (ZOFRAN) injection 4 mg 4 mg, Intravenous, EVERY 6 HOURS NEEDED, Starting on Thu03/25/23 at 1935, Until Thu03/31/23 at 1628, Nausea / Vomiting, 2nd Line Nausea / Vomiting, Post-op/Post-Proc oxyCODONE (ROXICODONE) tablet 5 mg(Linked Group 1) 5 mg, Oral, EVERY 4 HOURS NEEDED, Starting on 03/28/23 at 0910, Until Thu03/31/23 at 1628, Moderate Pain, Severe Pain, Use as initial dose. Higher dose may be administered if lower dose was previously documented as ineffective and did not result in adverse effects (RR<10, negative change in RASS of 2 or more). oxyCODONE HCl (ROXICODONE) tablet 10 mg(Linked Group 1) 10 mg, Oral, EVERY 4 HOURS NEEDED, Starting on Thu03/28/23 at 0910, Until Thu03/31/23 at 1628, Moderate Pain, Severe Pain, Higher dose may be administered if lower dose was previously documented as ineffective and did not result in adverse effects (RR<10, negative change in RASS of 2 or more). Decrease back to lower dose if patient has adverse effects or no PRN use in previous 12 hours. Hold for sedation. Phenol (CHLORASEPTIC) 1.4 % oral spray 1 spray 1 spray, Mouth/Throat, NEEDED, Starting on Thu03/24/23 at 1935, Until Thu03/31/23 at 1628, Sore Throat, Patient may self-administer., Post-op/Post-Proc Prochlorperazine (COMPAZINE) injection 10 mg(Linked Group 2) 10 mg, Intravenous, EVERY 6 HOURS NEEDED, Starting on Thu03/24/23 at 1935, Until Thu03/31/23 at 1628, Nausea / Vomiting, moderate nausea and vomiting, 1st line (if NOT tolerating PO), For IV route: dilute dose with 10mL normal saline and give by slow IV push at a rate of 5mg/min. Maximum of 40mg/day., Post-op/Post-Proc Prochlorperazine (COMPAZINE) tablet 10 mg(Linked Group 2) 10 mg, Oral, EVERY 6 HOURS NEEDED, Starting on Thu03/24/23 at 1935, Until Thu03/31/23 at 1628, Nausea / Vomiting, Refractory Nausea Vomiting, 1st line (if tolerating PO), Post-op/Post-Proc Sodium chloride (OCEAN) 0.65 % nasal spray 2 spray 2 spray, Nasal, NEEDED, Starting on Thu03/27/23 at 1326, Until Thu03/31/23 at 1628, Congestion Linked Groups Order Group 1: oxyCODONE (ROXICODONE) tablet 5 mgJump to med 5 mg, Oral, EVERY 4 HOURS NEEDED, Starting on 03/28/23 at 0910, Until Thu03/31/23 at 1628, Moderate Pain, Severe Pain
Use as initial dose. Higher dose may be administered if lower dose was previously documented as ineffective and did not result in adverse effects (RR<10, negative change in RASS of 2 or more).
Or oxyCODONE HCl (ROXICODONE) tablet 10 mgJump to med 10 mg, Oral, EVERY 4 HOURS NEEDED, Starting on 03/28/23 at 0910, Until Thu03/31/23 at 1628, Moderate Pain, Severe Pain
Higher dose may be administered if lower dose was previously documented as ineffective and did not result in adverse effects (RR<10, negative change in RASS of 2 or more). Decrease back to lower dose if patient has adverse effects or no PRN use in previous 12 hours. Hold for sedation.
Group 2: Prochlorperazine (COMPAZINE) injection 10 mgJump to med 10 mg, Intravenous, EVERY 6 HOURS NEEDED, Starting on Thu03/24/23 at 1935, Until Thu03/31/23 at 1628, Nausea / Vomiting, moderate nausea and vomiting, 1st line (if NOT tolerating PO)
For IV route: dilute dose with 10mL normal saline and give by slow IV push at a rate of 5mg/min. Maximum of 40mg/day.
Post-op/Post-Proc Or Prochlorperazine (COMPAZINE) tablet 10 mgJump to med 10 mg, Oral, EVERY 6 HOURS NEEDED, Starting on Thu03/24/23 at 1935, Until Thu03/31/23 at 1628, Nausea / Vomiting, Refractory Nausea Vomiting, 1st line (if tolerating PO), Post-op/Post-Proc FOR RECORDS PERTAINING TO PATIENTS WHO ARE OR HAVE BEEN ENROLLED IN A CHEMICAL DEPENDENCY/SUBSTANCEABUSE PROGRAM, SOME INFORMATION MAY BE OMITTED. This clinical summary was aggregated from multiple sources. Caution should be exercised in using it in the provision of clinical care. This summary normalizes information from multiple sources, and as a consequence, information in this document may materially change the coding, format and clinical context of patient data. In addition, data may be omitted in some cases. CLINICAL DECISIONS SHOULD BE BASED ON THE PRIMARY CLINICAL RECORDS. [facility]. provides no warranty or guarantee of the accuracy or completeness of information in this document.
[2023-04-18] MEDS: Piperacil/Tazobactam 3.375 GM in 0.9% Normal Saline (50mL MB+) 50 ML IV (12:18)
[2023-04-18] MEDS: Lidocaine 1% (20 ml mdv) 20 ML Vial 5 ML INFILT (12:18)
== END 2023-04-18 13:00 | disposition home or self-care (01) ==
PROVIDERS: Emergency Provider Emergency Medicine; PCP Family Medicine; Visit Provider Emergency Medicine
DX: L02.211 Cutaneous abscess of abdominal wall (principal); Z87.891 Personal history of nicotine dependence; Z98.890 Other specified postprocedural states; Z85.038 Personal history of other malignant neoplasm of large intestine
CPT/HCPCS: 10160; 74177; 80048; 85025; 87070; 87077; 87186; 87205; 96365; 99284; Q9967; A4216

== ENCOUNTER 2023-07-26 17:08 | Emergency (ER) | payer MEDICARE, BC, SELFPAY ==
[2023-07-26 17:09] VITALS: BP 133/96; PULSE 89; RESP 18; TEMP 36.5; O2SAT 97; BMI 27.3
--- NOTE | 2023-07-26 18:18 | CT_ITS ---
We are attempting to reach an attending provider to discuss findings. An addendum with communication details will be sent when the communication is complete. STUDY: CT ABDOMEN AND PELVIS WITH CONTRAST REASON FOR EXAM: Male, 67 years old. anterior abd wall drainage, poss collection RADIATION DOSAGE (If Supplied By Facility): CTDIvol = ( 16.96 ) mGy, DLP = ( 1047.24 ) mGycm TECHNIQUE: Transaxial images were obtained from the dome of the diaphragm to the symphysis pubis without oral contrast. IV 75mL Isovue-370 was administered. Sagittal and coronal images were reconstructed. Individualized dose optimization techniques were used for this CT. COMPARISON: None. FINDINGS: The visualized lung bases are unremarkable. The visualized portions of the heart are within normal limits. Normal liver. There are multiple gallstones. Normal spleen. Normal pancreas. Normal bilateral adrenal glands. Normal right kidney. Normal left kidney. Normal visualized stomach. Normal small intestine. Status post subtotal colectomy with an anastomosis of the mid sigmoid colon. The appendix is visualized and appears normal. Normal abdominal aorta. Normal inferior vena cava. Normal retroperitoneum. Normal urinary bladder. There are prostatic calcifications. In the midline superior to the umbilicus there is stranding of the fat and a 1 x 3 cm area of fluid. There are multiple adjacent loops of small bowel adjacent to the musculature of the anterior bowel wall and enterocutaneous fistula cannot be excluded. There are diffuse degenerative changes of the visualized lumbar spine. CT/Abdomen/Pelvis W IV Cont ONLY IMPRESSION: Postoperative changes and fluid in the midline of the anterior abdominal wall possibly from enterocutaneous fistula. CT with oral contrast may be useful. Electronically Signed: Brayden Soliz MD at 20:23 EDT ,
--- NOTE | 2023-07-26 18:19 | EDS_ITS ---
HPI HPI - GI History of Present Illness Chief Complaint: Wound Check Informant: patient Narrative Narrative: Patient had a ventral herniorrhaphy earlier in the year at [facility], his postoperative period was complicated by an abscess formation which we drained here and put him on antibiotics and everything cleared up nicely. Over the last 2 or 3 weeks, he feels like he has had some gradual reddening of some of this area along with some swelling, and over the last several days she has had some drainage from 2 different areas. He denies any pain, fevers, chills, systemic symptoms or other issues. [facility] Medical History Colon cancer Home Medications NK 12/07/21 [History Last Taken Unknown] cephalexin 500 mg capsule 500 mg PO Q6 #40 CAPSULES 07/26/23 [Rx Last Taken Unknown] Allergy/AdvReac Type Severity Reaction Status Date / Time No Known Allergies Allergy Verified 07/26/23 17:09 Surgical History History of colostomy reversal History of hernia repair Social History Smoking Status: Former smoker substance use type: does not use ROS ROS ED Constitutional Constitutional ED: Denies chills or fever(s) Eyes Eyes: Denies change in vision or diplopia ENT ENT ED: Denies rhinorrhea or sore throat Cardiovascular Cardiovascular: Denies chest pain or palpitations Respiratory/Chest Respiratory/Chest: Denies cough or dyspnea Gastrointestinal Gastrointestinal: Denies abdominal pain, diarrhea, nausea or vomiting Genitourinary Genitourinary ED: Denies dysuria or hematuria Musculoskeletal Musculoskeletal: Denies back pain or neck pain Integumentary Reports as per HPI and wounds Neurologic Neurologic: Denies headache(s), paresthesias or weakness Psychiatric Psychiatric: Denies anxiety or suicidal thoughts EXAM Physical Exam Const Vital Signs: 07/26/23 17:09 07/26/23 21:09 Temperature 97.7 F L Temperature Source Temporal Pulse Rate 89 85 Respiratory Rate 18 18 Blood Pressure 133/96 H 144/104 H Blood Pressure Mean 108 117 Pulse Ox 97 96 Oxygen Delivery Method Room Air Room Air Positive well nourished and well developed General Appearance ED: well developed and NAD HEENT Reports moist mucous membranes normocephalic and atraumatic Eyes PERRL and EOMs intact bilaterally Neck full ROM and supple Resp normal respiratory effort GI non-tender and non-distended GI Narrative: Abdominal wall complex healed wound with multiple areas of scar tissue. There is no tenderness. There is some erythema, mostly looks like scar tissue but some blanching hyperemia to the right. There are 2 small wounds that are approximately 10 cm away from each other, 1 at the superior aspect of this complex, the other inferior, he indicates that both have drained small amount of fluid, not able to express anything from either one of them at this time. There is what feels like either a collection or scar tissue or induration around the more caudal wound, but there is no tenderness. Auscultation: normoactive bowel sounds Palpation: soft Back/Spine no CVA tenderness General Back: other FROM Extremity normal to inspection General Extremety ED: Negative for edema, pulses abnormal or tenderness General Extremity: Negative for edema or pulses abnormal Neuro oriented x3, CN's II-XII intact bilaterally and no sensory deficits noted Sensorium / Orientation: awake and alert Motor Exam: strength 5/5 throughout Skin no rashes or lesions noted Skin Narrative: Small wounds anterior abdominal wall ventral hernia site, see above MDM MDM MDM Narrative Medical decision making narrative: Clinically I am not confident enough that there is anything to drain, so I offered to CT to evaluate for possible seromas or abscess. Patient is amenable this will need to be done with IV contrast so an IV was placed and labs were obtained prior to obtaining imaging. Initially IV contrasted CT was obtained, I reviewed the images and the results and also had a discussion with the radiologist. I agree with his interpretation, basically saying that the small bowel is matted up against the area with the mesh, and if there is drainage in the skin above that he is not able to rule out an enterocutaneous fistula. I made a low suspicion for that, but we did obtain a CT with oral contrast in addition afterwards, and it ruled out enterocutaneous fistula. Given that, there are some small collections, but they are small and I am not comfortable draining them at the bedside. Therefore I am going encourage patient to continue dressing changes, place him on cephalexin, and have him follow-up with the surgeon at [facility] he is comfortable with that plan and ready for discharge. Lab Data Attestation: I reviewed the patient's lab results. Labs: Laboratory Results - last 24 hr 07/26/23 18:40 WBC 7.1 RBC 4.98 Hgb 14.5 Hct 43.6 MCV 87.6 MCH 29.1 MCHC 33.3 RDW Std Deviation 47.4 H RDW Coeff of Sofie 14.8 H Plt Count 232 MPV 8.8 Immature Gran % (Auto) 0.100 Neut % (Auto) 49.2 Lymph % (Auto) 39.9 [place] % (Auto) 8.5 Eos % (Auto) 1.7 Baso % (Auto) 0.6 Absolute Neuts (auto) 3.5 Absolute Lymphs (auto) 2.82 Nucleated RBC % 0 Sodium 138 Potassium 3.7 Chloride 106 Carbon Dioxide 23.0 Anion Gap 9 BUN 17 Creatinine 1.05 Estim Creat Clear Calc 68.56 Est GFR (MDRD) Af Amer 90 Est GFR (MDRD) Non-Af 74 BUN/Creatinine Ratio 16.2 Glucose 79 Calcium 8.9 Radiography Diagnostic Testing: Clinical Impression(s) from Imaging Studies Abdomen/Pelvis CT 07/26/23 18:18 IMPRESSION: Postoperative changes and fluid in the midline of the anterior abdominal wall possibly from enterocutaneous fistula. CT with oral contrast may be useful. Electronically Signed: Brayden Soliz MD at 20:23 EDT Reading Location ID and State: [id number] / [employer] , Service support , ADDENDUM: 07/26/232049 IMPRESSION: Postoperative changes and fluid in the midline of the anterior abdominal wall possibly from enterocutaneous fistula. CT with oral contrast may be useful. N.B. : The above Results were Read Back by Brayden Soliz MD to Curly Guardado MD, and understanding confirmed on 07/26/2023 20:43:56 (ET). Electronically Signed: Brayden Soliz MD at 20:23 EDT Reading Location ID and State: [id number] / [employer] Tel , Service support , Abdomen CT 07/26/23 20:45 IMPRESSION: Postoperative changes and fluid in the anterior abdominal wall but no CT evidence of enterocutaneous fistula. Electronically Signed: Brayden Soliz MD at 23:21 EDT , Discharge Plan Triage Chief Complaint: Wound Check ED Provider: Curly Guardado Dx/Rx/DC Orders Clinical Impression: Postoperative seroma of skin after non-dermatologic procedure Instructions: ED Seroma, Postsurgical Prescriptions: Continued cephalexin 500 mg capsule 500 mg PO Q6 Qty: 40 0RF Discontinued sulfamethoxazole-trimethoprim [sulfamethoxazole-trimethoprim] 800-160 mg tablet 1 tab PO BID Qty: 20 0RF No Action NK Primary Care Provider: Francisco J Madrigal Referrals: Francisco J Madrigal MD [Primary Care Provider] - (Make an appointment with your surgeon at [facility] and follow-up when able.) Activity Restrictions/Additional Instructions: Frequent dressing changes to continue pulling fluid away from the wounds. Disposition Disposition: Home, Self Care
[2023-07-26 18:47] LABS: Absolute Lymphocyte Count 2.82 X10^3/uL (0.83-4.51); Absolute Neutrophil Count 3.5 X10^3/uL (2.0-7.7); Basophil# 0.04 X10^3/uL; Basophil% 0.6 % (0-1); Eosinophil# 0.12 X10^3/uL; Eosinophils% 1.7 % (0-5); Hematocrit 43.6 % (40-54); Hemoglobin 14.5 g/dL (13.0-16.5); Lymphocyte # 2.82 X10^3/ul (0.83-4.51); Lymphocyte % 39.9 % (19-41); Mean Corp Hgb Conc 33.3 g/dL (32-36); Mean Corpuscular Hgb 29.1 pg (27.0-32.0); Mean Corpuscular Volume 87.6 fL (80-94); Mean Platelet Vol. 8.8 fl (6.2-12.0); Monocyte% 8.5 % (0-10); NRBC Flagged by Analyzer 0 % (0-5); Neutrophil # 3.48 X10^3/uL (2.7-7.7); Neutrophil % 49.2 % (47-70); Platelet Count 232 K/mm3 (150-450); RBC Distribution Width CV 14.8 % (11.6-14.6); RBC Distribution Width SD 47.4 fl (35.1-43.9); Red Blood Count 4.98 M/mm3 (4.6-6.2); White Blood Count 7.1 K/mm3 (4.4-11.0)
[2023-07-26 19:02] LABS: Anion Gap 9 (5-15); BUN 17 mg/dL (7-18); BUN/Creat Ratio 16.2 RATIO (10-20); Calcium,Total 8.9 mg/dL (8.5-10.1); Chloride 106 mmol/L (98-107); Creatinine, Serum 1.05 mg/dL (0.70-1.30); EST Glomerular Filtration Rate 74 mL/min (>60); Est Glom Filt Rate - Afr Amer 90 mL/min (>60); Estimated Creatinine Clearance 68.56 ml/min; Glucose 79 mg/dL (74-106); Potassium 3.7 mmol/L (3.5-5.1); Sodium Level 138 mmol/L (136-145)
--- NOTE | 2023-07-26 20:45 | CT_ITS ---
STUDY: CT ABDOMEN AND PELVIS WITHOUT CONTRAST REASON FOR EXAM: Male, [address]; eval for enterocutaneous fistula RADIATION DOSAGE (If Supplied By Facility): CTDIvol = ( 9.12 ) mGy, DLP = ( 442.16 ) mGycm TECHNIQUE: Transaxial images were obtained from the dome of the diaphragm to the symphysis pubis with oral contrast, and without intravenous contrast. Sagittal and coronal images were reconstructed. Individualized dose optimization techniques were used for this CT. COMPARISON: Earlier today FINDINGS: The visualized lung bases are unremarkable. The visualized portions of the heart are within normal limits. Normal liver. There are multiple gallstones. Normal spleen. Normal pancreas. Normal bilateral adrenal glands. Normal right kidney. Normal left kidney. Normal visualized stomach. Normal small intestine. Status post subtotal colectomy with an anastomosis in the mid sigmoid colon. The appendix is visualized and appears normal. Normal abdominal aorta. Normal inferior vena cava. Normal retroperitoneum. Normal urinary bladder. Postsurgical changes and thin fluid within the midline of the anterior abdominal wall at and superior to the umbilicus. Subjacent to the anterior abdominal wall within the cerebrum multiple loops of small bowel which are filled with oral contrast and gas. There is no extravasation of Gastroview oral contrast into the anterior abdominal wall to suggest enterocutaneous fistula. There are diffuse degenerative changes of the visualized lumbar spine. CT/Abdomen/Pel W ORAL Cont Only IMPRESSION: Postoperative changes and fluid in the anterior abdominal wall but no CT evidence of enterocutaneous fistula. Electronically Signed: Brayden Soliz MD at 23:21 EDT ,
[2023-07-26 21:09] VITALS: BP 144/104; PULSE 85; RESP 18; O2SAT 96
[2023-07-26] MEDS: Cephalexin 250 MG Capsule 500 MG PO (23:39)
[2023-07-26 23:42] VITALS: BP 130/78; PULSE 78; RESP 18; TEMP 36.4; O2SAT 99
== END 2023-07-26 23:42 | disposition home or self-care (01) ==
PROVIDERS: Emergency Provider Emergency Medicine; PCP Family Medicine; Visit Provider Emergency Medicine
DX: L76.32 Postprocedural hematoma of skin and subcutaneous tissue following other procedure (principal); Z87.891 Personal history of nicotine dependence; Z85.038 Personal history of other malignant neoplasm of large intestine
CPT/HCPCS: 74176; 74177; 80048; 85025; 99283; Q9967; A4216

== ENCOUNTER → 2023-11-19 | Outpatient (CLI) | payer MEDICARE, BC, SELFPAY ==
[2023-11-19 12:31] LABS: Cholesterol 165 mg/dL (200); High Density Lipoprotein 38 mg/dL; PSA,Total - Annual Screen 1.61 ng/mL (0.00-4.00); Triglycerides 142 mg/dL; Very Low Density Lipoprotein 28 mg/dL (5-40)
== END | disposition home or self-care (01) ==
LOC: MFPLAB 09:42
PROVIDERS: PCP Family Medicine; Visit Provider Family Medicine
DX: Z13.220 Encounter for screening for lipoid disorders (principal); Z12.5 Encounter for screening for malignant neoplasm of prostate
CPT/HCPCS: 36415; 80061; 84153; G0103